=== PATIENT | male | born 1950 | race Caucasian/White ===

== ENCOUNTER → 2023-07-03 06:21 | Day surgery (SDC) | payer OTHER, SELFPAY ==
[2023-07-03 07:21] LABS: Glucose - Point of Care 99 mg/dl (70-99)
== END ==
LOC: GI 06:21
PROVIDERS: ATTENDING PHYSICIAN Surgery; FAMILY PHYSICIAN Family Medicine
DX: Z12.11 Encounter for screening for malignant neoplasm of colon (principal); Z86.010 Personal history of colon polyps; K57.30 Diverticulosis of large intestine without perforation or abscess without bleeding; K64.4 Residual hemorrhoidal skin tags; D12.5 Benign neoplasm of sigmoid colon
CPT/HCPCS: 45380; 88305; 82962

== ENCOUNTER → 2024-06-27 14:16 | Outpatient (REF) | payer OTHER, SELFPAY | LOC: DHSLP 14:16 | PROVIDERS: ATTENDING PHYSICIAN Internal Medicine; FAMILY PHYSICIAN Family Medicine | DX: G47.33 Obstructive sleep apnea (adult) (pediatric) (principal); R09.02 Hypoxemia; G47.00 Insomnia, unspecified | CPT/HCPCS: 95810 ==

== ENCOUNTER 2024-10-08 13:57 | Inpatient (IN) | payer OTHER, SELFPAY ==
[2024-10-08] VITALS (13 sets, daily range): BP systolic 92–129; BP diastolic 44–70; PULSE 75; BMI 30.9; BMI 29.9
--- NOTE | 2024-10-08 09:33 | ED.GENMED ---
History of Present Illness
General
Chief Complaint: Abnormal Lab Value
Time Seen by Provider: 10/08/24 09:26
History of Present Illness
History of Present Illness:
74-year-old male history of diabetes presenting with abnormal labs. Patient states that he had routine blood work that showed a hemoglobin of 6.9 and platelets 15 prompting ED arrival. Patient reports history of hemorrhoids and noticed blood with
wiping. Patient states that he feels more cold for the past 3 to 4 weeks. Patient denies chest pain, shortness of breath, dizziness, or abdominal pain. Patient is not on blood thinners.
Past History
Past History
ED Past Medical History: Hypercholesterolemia, NIDDM, VA and Other (Diverticulitis)
ED Past Surgical History: Cardiac (Stent X1)
Social History
Tobacco: Former smoker
Alcohol: None
Personal:
Living: with family
Phy Exam
Physical Exam
Physical Exam:
General: Alert, no acute distress
Head: NCAT
Eyes: clear conjunctiva
Neck: supple
Cardiac: regular rate and rhythm, no murmur
Lungs: clear to auscultation bilaterally. No wheezes, rales, or rhonchi. Speaking full unlabored sentences. No respiratory distress.
Abdomen: soft, nondistended nontender. No rebound or guarding.
MSK: no lower extremity edema bilaterally. No deformity
: brown stool, guaiac negative. nonthrombosed nonbleeding external hemorrhoids
Skin: warm, dry
Neuro: Alert and oriented x3. no focal deficits
Course
Orders/Labs/Results
Orders:
Orders
10/08/24 Breakfast
1800 calorie (15 carb) Diabetic
At Your Request: Full Participation
10/08/24 10:12
Type+Screen Urgent
Basic Metabolic Panel Urgent
CBC/With Diff [Complete Blood Count/With Diff] Urgent
Ferritin Urgent
Comment: ADD ON
Folate Urgent
Comment: ADD ON
Reticulocyte Count Urgent
Comment: ADD ON
Vitamin B12 Urgent
Comment: ADD ON
10/08/24 13:08
Admit/Transfer Patient As Directed
Co-Sign Provider:
Level of Care: Inpatient admission
Assign to:: Telemetry
Physician / Group: husam
Diagnosis: pancytopenia
Reason for Telemetry: Other
Other Reason for Telemetry: pancytopenia
Date to Stop Telemetry: 10/10/24
Time to Stop Telemetry: 11:00
Reason for Hospitalization: pancytopenia
Expected length of stay greater than two midnights?: Yes
ELOS- Estimated Length of Stay in days: 3
I certify the patient meets the requirements for IP care: Yes
PRN Pain Medication Management As Directed
May give lesser potent ordered pain med per pt: Yes
preference::
Protocol:: Medication orders for pain may be administered in a
manner that supports deferring to patient preference
when the pt is:
- Requesting an ordered lesser potent pain medication.
Least to most potent pain medications are defined
as: acetaminophen < NSAID < tramadol < opioids
(morphine, oxycodone, hydromorphone).
- Requesting a lesser dose of the same medication IF
ORDERED.
- Requesting a less intrusive route of administration
if both routes are prescribed by the provider (PO <
IV).
10/08/24 13:10
Code Status As Directed
Resuscitation Status: Full Code
10/08/24 17:07
HEMATOLOGY CONSULT Routine
Consulting Provider: Wili Duffy
Was physician already notified: Yes
10/08/24 17:08
Acetaminophen [Tylenol] 650 mg PO Q4HPRN PRN
Bisacodyl [Dulcolax] 10 mg RECTAL [id number] PRN
Dextrose 50%-Water [Dextrose 50% Syringe] 12.5 grams IV [id number] PRN
Docusate W/Senna [Senokot-S] 1 tablet PO BIDPRN PRN
Glucagon [GlucaGen] 1 mg IM PRN PRN
Insulin Aspart Corrective Low [Novolog Flexpen-Low Resistance] See Protocol SC AC
Polyethylene Glycol Powder [Miralax] 17 grams PO DAILYPRN PRN
10/08/24 17:08
Activity As Directed
Activity Level: As Tolerated
Bedside Glucose Monitoring As Directed
Frequency: AC&HS
Additional Instructions:: Change to q6h if pt on TPN, tube feeding or not eating
Pneumatic Compression Sleeves As Directed
Type: Knee high
Vital Signs As Directed
Frequency: Per unit guidelines
DX Deep Vein Thrombosis Video Routine
10/08/24 18:00
Rosuvastatin Calcium [Crestor] 40 mg PO QPM
10/09/24 06:27
Basic Metabolic Panel IN AM
Complete Blood Count/No Diff IN AM
Glycohemoglobin (HgbA1c) IN AM
10/09/24 08:00
Aspirin Chewable [Low Strength Aspirin] 81 mg PO DAILY
Fenofibrate [Tricor] 48 mg PO DAILY
Lisinopril [Zestril] 5 mg PO DAILY
Metoprolol Xl [Toprol Xl] 25 mg PO DAILY
10/10/24 11:00
DC Protocol for Telemetry ONCE
Abnormal Lab Results
10/08/24
10:12
WBC 1.5 L* 10^3/uL
(4.8-10.8)
RBC 1.84 L 10^6/uL
(4.70-6.10)
Hgb 7.0 L g/dL
(13.0-18.0)
Hct 20.1 L* %
(39.0-52.0)
MCV 109.2 H fL
(80.0-94.0)
MCH 38.0 H pg
(27.0-31.0)
RDW 16.1 H %
(11.5-14.5)
Plt Count 17 L* 10^3/uL
(130-400)
Absolute Neuts (auto) 0.2 L* 10^3/uL
(1.4-6.5)
Immature Gran % 0.7 H %
(0-0.5)
Neutrophils % 12.9 L %
(42.2-75.2)
Lymphocytes % 83.0 H %
(20.5-51.1)
Chloride 109 H mmol/L
(98-107)
Carbon Dioxide 20 L mmol/L
(22-30)
Glucose 103 H mg/dl
(70-99)
Folate > 20.0 H ng/ml
(2.76-20)
Crossmatch IS Only See Detail
10/08/24 10:12
10/08/24 10:12
Vital Signs
Initial and Last Documented VS:
Initial Vital Signs
Temp Pulse Resp BP Pulse Ox
97.7 F 78 16 100/52 98
10/08/24 08:41 10/08/24 08:41 10/08/24 08:41 10/08/24 08:41 10/08/24 08:41
Last Documented Vital Signs
Temp Pulse Resp BP Pulse Ox
98.3 F 73 17 128/62 100
10/09/24 16:31 10/09/24 16:31 10/09/24 16:31 10/09/24 16:31 10/09/24 16:31
MDM/Problems Addressed
Differential Diagnosis Includes:
Anemia, thrombocytopenia, malignancy
MDM/Problems Addressed:
Results reviewed. Significant for pancytopenia with WBC 1.5, hemoglobin 7, platelets 17. Given patient is asymptomatic and not actively bleeding, will hold on transfusion at this time. Discussed with Dr. Duffy, hematology/oncology. Discussed with
hospitalist for admission
*Critical Care Note
Total Time (30-74mins, 75-104mins- exclusive of procedures): Not Applicable
ED Attending Note
-
Portions of this chart may have been created with voice recognition software.� Occasional wrong word or��sound alike� substitutions may have occurred due to the inherent limitations of voice recognition software.
Discharge Plan
Departure
Patient Disposition: Admit
Date of Disposition: 10/08/24
Time of Disposition: 12:44
Presentation/result/management discussed w/ accepting MD/DO: Hospitalist
Discharge Problem:
Pancytopenia
Interventions
Interventions:
*Risk Screen - Suicide Last Done: 10/08/24 08:41
*Neglect/Abuse Screening Last Done: 10/08/24 08:41
*ED COVID-19 Vaccine History Last Done: 10/08/24 10:27
*Nursing Disposition Last Done: 10/08/24 17:05
Discharge Date and Time
Discharge Date/Time: 10/08/24 17:05
[2024-10-08 10:35] LABS: Hematocrit 20.1 % (39.0-52.0); Mean Corp Hgb Conc. 34.8 g/dL (33.0-37.0); Mean Corpuscular Volume 109.2 fL (80.0-94.0); Platelet Count 17 10^3/uL (130-400); Red Blood Cell Count 1.84 10^6/uL (4.70-6.10); Red Cell Dist. Width 16.1 % (11.5-14.5); White Blood Cell Count 1.5 10^3/uL (4.8-10.8)
[2024-10-08 10:48] LABS: Blood Urea Nitrogen 19 mg/dl (9-20); Calcium 9.2 mg/dl (8.4-10.2); Carbon Dioxide 20 mmol/L (22-30); Chloride 109 mmol/L (98-107); Estimated Creatinine Clearance 83 ml/min; Glucose 103 mg/dl (70-99); Sodium 138 mmol/L (135-145); eGFR > 60.00
[2024-10-08 11:21] LABS: % Immature Granulocytes 0.7 % (0-0.5); % Monocytes 3.4 % (1.7-9.3); % Neutrophils 12.9 % (42.2-75.2); Absolute Lymphocytes 1.2 10^3/uL (1.2-3.4); Absolute Monocytes 0.1 10^3/uL (0.1-0.6); Absolute Neutrophils 0.2 10^3/uL (1.4-6.5); Nucleated Red Blood Cells % 0 % (-)
--- NOTE | 2024-10-08 12:54 | HPS.HSE ---
Addendum entered and electronically signed by Miguel Boone MD 10/08/24 14:07:
I saw and examined the patient.
The [employer]FT [employer] WR[employer] EXAMINER or PA's note was reviewed and I agree with the note.
Comment:
74-year-old male with past medical history of diabetes, hyperlipidemia, PCI now presents for pancytopenia from outpatient facility.� No clear fever, chills, sick contacts.� No obvious active GI bleed other than possible blood with wiping, indicative
of most likely hemorrhoids.� Not on any anticoagulation or antiplatelets.� Does acknowledge feeling more cold over the last 3 to 4 weeks.� Otherwise denies fever, chills, urinary symptoms, pulmonary symptoms.
Plan�heme consult.� Transfuse for hemoglobin greater than 7; transfuse platelets as per hematology.� Ideally goal over 10k if� no bleeding. Steroids as per hematology.� Will obtain urine and blood cultures for completeness. Bone marrow bx as per
heme depending on administration clearance. CT head for headache
Original Note:
Family Physician
-
Family Physician: Angela Lucio
Chief Complaint
-
abnormal blood work
History of Present Illness
74-year-old male history of diabetes,CAD presenting with abnormal labs. Patient states that he had routine blood work that showed a hemoglobin of 6.9 and platelets 15 prompting ED arrival. patient stated MEJIA from this morning. denied dizzy or
syncope. denied fever. stated chills for past few weeks. denied chest pain, sob. denied abdominal pain,n,v,d. patient has hemorrhoids but only bleeds rarely when wiping. denied dysuria or hematuria.
upon arrival he was noted pancytopenic. admitting for further managment.
Medical History
Past Medical History
Past Medical History: Reports Other
Additional Past Medical History:
CAD
DM
HLD
HTN
Past Surgical History: Reports Other
Additional Past Surgical History:
cardiac stent
Social History
Tobacco: Former Smoker
Alcohol: None
Drug: None
Personal:
Living: With Family
Family History
Family History: Not pertinent
Allergies / Home Medications
Allergies reflects when Allergies were last updated in [employer].
Home Medications with original date entered in [employer]
Allergy/Medication List:
Allergies
Allergy/AdvReac Type Severity Reaction Status Date / Time
amoxicillin Allergy Unknown Verified 08/29/18 11:22
sulfamethoxazole (From Allergy Unknown Verified 08/29/18 11:22
Septra)
trimethoprim (From ) Allergy Unknown Verified 08/29/18 11:22
Home Medications
lisinopril 5 mg tablet 5 mg PO DAILY 05/26/18
aspirin 81 mg chewable tablet 81 mg PO DAILY 05/27/18
metoprolol succinate 25 mg tablet,extended release 24 hr 25 mg PO DAILY ##90 05/27/18
B6 35 mg-B9 3 mg-B12 2 mg-D3 62.5 mcg-ALA 300 mg capsule,delay release (EB-N5 DR) 1 cap PO BID 10/08/24
acetaminophen 325 mg tablet (Tylenol) 650 mg PO Q6HPRN PRN mild pain 10/08/24
ascorbic acid (vitamin C) 500 mg tablet (Vitamin C) 500 mg PO DAILY 10/08/24
cholecalciferol (vitamin D3) 25 mcg (1,000 unit) tablet (Vitamin D3) 25 mcg PO DAILY 10/08/24
cyanocobalamin (vitamin B-12) 1,000 mcg tablet 1,000 mcg PO DAILY 10/08/24
empagliflozin 25 mg tablet 12.5 mg PO DAILY 10/08/24
fenofibrate micronized 134 mg capsule 134 mg PO DAILY 10/08/24
omega-3 fatty acids-fish oil 684 mg-1,200 mg capsule,delayed release 1 cap PO TID 10/08/24
psyllium 1 packet PO DAILYPRN PRN constipation 10/08/24
rosuvastatin 40 mg tablet (Crestor) 40 mg PO QPM 10/08/24
therapeutic multivitamin 1 tab PO DAILY 10/08/24
tirzepatide 12.5 mg/0.5 mL subcutaneous pen injector (Mounjaro) 12.5 mg SC STEINBERG@199910/08/24
Review of Systems
-
Constitutional: Reports No Symptoms
EENT: Reports No Symptoms
Respiratory: Reports No Symptoms
Cardiac: Reports No Symptoms
Abdomen/GI: Reports No Symptoms
: Reports No Symptoms
Musculoskeletal: Reports No Symptoms
Skin: Reports No Symptoms
Neurological: Reports Headache
Endocrine: Reports No Symptoms
Hematologic/Lymphatic: Reports No Symptoms
Psych: Reports No Symptoms
Physical Exam
Vital Signs
Vital Signs
Temp Pulse Resp BP Pulse Ox
97.7 F 77 16 101/50 100
10/08/24 08:41 10/08/24 12:47 10/08/24 08:41 10/08/24 12:00 10/08/24 12:45
Physical Exam
General: Well Developed, Well Nourished and No Apparent Distress
HEENT: NormoCephalic, Moist mucous membranes and Atraumatic
Respiratory: Clear
Cardiac: S1/S2 and Regular Rhythm; No Murmur or Rub
GI: Soft, Non Tender, Non Distended and Normal Bowel Sounds; No Organomegaly
Rectal: Deferred by Provider
Musculoskeletal: No Clubbing, No Cyanosis and No Edema
Skin: No Rash
Neuro: AO x 3 and Nonfocal/grossly intact
Psych: Calm
Laboratory Results
-
10/08/24 10:12
10/08/24 10:12
Laboratory Results
PT Cancelled 10/08/24 10:12
INR Cancelled 10/08/24 10:12
APTT Cancelled 10/08/24 10:12
Total Bilirubin Cancelled 10/08/24 10:12
AST Cancelled 10/08/24 10:12
ALT Cancelled 10/08/24 10:12
Alkaline Phosphatase Cancelled 10/08/24 10:12
Data Reviewed
-
Lab Data: Labs Reviewed by me
Impression/Plan
-
# Pancytopenia unclear cause
- Hematology consulted
- WBC 1.5, hemoglobin 7.0, platelets 17
-d/w hematology, plan for Bone Marrow Biopsy
-as per heme transfuse if hgb less than 7, and platelets less than 10
-transfusing with one unit of blood as per hematology.
-will obtain blood culture and UA
#headache
-will obtain MEJIA
# Coronary artery disease status post cardiac stent
- Aspirin
# Type 2 diabetes
- Hold Jardiance and Mounjaro
- Sliding scale, CHO diet
# Hyperlipidemia
- Fenofibrate, rosuvastatin continued
# Essential hypertension
- Lisinopril, metoprolol continue with hold parameters
# DVT prophylaxis
- SCDs
# CODE STATUS
- Full code
--- NOTE | 2024-10-08 13:38 | CON.ONC ---
Addendum entered and electronically signed by MELINDA Mcgowan 10/08/24 17:26:
Inpatient bone marrow biopsy approved by Dr. Tubbs -order placed and tiger texted interventional radiology
Addendum entered and electronically signed by Wili Duffy DO 10/08/24 15:36:
Patient was examined and chart reviewed independently. Agree with the impression and plan as outlined by MELINDA. Patient with progressive and severe pancytopenia likely with a primary bone marrow dysfunction with elevated leukocytes and lymphocytes.
He has a history of previous evaluation for flow cytometry which was negative for clonal process in 2020. although unlikely to be a transplant candidate at 74 his performance status would not obviously preclude this is a possibility. As such,
would consider irradiated and CMV negative blood products at this juncture. Bone marrow biopsy will likely be necessary for definitive diagnosis.
Original Note:
Consultation
-
Date Consultation Requested: 10/08/24
Date Consultation Performed: 10/08/24
Requesting Provider: Mahi LAWRENCE
Performing Provider: Wili Duffy
Reason for Consultation: pancytopenia
Impression
Impression
74yo M admitted for evaluation of acute pancytopenia
hx mild anemia, thrombocytopenia, leukocytosis/lymphocytosis with negative peripheral flow in 2020
vestibular Schwannoma
Plan
Plan
neutropenic precautions, monitor for infection. Currently no symptoms of acute infection and afebrile
transfuse Hgb <7 or as needed for sxs anemia.
transfuse platelet count <10, <20 if febrile, <50 if bleeding
Risk/benefit of transfusion reviewed and pt agreeable to transfusion prn
avoid nsaids, anticoagulation, and antiplatelet with platelet count <50,000
check iron studies, B12, folate
check DIC
check LDH, urate
Bone marrow biopsy purpose, risk/benefit discussed and patient is agreeable to bone marrow biopsy
Patient History
History of Present Illness
74yo M who presented at the advice of his PCP after routine blood work showed pancytopenia.
He denies any family or personal history of hematological or solid malignancy. He denies prior radiation, immunosuppressive drugs, or chemotherapy. He was previous evaluated by Dr. Zheng in 2020 for normocytic anemia, mild thrombocytopenia, and mild
leukocytosis with lymphocyte predominance. His Hgb was stable at that time 12-13gdL with a platelet count 120-140,000. His chronic lymphocytosis over several years remained stable between 10-12 that he was told could represent a monoclonal B
lymphocytosis of unknown significance with lymphocyte count <5x10^9/L and cytopenias could reflect a lymphoproliferative process. His peripheral flow showed no aberrant immunophenotypic expression, no blast so he deferred bone marrow biopsy at that
time.
Clinically, denies fever, chills, cough, chest pain, palpitations, n/v/d/c or abdominal pain. He reports that he is independent in ADLs and live an active lifestyle at baseline, however, he has noticed a decreased in exercise endurance over the past
5 weeks due to leg muscle fatigue. He reports a mild frontal headache since this morning but otherwise denies any other neurological symtpoms.
Patient is at bedsdie during visit provided updates and questions answered.
Past-Medical/Surgical History
PMH colon polyps, CAD, GA, DM2, JERRY, HLD, chronic urinary retention, vestibular schwannoma
PSH Angioplasty and Stent to Left Anterior Descending Artery-05/26/2018, Stapedectomy Left Ear -1992
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 former smoker. denies ETOH or recreational drugs
Family deneis malganncy
Patient Medication
�Medication �Instructions �Recorded �Confirmed �Last Taken �Type
lisinopril 5 mg tablet 5 mg PO DAILY 05/26/18 10/08/24 10/07/24 History
aspirin 81 mg chewable tablet 81 mg PO DAILY 05/27/18 10/08/24 10/07/24 Rx
metoprolol succinate 25 mg 25 mg PO DAILY ##90 05/27/18 10/08/24 10/07/24 Rx
tablet,extended release 24 hr
B6 35 mg-B9 3 mg-B12 2 mg-D3 62.5 1 cap PO BID 10/08/24 10/08/24 10/07/24 History
mcg-ALA 300 mg capsule,delay
release (EB-N5 DR)
acetaminophen 325 mg tablet 650 mg PO Q6HPRN PRN mild pain 10/08/24 10/08/24 10/07/24 History
(Tylenol)
ascorbic acid (vitamin C) 500 mg 500 mg PO DAILY 10/08/24 10/08/24 10/07/24 History
tablet (Vitamin C)
cholecalciferol (vitamin D3) 25 25 mcg PO DAILY 10/08/24 10/08/24 10/07/24 History
mcg (1,000 unit) tablet (Vitamin
D3)
cyanocobalamin (vitamin B-12) 1,000 mcg PO DAILY 10/08/24 10/08/24 10/07/24 History
1,000 mcg tablet
empagliflozin 25 mg tablet 12.5 mg PO DAILY 10/08/24 10/08/24 10/07/24 History
fenofibrate micronized 134 mg 134 mg PO DAILY 10/08/24 10/08/24 10/07/24 History
capsule
omega-3 fatty acids-fish oil 684 1 cap PO TID 10/08/24 10/08/24 10/07/24 History
mg-1,200 mg capsule,delayed release
psyllium 1 packet PO DAILYPRN PRN 10/08/24 10/08/24 10/08/24 History
constipation
rosuvastatin 40 mg tablet (Crestor) 40 mg PO QPM 10/08/24 10/08/24 10/07/24 History
therapeutic multivitamin 1 tab PO DAILY 10/08/24 10/08/24 10/07/24 History
tirzepatide 12.5 mg/0.5 mL 12.5 mg SC STEINBERG@199910/08/24 10/08/24 10/04/24 History
subcutaneous pen injector
(Ernestounheidiro)
Review of Systems
-
ROS is notable for HPI, otherwise negative
Physical Exam
-
General: Well Developed, Well Nourished, No Apparent Distress and Comfortable
HEENT: Moist Mucous Membranes; Negative Jaundice
Cardiology: Normal Sinus Rhythm
Pulmonary: Clear
GI: Soft
Extremities: Pulses Present; Negative Edema
Neurology: Non Focal
Skin: Warm
Hematologic / Lymphatic: No Lymphadenopathy
Psych: Calm
Labs
Lab Results
WBC 1.5 10^3/uL (4.8-10.8) L* 10/08/24 10:12
RBC 1.84 10^6/uL (4.70-6.10) L 10/08/24 10:12
Hgb 7.0 g/dL (13.0-18.0) L 10/08/24 10:12
Hct 20.1 % (39.0-52.0) L* 10/08/24 10:12
MCV 109.2 fL (80.0-94.0) H 10/08/24 10:12
MCH 38.0 pg (27.0-31.0) H 10/08/24 10:12
MCHC 34.8 g/dL (33.0-37.0) 10/08/24 10:12
RDW 16.1 % (11.5-14.5) H 10/08/24 10:12
Plt Count 17 10^3/uL (130-400) L* 10/08/24 10:12
MPV Not Reportable 10/08/24 10:12
Abs Immat Gran (auto) 0.0 10^3/uL (0-0.05) 10/08/24 10:12
Absolute Neuts (auto) 0.2 10^3/uL (1.4-6.5) L* 10/08/24 10:12
Absolute Lymphs (auto) 1.2 10^3/uL (1.2-3.4) 10/08/24 10:12
Absolute Monos (auto) 0.1 10^3/uL (0.1-0.6) 10/08/24 10:12
Absolute Eos (auto) 0.0 10^3/uL (0-0.7) 10/08/24 10:12
Absolute Basos (auto) 0.0 10^3/uL (0-0.2) 10/08/24 10:12
Immature Gran % 0.7 % (0-0.5) H 10/08/24 10:12
Neutrophils % 12.9 % (42.2-75.2) L 10/08/24 10:12
Lymphocytes % 83.0 % (20.5-51.1) H 10/08/24 10:12
Monocytes % 3.4 % (1.7-9.3) 10/08/24 10:12
Eosinophils % 0.0 % (0-6) 10/08/24 10:12
Basophils % 0.0 % (0-2) 10/08/24 10:12
Creatinine 0.8 mg/dL (0.7-1.3) 10/08/24 10:12
Vital Signs
Vital Signs
Temp Pulse Resp BP Pulse Ox
97.7 F 77 16 101/50 100
10/08/24 08:41 10/08/24 12:47 10/08/24 08:41 10/08/24 12:00 10/08/24 12:45
[2024-10-08 14:10] LABS: Reticulocyte Count 1.2 % (0.4-2.8)
[2024-10-08 16:17] LABS: Folate > 20.0 ng/ml (2.76-20); Vitamin B12 659 pg/ml (239-931)
--- NOTE | 2024-10-08 16:29 | CM ---
Met with patient in the ED
Pharmacy verified: [facility] @ [address] [facility], [place], [place]
Patient lives with ; one floor rancher; [address] + community; 1 step to enter; bath has stall shower w/ grab bar and seat; also has a shower chair if needed
PLOF: patient reported he is independent with ambulation, stairs, and ADLs; retired; drives
DME: CPAP; reported he has a Glucometer but has not used it in a while
will transport home
No SNF or Home Health utilization history
Plan: anticipate discharge to home; Case Management will monitor for discharge needs/services
[2024-10-08 17:29] LABS: Glucose - Point of Care 102 mg/dl (70-99)
[2024-10-08] MEDS: CRESTOR 40 MG PO (17:40)
--- NOTE | 2024-10-08 18:40 | PTCARENOTE ---
1840 1 unit of PRBC started. Possible transfusion reaction education given to pt. PT AAOX3. All needs met. Will stay with pt for 15 minutes per policy.
[2024-10-08 21:00] LABS: Glucose - Point of Care 105 mg/dl (70-99)
[2024-10-09] VITALS (14 sets, daily range): BP systolic 65–128; BP diastolic 50–77
[2024-10-09 07:21] LABS: Iron 138 ug/dl (49-181); LDH 153 U/L (120-246); Uric Acid 3.1 mg/dl (3.5-8.5)
[2024-10-09 07:25] LABS: Hematocrit 20.9 % (39.0-52.0); Hemoglobin 7.4 g/dL (13.0-18.0); Mean Corp Hgb Conc. 35.4 g/dL (33.0-37.0); Mean Corpuscular Hgb 36.5 pg (27.0-31.0); Platelet Count 14 10^3/uL (130-400); Red Blood Cell Count 2.03 10^6/uL (4.70-6.10); Red Cell Dist. Width 18.5 % (11.5-14.5); White Blood Cell Count 1.6 10^3/uL (4.8-10.8)
[2024-10-09 07:30] LABS: Percent Saturation 39 % (20-50); Total Iron Binding Capacity 350 ug/dl (261-462)
[2024-10-09 07:32] LABS: INR 1.04; PT 14.1 Sec (11.4-14.6)
[2024-10-09 07:33] LABS: APTT 25.8 Sec (23.4-35.0); Fibrinogen 366 MG/DL (199-459)
[2024-10-09 07:35] LABS: Glucose - Point of Care 104 mg/dl (70-99)
[2024-10-09 07:36] LABS: D-Dimer 0.61 ug/mlFEU (0.00-0.50)
[2024-10-09 08:06] LABS: Blood Urea Nitrogen 16 mg/dl (9-20); Calcium 8.6 mg/dl (8.4-10.2); Carbon Dioxide 18 mmol/L (22-30); Chloride 112 mmol/L (98-107); Estimated Creatinine Clearance 94 ml/min; Glucose 97 mg/dl (70-99); Sodium 137 mmol/L (135-145); eGFR > 60.00
[2024-10-09] MEDS: TOPROL XL 25 MG PO (08:36)
[2024-10-09] MEDS: TRICOR 48 MG PO (08:37)
[2024-10-09] MEDS: ZESTRIL 5 MG PO (08:37)
[2024-10-09 09:46] LABS: Glycohemoglobin (HgbA1c) 5.3 % (4.0-5.6)
--- NOTE | 2024-10-09 11:20 | W.PN.ONC2 ---
Today's Communication / Plan
-
I will arrange for close follow for labs every Sat and for prn transfusion
I will arrange for OP follow up with Dr. Zheng upon discharge
Impression
Impression
74yo M admitted for evaluation of acute pancytopenia
hx mild anemia, thrombocytopenia, leukocytosis/lymphocytosis with negative peripheral flow in 2020
vestibular Schwannoma
Plan
Plan
neutropenic precautions, monitor for infection. Currently no symptoms of acute infection and afebrile
transfuse Hgb <7 or as needed for sxs anemia.
transfuse platelet count <10, <20 if febrile, <50 if bleeding
Risk/benefit of transfusion reviewed and pt agreeable to transfusion prn
avoid nsaids, anticoagulation, and antiplatelet with platelet count <50,000
Bone marrow biopsy today, risk/benefit discussed and patient is agreeable to bone marrow biopsy
Subjective/Objective
Subjective
denies fever or symptoms of infection
denies SOB or cough
improved fatigue and exercise tolerance after 1U prbc
denies over bleeding
Vital Signs:
Vital Signs
Temp Pulse Resp BP Pulse Ox
98.0 F 69 18 118/57 100
10/09/24 10:55 10/09/24 10:55 10/09/24 10:55 10/09/24 10:55 10/09/24 10:55
Lab Results:
Laboratory Data
WBC 1.6 10^3/uL (4.8-10.8) L* 10/09/24 06:27
Hgb 7.4 g/dL (13.0-18.0) L 10/09/24 06:27
Plt Count 14 10^3/uL (130-400) L* 10/09/24 06:27
PT 14.1 Sec (11.4-14.6) 10/09/24 06:27
INR 1.04 10/09/24 06:27
APTT 25.8 Sec (23.4-35.0) 10/09/24 06:27
eGFR > 60.00 10/09/24 06:27
Physical Exam
HEENT: Moist Mucous Membranes; No Jaundice
Cardiology: Normal Sinus Rhythm
Pulmonary: Clear
GI: Soft
Extremities: Pulses Present; No Edema
Orders
Orders
Orders From Last 24 Hours
10/08/24 13:58
Add On- LAB Routine
Precautions As Directed
10/08/24 13:59
Blood Bank Products [* Blood Bank Products] Routine
10/08/24 17:21
Consult Interventional Radiology [IRAD CONSULT] Routine
10/09/24 06:27
Copper, Serum [S] IN AM
D-Dimer IN AM
Fibrinogen IN AM
PT/INR [Prothrombin Time] IN AM
PTT IN AM
10/09/24 11:19
Blood Bank Products [* Blood Bank Products] Routine
[2024-10-09] MEDS: NSS (PRESERVATIVE FREE) 0.25 ML IV (11:43)
[2024-10-09] MEDS: ATIVAN 0.5 MG IV (11:43)
[2024-10-09] MEDS: FLUSH (NSS) 1 FLUSH IV (11:43)
[2024-10-09 13:22] LABS: Glucose - Point of Care 97 mg/dl (70-99)
--- NOTE | 2024-10-09 13:34 | W.PN.HOSP.TC ---
Addendum entered and electronically signed by Miguel Boone MD 10/09/24 15:50:
[id number]
Original Note:
Today's Communication/Plan
-
Bone marrow Bx
F/u close lab work with hematology outpatient
Assessment / Plan
Assessment / Plan
Physical Exam
General: Well Developed, Well Nourished and No Apparent Distress
HEENT: NormoCephalic, Moist mucous membranes and Atraumatic
Respiratory: Clear
Cardiac: S1/S2 and Regular Rhythm; No Murmur or Rub
GI: Soft, Non Tender, Non Distended and Normal Bowel Sounds; No Organomegaly
Rectal: Deferred by Provider
Musculoskeletal: No Clubbing, No Cyanosis and No Edema
Skin: No Rash
Neuro: AO x 3 and Nonfocal/grossly intact
Psych: Calm
# Pancytopenia unclear cause
- Hematology consulted
- WBC 1.5, hemoglobin 7.0, platelets 17
-d/w hematology, plan for Bone Marrow Biopsy
-as per heme transfuse if hgb less than 7, and platelets less than 10
-transfusing with one unit of blood as per hematology.
-UA neg; no evidence of infection
-Bone marrow bx today
-Close outpatient labs
-close follow for labs every Sat and for prn transfusion
-Onc outpt
#headache
-resolved
-ct head neg
# Coronary artery disease status post cardiac stent
- Aspirin
# Type 2 diabetes
- Hold Jardiance and Mounjaro
- Sliding scale, CHO diet
# Hyperlipidemia
- Fenofibrate, rosuvastatin continued
# Essential hypertension
- Lisinopril, metoprolol continue with hold parameters
# DVT prophylaxis
- SCDs
# CODE STATUS
- Full code
Possible DC today after bone marrow bx
More than 30 minutes spent in discharge including
Final examination of the patient
Summarizing hospital stay
Instructions for continuing care to all relevant caregivers
Preparation of discharge records, prescriptions, and referral forms
Total time spent (in minutes): 35
Anticipated Discharge: Today
Subjective/Interval History
-
Date of Service: October 09, 2024
No acute events overnight
Objective Data
-
Labs:
Laboratory Results
10/09/24
06:27
WBC 1.6 L*
Hgb 7.4 L
Hct 20.9 L*
Plt Count 14 L*
PT 14.1
INR 1.04
APTT 25.8
Sodium 137
Potassium 4.0
Chloride 112 H
Carbon Dioxide 18 L
BUN 16
Creatinine 0.7
Glucose 97
Calcium 8.6
Vital Signs:
Vital Signs
Temp Pulse Resp BP Pulse Ox
97.8 F 70 16 126/59 100
10/09/24 13:20 10/09/24 13:20 10/09/24 13:20 10/09/24 13:20 10/09/24 13:20
I&O
10/08/24 10/09/24 10/10/24
06:59 06:59 06:59
Intake Total 900 / 900 50 / 50
Output Total 1000 / 1000 200 / 200
Balance -100 / -100 -150 / -150
Review of Systems
-
History Source: Patient
All other systems: Not reviewed unless documented
Data Reviewed
-
CT Scan: Report Reviewed by me
Labs: Labs Reviewed by me
--- NOTE | 2024-10-09 13:41 | W.DS.TRANS ---
DC Summary - Customer Care Specialist
-
Discharge Instructions:
Discharge Diagnosis/Procedures pancytopenia
Diet Low Fat,Low Cholesterol,Diabetic, Carb
Controlled
Blood Work close follow for labs every Sat and for
prn transfusion
Instructions:
Stand-Alone Forms:
Changes to Home Medications: Yes
Discharge Medications:
DC Medications w/original date entered in [facility]
lisinopril 5 mg tablet 5 mg PO DAILY Blood Pressure 05/26/18
B6 35 mg-B9 3 mg-B12 2 mg-D3 62.5 mcg-ALA 300 mg capsule,delay release (EB-N5 DR) 1 cap PO BID Supplement 10/08/24
acetaminophen 325 mg tablet (Tylenol) 650 mg PO Q6HPRN PRN mild pain 10/08/24
ascorbic acid (vitamin C) 500 mg tablet (Vitamin C) 500 mg PO DAILY Supplement 10/08/24
aspirin 81 mg chewable tablet 81 mg PO DAILY Heart Disease/Condition 10/08/24
Held on 10/09/24. Instructions: Resume on 10/28/24. until cleared by Hematology
cholecalciferol (vitamin D3) 25 mcg (1,000 unit) tablet (Vitamin D3) 25 mcg PO DAILY Supplement 10/08/24
cyanocobalamin (vitamin B-12) 1,000 mcg tablet 1,000 mcg PO DAILY Supplement 10/08/24
empagliflozin 25 mg tablet 12.5 mg PO DAILY Diabetes 10/08/24
fenofibrate micronized 134 mg capsule 134 mg PO DAILY High Cholesterol 10/08/24
metoprolol succinate 25 mg tablet,extended release 24 hr 25 mg PO DAILY Blood Pressure 10/08/24
omega-3 fatty acids-fish oil 684 mg-1,200 mg capsule,delayed release 1 cap PO TID High Cholesterol 10/08/24
psyllium 1 packet PO DAILYPRN PRN constipation 10/08/24
rosuvastatin 40 mg tablet (Crestor) 40 mg PO QPM High Cholesterol 10/08/24
therapeutic multivitamin 1 tab PO DAILY Supplement 10/08/24
tirzepatide 12.5 mg/0.5 mL subcutaneous pen injector (Rosas) 12.5 mg SC STEINBERG@1999 Diabetes 10/08/24
Home Medication Changes
stop aspirin
Pending Results: No
[2024-10-09 16:27] LABS: Glucose - Point of Care 143 mg/dl (70-99)
--- NOTE | 2024-10-12 11:24 | CM ---
discharge dispo entered.
== END 2024-10-09 17:31 | disposition home or self-care (01) | DRG 810 ==
LOC: 3 WEST ACU 13:57
PROVIDERS: Nurse Practitioner Acute Care; Radiology Diagnostic Radiology; Registered Nurse; ADMITTING PHYSICIAN Internal Medicine; CONSULT PHYSICIAN Internal Medicine Hematology & Oncology; EMERGENCY PHYSICIAN Emergency Medicine; FAMILY PHYSICIAN Family Medicine
PROC: 30233N1 Transfusion of Nonautologous Red Blood Cells into Peripheral Vein, Percutaneous Approach (ICD-10-PCS; 2024-10-08)
PROC: 07DR3ZX Extraction of Iliac Bone Marrow, Percutaneous Approach, Diagnostic (ICD-10-PCS; 2024-10-09)
PROC: 30233R1 Transfusion of Nonautologous Platelets into Peripheral Vein, Percutaneous Approach (ICD-10-PCS; 2024-10-09)
PROC: 079T3ZX Drainage of Bone Marrow, Percutaneous Approach, Diagnostic (ICD-10-PCS; 2024-10-09)
DX: D61.818 Other pancytopenia (principal); Z87.891 Personal history of nicotine dependence; I25.10 Atherosclerotic heart disease of native coronary artery without angina pectoris; Z95.5 Presence of coronary angioplasty implant and graft; E11.9 Type 2 diabetes mellitus without complications; E78.00 Pure hypercholesterolemia, unspecified; I10 Essential (primary) hypertension
CPT/HCPCS: 88305; 88311; 88312; 38222; 70450; 77012; 80048; 82525; 82607; 82728; 82746; 82962; 83036; 83540; 83550; 83615; 84550; 85025; 85027; 85045; 85379; 85384; 85610; 85730; 86850; 86900; 86901; 86920; 87040; 88313; 94660; 99284; P9058; P9073

== ENCOUNTER → 2024-10-15 13:14 | Outpatient (REF) | payer OTHER, SELFPAY ==
[2024-10-15 14:29] LABS: Hematocrit 19.6 % (39.0-52.0); Hemoglobin 6.9 g/dL (13.0-18.0); Mean Corp Hgb Conc. 35.2 g/dL (33.0-37.0); Mean Corpuscular Hgb 36.9 pg (27.0-31.0); Mean Corpuscular Volume 104.8 fL (80.0-94.0); Platelet Count 14 10^3/uL (130-400); Red Blood Cell Count 1.87 10^6/uL (4.70-6.10); White Blood Cell Count 1.8 10^3/uL (4.8-10.8)
[2024-10-15 15:08] LABS: % Eosinophils 0.6 % (0-6); % Lymphocytes 88.7 % (20.5-51.1); % Monocytes 1.7 % (1.7-9.3); Absolute Lymphocytes 1.6 10^3/uL (1.2-3.4); Absolute Neutrophils 0.2 10^3/uL (1.4-6.5); Nucleated Red Blood Cells % 0 % (-)
== END ==
LOC: REG 13:14
PROVIDERS: ATTENDING PHYSICIAN Internal Medicine Hematology & Oncology; FAMILY PHYSICIAN Family Medicine
DX: D61.818 Other pancytopenia (principal)
CPT/HCPCS: 36415; 85025; 86850; 86900; 86901; 86920

== ENCOUNTER 2024-10-16 07:17 | Emergency (ER) | payer OTHER, SELFPAY ==
[2024-10-16] VITALS (13 sets, daily range): BP systolic 108–128; BP diastolic 44–85; BMI 32.2
--- NOTE | 2024-10-16 08:01 | ED.GENMED ---
History of Present Illness
General
Chief Complaint: Abnormal Lab Value
Time Seen by Provider: 10/16/24 07:28
History of Present Illness
History of Present Illness:
74-year-old male with history of diabetes and recent diagnosis of pancytopenia presenting for concern of low platelets and hemoglobin. Patient has been following with hematology, recently admitted from 10/08 to 10/09, which time he received both blood
and platelet transfusion. Patient during this admission did have a bone marrow biopsy, unknown results. Patient had outpatient lab work completed yesterday, sent in for transfusion. Patient notes some generalized fatigue and feeling tired,
otherwise denies fever or recent illness. He denies any new bruising or bleeding. Does report some sores in his mouth. He denies chest pain, difficulty breathing, abdominal pain, or additional acute medical complaints
Past History
Past History
ED Past Medical History: Hypercholesterolemia, NIDDM, [place] and Other (Diverticulitis)
ED Past Surgical History: Cardiac (Stent X1)
Social History
Tobacco: Former smoker
Alcohol: None
Personal:
Living: with family
Phy Exam
Physical Exam
Physical Exam:
General: Well-appearing, no clinical signs of dehydration, nontoxic and in no acute distress
HEENT: protecting airway
Neck: appears supple
CV: Normal heart rate, regular rhythm
Resp: No accessory muscle use, no increased work of breathing, lungs clear to auscultation bilaterally
Abd: No distention
Extremities: No deformities, no swelling, no erythema
Neuro: alert, no focal neurologic deficit
: deferred
Rectal: deferred
Psych: Normal affect
Skin: Intact
Course
Orders/Labs/Results
Orders:
Orders
10/16/24 07:55
Complete Blood Count/With Diff Urgent
Comprehensive Metabolic Panel Urgent
10/16/24 08:55
Blood Bank Products [* Blood Bank Products] Urgent
Blood Bank Products: *Plt Single Donor Leuko
Quantity: 1
Transfuse Today: Yes
Reason: Thrombocytopenia
10/16/24 08:58
* Blood Bank Products Urgent
Blood Bank Products: *Packed RBC Leuko(PRBC's)
Quantity: 1
Transfuse Today: Yes
Reason: Thrombocytopenia
10/16/24 10:49
Type+Screen Urgent
BBK Wristband Number:
Abnormal Lab Results
10/15/24 10/16/24 10/16/24
13:32 07:55 10:49
WBC 1.5 L* 10^3/uL
(4.8-10.8)
RBC 1.87 L 10^6/uL
(4.70-6.10)
Hgb 6.9 L* g/dL
(13.0-18.0)
Hct 19.9 L* %
(39.0-52.0)
MCV 106.4 H fL
(80.0-94.0)
MCH 36.9 H pg
(27.0-31.0)
RDW 16.5 H %
(11.5-14.5)
Plt Count 13 L* 10^3/uL
(130-400)
Absolute Neuts (auto) 0.1 L* 10^3/uL
(1.4-6.5)
Absolute Monos (auto) 0.0 L 10^3/uL
(0.1-0.6)
Neutrophils % 9.6 L %
(42.2-75.2)
Lymphocytes % 87.6 H %
(20.5-51.1)
Chloride 109 H mmol/L
(98-107)
Glucose 103 H mg/dl
(70-99)
Crossmatch IS Only See Detail See Detail
10/16/24 07:55
10/16/24 07:55
Vital Signs
Initial and Last Documented VS:
Initial Vital Signs
Temp Pulse Resp BP Pulse Ox
97.7 F 70 16 121/60 100
10/16/24 07:24 10/16/24 07:24 10/16/24 07:24 10/16/24 07:24 10/16/24 07:24
Last Documented Vital Signs
Temp Pulse Resp BP Pulse Ox
98.3 F 79 16 125/57 100
10/16/24 12:16 10/16/24 12:16 10/16/24 12:16 10/16/24 12:17 10/16/24 12:30
MDM/Problems Addressed
MDM/Problems Addressed:
74-year-old male with recent diagnosis of pancytopenia presenting to the emergency department for concern of low hemoglobin and platelets. Vital signs are normal.
On exam patient is resting comfortably, no acute complaints, no acute distress. On review of EMR, hemoglobin from labs yesterday was 6.9 and platelet count of 14. Will repeat laboratory analysis, consult with hematology for transfusion needs.
08:55 -platelets are low at 13, from 14. Hemoglobin confirmed at 6.9. In discussion with hematology, recommending 1 unit of PRBCs, 1 bag of platelets. If remains stable status post transfusion, plan for outpatient oncologic follow-up. Patient
already has follow-up scheduled with Dr. Genao on 10/19.
14:00 -patient without any acute reaction after transfusion. Plan again for discharge with outpatient follow-up
*Critical Care Note
Total Time (30-74mins, 75-104mins- exclusive of procedures): Not Applicable
ED Attending Note
-
Portions of this chart may have been created with voice recognition software.� Occasional wrong word or��sound alike� substitutions may have occurred due to the inherent limitations of voice recognition software.
Discharge Plan
Departure
Patient with high blood pressure during this ER visit?: No
Condition: Good
Discharge Problem:
Pancytopenia, Encounter for blood transfusion
Prescriptions:
No Action
lisinopril 5 MG tablet
5 mg PO DAILY
acetaminophen [Tylenol] 325 mg Tablet
650 mg PO Q6HPRN PRN (Reason: mild pain)
psyllium Packet
1 packet PO DAILYPRN PRN (Reason: constipation)
cyanocobalamin (vitamin B-12) 1,000 mcg Tablet
1,000 mcg PO DAILY
therapeutic multivitamin Tablet
1 tab PO DAILY
fenofibrate micronized 134 mg Capsule
134 mg PO DAILY
ascorbic acid (vitamin C) [Vitamin C] 500 mg Tablet
500 mg PO DAILY
rosuvastatin [Crestor] 40 mg Tablet
40 mg PO QPM
cholecalciferol (vitamin D3) [Vitamin D3] 25 mcg (1,000 unit) Tablet
25 mcg PO DAILY
omega-3 fatty acids-fish oil 684-1,200 mg Capsule,Delayed Release(Dr/Ec)
1 cap PO TID
empagliflozin 25 mg Tablet
12.5 mg PO DAILY
EB-N5 DR 35 mg-3 mg- 2 mg-62.5 mcg Capsule,Delayed Release(Dr/Ec)
1 cap PO BID
Mounjaro 12.5 mg/0.5 mL Pen Injector
12.5 mg SC STEINBERG@2000
aspirin 81 MG tablet,chewable
81 mg PO DAILY
metoprolol succinate 25 MG tablet extended release 24 hr
25 mg PO DAILY
Referrals:
Paola Lucio MD [Family Provider, Family Practice]
Activity Restrictions/Additional Instructions:
You were seen in the emergency department for low platelets and anemia
You were transfused both blood and platelets. Please follow-up with your oncologist on 10/19 as scheduled.
Please follow-up closely with your primary care physician.
Return to the emergency department for any worsening of your symptoms, or any development of chest pain, difficulty breathing, abdominal pain with persistent vomiting and inability to tolerate food or liquid by mouth (concern for dehydration),
weakness, headache or confusion, fever greater than 100.4, or any additional symptoms that are concerning to you.
Thank you for choosing [facility].
Interventions
Interventions:
*Risk Screen - Suicide Last Done: 10/16/24 07:24
*General Assessment Last Done: 10/16/24 07:56
*Neglect/Abuse Screening Last Done: 10/16/24 07:24
*ED- Fall Risk Assessment Last Done: 10/16/24 07:56
Discharge Date and Time
Print Language: OCCITAN
[2024-10-16 08:23] LABS: ALT (SGPT) 17 U/L (0-50); AST (SGOT) 21 U/L (17-59); Albumin 3.9 g/dl (3.5-5.0); Alkaline Phosphatase 48 U/L (38-126); Blood Urea Nitrogen 18 mg/dl (9-20); Calcium 8.9 mg/dl (8.4-10.2); Carbon Dioxide 24 mmol/L (22-30); Chloride 109 mmol/L (98-107); Estimated Creatinine Clearance 91 ml/min; Glucose 103 mg/dl (70-99); Potassium 4.4 mmol/L (3.5-5.1); Sodium 137 mmol/L (135-145); Total Bilirubin 0.6 mg/dl (0.2-1.3); Total Protein 6.3 g/dl (6.3-8.2); eGFR > 60.00
[2024-10-16 08:43] LABS: Mean Corp Hgb Conc. 34.7 g/dL (33.0-37.0); Mean Corpuscular Hgb 36.9 pg (27.0-31.0); Mean Corpuscular Volume 106.4 fL (80.0-94.0); Red Blood Cell Count 1.87 10^6/uL (4.70-6.10); Red Cell Dist. Width 16.5 % (11.5-14.5)
[2024-10-16 10:49] LABS: % Eosinophils 0.7 % (0-6); % Lymphocytes 87.6 % (20.5-51.1); % Monocytes 2.1 % (1.7-9.3); Absolute Lymphocytes 1.3 10^3/uL (1.2-3.4); Nucleated Red Blood Cells % 0 % (-)
[2024-10-16 10:54] LABS: Hemoglobin 6.9 g/dL (13.0-18.0)
[2024-10-16 10:55] LABS: Hematocrit 19.9 % (39.0-52.0); White Blood Cell Count 1.5 10^3/uL (4.8-10.8)
[2024-10-16 10:56] LABS: Platelet Count 13 10^3/uL (130-400)
[2024-10-16 10:58] LABS: % Neutrophils 9.6 % (42.2-75.2); Absolute Neutrophils 0.1 10^3/uL (1.4-6.5)
== END 2024-10-16 14:01 | disposition home or self-care (01) ==
LOC: EMR 07:17
PROVIDERS: EMERGENCY PHYSICIAN Student in an Organized Health Care Education/Training Program; FAMILY PHYSICIAN Family Medicine
DX: D69.6 Thrombocytopenia, unspecified (principal); E11.9 Type 2 diabetes mellitus without complications; Z87.891 Personal history of nicotine dependence
CPT/HCPCS: 99285; 36430; 80053; 85025; 86850; 86900; 86901; 86920; P9058; P9073

== ENCOUNTER → 2024-10-19 09:46 | Outpatient (REF) | payer OTHER, SELFPAY ==
[2024-10-19 11:07] LABS: Hematocrit 25.2 % (39.0-52.0); Hemoglobin 8.8 g/dL (13.0-18.0); Mean Corp Hgb Conc. 34.9 g/dL (33.0-37.0); Mean Corpuscular Hgb 36.2 pg (27.0-31.0); Mean Corpuscular Volume 103.7 fL (80.0-94.0); Platelet Count 18 10^3/uL (130-400); Red Blood Cell Count 2.43 10^6/uL (4.70-6.10); Red Cell Dist. Width 18.6 % (11.5-14.5); White Blood Cell Count 2.1 10^3/uL (4.8-10.8)
[2024-10-19 13:01] LABS: % Eosinophils 0.5 % (0-6); % Immature Granulocytes 0.5 % (0-0.5); % Lymphocytes 88.2 % (20.5-51.1); % Monocytes 2.4 % (1.7-9.3); % Neutrophils 8.4 % (42.2-75.2); Absolute Lymphocytes 1.9 10^3/uL (1.2-3.4); Absolute Monocytes 0.1 10^3/uL (0.1-0.6); Absolute Neutrophils 0.2 10^3/uL (1.4-6.5); Nucleated Red Blood Cells % 0 % (-)
== END ==
LOC: REG 09:46
PROVIDERS: ATTENDING PHYSICIAN Internal Medicine Hematology & Oncology; FAMILY PHYSICIAN Family Medicine
DX: D61.818 Other pancytopenia (principal)
CPT/HCPCS: 36415; 85025; 86850; 86900; 86901; 86920

== ENCOUNTER 2024-10-21 09:46 | Outpatient (RCR) | payer OTHER, SELFPAY ==
[2024-10-21 10:46] VITALS: BP 85/50
[2024-10-21 11:06] VITALS: BP 116/46
[2024-10-21 11:59] VITALS: BP 114/58
== END 2024-11-02 23:59 | disposition home or self-care (01) ==
LOC: OID 09:46
PROVIDERS: ATTENDING PHYSICIAN Internal Medicine Hematology & Oncology; FAMILY PHYSICIAN Family Medicine
DX: D61.818 Other pancytopenia (principal); D69.6 Thrombocytopenia, unspecified; D70.9 Neutropenia, unspecified; D53.9 Nutritional anemia, unspecified
CPT/HCPCS: 36430; P9073

== ENCOUNTER → 2024-10-26 12:57 | Outpatient (REF) | payer OTHER, SELFPAY ==
[2024-10-26 13:52] LABS: Absolute Neutrophils 0.2 10^3/uL (1.4-6.5); Hematocrit 22.6 % (39.0-52.0); Hemoglobin 7.8 g/dL (13.0-18.0); Mean Corp Hgb Conc. 34.5 g/dL (33.0-37.0); Mean Corpuscular Hgb 35.3 pg (27.0-31.0); Mean Corpuscular Volume 102.3 fL (80.0-94.0); Platelet Count 13 10^3/uL (130-400); Red Blood Cell Count 2.21 10^6/uL (4.70-6.10); Red Cell Dist. Width 18.2 % (11.5-14.5); White Blood Cell Count 1.6 10^3/uL (4.8-10.8)
[2024-10-26 14:07] LABS: % Eosinophils 0.6 % (0-6); % Immature Granulocytes 0.6 % (0-0.5); % Lymphocytes 87.1 % (20.5-51.1); % Monocytes 1.8 % (1.7-9.3); % Neutrophils 9.9 % (42.2-75.2); Absolute Lymphocytes 1.4 10^3/uL (1.2-3.4); Nucleated Red Blood Cells % 0 % (-)
== END ==
LOC: REG 12:57
PROVIDERS: ATTENDING PHYSICIAN Internal Medicine Hematology & Oncology; FAMILY PHYSICIAN Family Medicine
DX: D61.818 Other pancytopenia (principal)
CPT/HCPCS: 36415; 85025; 86850; 86900; 86901

== ENCOUNTER → 2024-10-29 12:21 | Outpatient (REF) | payer OTHER, SELFPAY ==
[2024-10-29 14:25] LABS: % Lymphocytes 89.7 % (20.5-51.1); % Monocytes 1.9 % (1.7-9.3); % Neutrophils 8.4 % (42.2-75.2); Absolute Lymphocytes 1.9 10^3/uL (1.2-3.4); Absolute Neutrophils 0.2 10^3/uL (1.4-6.5); Hematocrit 24.2 % (39.0-52.0); Hemoglobin 8.3 g/dL (13.0-18.0); Mean Corp Hgb Conc. 34.3 g/dL (33.0-37.0); Mean Corpuscular Hgb 35.6 pg (27.0-31.0); Mean Corpuscular Volume 103.9 fL (80.0-94.0); Nucleated Red Blood Cells % 0 % (-); Platelet Count 13 10^3/uL (130-400); Red Blood Cell Count 2.33 10^6/uL (4.70-6.10); Red Cell Dist. Width 18.4 % (11.5-14.5); White Blood Cell Count 2.1 10^3/uL (4.8-10.8)
[2024-10-29 15:10] LABS: ALT (SGPT) 13 U/L (0-50); AST (SGOT) 19 U/L (17-59); Albumin 4.6 g/dl (3.5-5.0); Alkaline Phosphatase 48 U/L (38-126); Blood Urea Nitrogen 19 mg/dl (9-20); Calcium 9.6 mg/dl (8.4-10.2); Carbon Dioxide 23 mmol/L (22-30); Chloride 107 mmol/L (98-107); Glucose 95 mg/dl (70-99); Phosphorus 3.1 mg/dl (2.5-4.5); Potassium 4.4 mmol/L (3.5-5.1); Sodium 138 mmol/L (135-145); Total Bilirubin 0.6 mg/dl (0.2-1.3); Total Protein 7.1 g/dl (6.3-8.2); Uric Acid 2.8 mg/dl (3.5-8.5); eGFR > 60.00
== END ==
LOC: REG 12:21
PROVIDERS: ATTENDING PHYSICIAN Internal Medicine Hematology & Oncology; FAMILY PHYSICIAN Family Medicine
DX: D61.818 Other pancytopenia (principal); D69.6 Thrombocytopenia, unspecified; D70.9 Neutropenia, unspecified; D53.9 Nutritional anemia, unspecified; C92.Z0 Other myeloid leukemia not having achieved remission
CPT/HCPCS: 36415; 80053; 84100; 84550; 85025; 86850; 86900; 86901

== ENCOUNTER → 2024-11-12 11:14 | Outpatient (REF) | payer OTHER, SELFPAY ==
[2024-11-12 12:30] LABS: ALT (SGPT) 12 U/L (0-50); AST (SGOT) 20 U/L (17-59); Albumin 4.1 g/dl (3.5-5.0); Alkaline Phosphatase 71 U/L (38-126); Blood Urea Nitrogen 20 mg/dl (9-20); Calcium 8.7 mg/dl (8.4-10.2); Carbon Dioxide 24 mmol/L (22-30); Chloride 108 mmol/L (98-107); Glucose 107 mg/dl (70-99); Potassium 4.0 mmol/L (3.5-5.1); Sodium 138 mmol/L (135-145); Total Protein 6.5 g/dl (6.3-8.2); Uric Acid 2.3 mg/dl (3.5-8.5); eGFR > 60.00
[2024-11-12 12:34] LABS: Hematocrit 24.7 % (39.0-52.0); Hemoglobin 8.7 g/dL (13.0-18.0); Mean Corp Hgb Conc. 35.2 g/dL (33.0-37.0); Mean Corpuscular Volume 99.6 fL (80.0-94.0); Nucleated Red Blood Cells % 0 % (-); Platelet Count 5 10^3/uL (130-400); Red Cell Dist. Width 19.8 % (11.5-14.5)
== END ==
LOC: REG 11:14
PROVIDERS: ATTENDING PHYSICIAN Internal Medicine Hematology & Oncology; FAMILY PHYSICIAN Family Medicine
DX: D61.818 Other pancytopenia (principal); D69.6 Thrombocytopenia, unspecified; D70.9 Neutropenia, unspecified; D53.9 Nutritional anemia, unspecified; C92.Z0 Other myeloid leukemia not having achieved remission
CPT/HCPCS: 36415; 80053; 84100; 84550; 85025; 86850; 86900; 86901

== ENCOUNTER → 2024-11-30 06:46 | Outpatient (REF) | payer OTHER, SELFPAY ==
[2024-11-30 07:20] LABS: INR 1.13; PT 15.1 Sec (11.4-14.6)
[2024-11-30 07:29] LABS: Hematocrit 26.6 % (39.0-52.0); Hemoglobin 9.2 g/dL (13.0-18.0); Mean Corp Hgb Conc. 34.6 g/dL (33.0-37.0); Mean Corpuscular Volume 96.0 fL (80.0-94.0); Red Cell Dist. Width 16.5 % (11.5-14.5)
[2024-11-30 07:34] LABS: Nucleated Red Blood Cells % 0 % (-)
[2024-11-30 07:40] LABS: Platelet Count 3 10^3/uL (130-400)
[2024-11-30 07:50] VITALS: BP 130/74; BP_SYST 89
[2024-11-30] MEDS: ATIVAN 0.5 MG PO (07:53)
[2024-11-30 09:15] VITALS: BP 121/67; BP 125/70; BP_SYST 95
== END ==
LOC: RADI 06:46
PROVIDERS: ATTENDING PHYSICIAN Internal Medicine Hematology & Oncology; FAMILY PHYSICIAN Family Medicine
DX: C92.00 Acute myeloblastic leukemia, not having achieved remission (principal); D69.6 Thrombocytopenia, unspecified; D68.8 Other specified coagulation defects; D61.818 Other pancytopenia
CPT/HCPCS: 36415; 38222; 77012; 85025; 85610; 86850; 86900; 86901; 88184; 88185; 88237; 88305; 88311; 88312; 88313; 88341; 88342

== ENCOUNTER 2024-12-02 08:03 | Outpatient (RCR) | payer OTHER, SELFPAY ==
[2024-11-05 10:11] LABS: Hematocrit 22.1 % (39.0-52.0); Hemoglobin 7.6 g/dL (13.0-18.0); Mean Corp Hgb Conc. 34.4 g/dL (33.0-37.0); Mean Corpuscular Volume 105.2 fL (80.0-94.0); Red Cell Dist. Width 18.5 % (11.5-14.5)
[2024-11-05 10:20] LABS: Platelet Count 25 10^3/uL (130-400)
[2024-11-09 12:33] LABS: Hematocrit 19.2 % (39.0-52.0); Hemoglobin 6.8 g/dL (13.0-18.0); Mean Corp Hgb Conc. 35.4 g/dL (33.0-37.0); Mean Corpuscular Volume 104.9 fL (80.0-94.0); Red Cell Dist. Width 17.9 % (11.5-14.5)
[2024-11-09 13:09] LABS: Nucleated Red Blood Cells % 0 % (-); Platelet Count 9 10^3/uL (130-400)
[2024-11-11] VITALS (7 sets, daily range): BP systolic 93–122; BP diastolic 46–68
[2024-11-11] MEDS: TYLENOL 650 MG PO (09:24)
[2024-11-13] MEDS: TYLENOL 650 MG PO (13:30)
[2024-11-13 13:36] VITALS: BP 125/50
[2024-11-13 13:54] VITALS: BP 107/59
[2024-11-13 14:38] VITALS: BP 114/57
[2024-11-16 14:17] LABS: Hematocrit 23.2 % (39.0-52.0); Hemoglobin 8.2 g/dL (13.0-18.0); Mean Corp Hgb Conc. 35.3 g/dL (33.0-37.0); Mean Corpuscular Volume 99.6 fL (80.0-94.0); Red Cell Dist. Width 17.7 % (11.5-14.5)
[2024-11-16 14:36] LABS: Nucleated Red Blood Cells % 0 % (-); Platelet Count 9 10^3/uL (130-400)
[2024-11-17 11:51] VITALS: BP 116/65
[2024-11-17 12:09] VITALS: BP 118/65
[2024-11-17 12:57] VITALS: BP 107/55
[2024-11-19 13:55] LABS: Hematocrit 19.8 % (39.0-52.0); Hemoglobin 6.9 g/dL (13.0-18.0); Mean Corp Hgb Conc. 34.8 g/dL (33.0-37.0); Mean Corpuscular Volume 101.5 fL (80.0-94.0); Platelet Count 10 10^3/uL (130-400); Red Cell Dist. Width 17.9 % (11.5-14.5)
[2024-11-20] VITALS (9 sets, daily range): BP systolic 97–112; BP diastolic 38–62
[2024-11-20] MEDS: TYLENOL 650 MG PO (09:49)
[2024-11-20] MEDS: BENADRYL 25 MG PO (09:49)
[2024-11-23 14:51] LABS: Hematocrit 25.5 % (39.0-52.0); Hemoglobin 9.1 g/dL (13.0-18.0); Mean Corp Hgb Conc. 35.7 g/dL (33.0-37.0); Mean Corpuscular Volume 95.1 fL (80.0-94.0); Red Cell Dist. Width 17.1 % (11.5-14.5)
[2024-11-23 15:02] LABS: ALT (SGPT) 19 U/L (0-50); AST (SGOT) 23 U/L (17-59); Albumin 3.4 g/dl (3.5-5.0); Alkaline Phosphatase 53 U/L (38-126); Blood Urea Nitrogen 14 mg/dl (9-20); Calcium 8.4 mg/dl (8.4-10.2); Carbon Dioxide 22 mmol/L (22-30); Chloride 105 mmol/L (98-107); Glucose 137 mg/dl (70-99); Potassium 3.5 mmol/L (3.5-5.1); Sodium 135 mmol/L (135-145); Total Protein 5.9 g/dl (6.3-8.2); Uric Acid 2.1 mg/dl (3.5-8.5); eGFR > 60.00
[2024-11-23 15:31] LABS: Nucleated Red Blood Cells % 0 % (-); Platelet Count 7 10^3/uL (130-400)
[2024-11-24] MEDS: TYLENOL 650 MG PO (09:47)
[2024-11-24 09:48] VITALS: BP 110/84
[2024-11-24 10:06] VITALS: BP 109/53
[2024-11-24 10:45] VITALS: BP 122/54
[2024-11-24 10:58] VITALS: BP 122/54
[2024-11-24 11:15] VITALS: BP 125/57
[2024-11-24 12:01] VITALS: BP 119/44
[2024-11-26 15:35] LABS: Hematocrit 24.7 % (39.0-52.0); Hemoglobin 9.0 g/dL (13.0-18.0); Mean Corp Hgb Conc. 36.4 g/dL (33.0-37.0); Mean Corpuscular Volume 93.2 fL (80.0-94.0); Nucleated Red Blood Cells % 2.9 % (-); Platelet Count 9 10^3/uL (130-400); Red Cell Dist. Width 16.6 % (11.5-14.5)
[2024-11-27] MEDS: TYLENOL 650 MG PO (09:09)
[2024-11-27 09:16] VITALS: BP 106/61
[2024-11-27 09:31] VITALS: BP 108/56
[2024-11-27 10:24] VITALS: BP 99/44
--- NOTE | 2024-11-27 14:52 | PTCARENOTE ---
Addendum entered by Yudi Mercer RN 11/27/24 15:25:
1210- [place] text received from Alejandra Gutierrez SQL [employer] DEVELOPER, pt given script for Dexamethasone mouthwash, to hold Venetoclax. Will also receive Platelet transfusion and IV hydration on Saturday11/30/24 after Bone marrow biopsy.
Original Note:
1030- Pt has significant mouth ulcers despite using 'magic mouth wash' and antibiotic course. pt complains of difficulty swallowing 'even water' .[place] text sent to Dr. Genao ands Alejandra Gutierrez SQL [employer] DEVELOPER 1050 Pt completed platelet transfusion, will be
seen today.by SQL [employer] DEVELOPER at [facility].
[2024-11-30 10:00] VITALS: BP 128/72
[2024-11-30 10:32] VITALS: BP 128/72
[2024-11-30 10:51] VITALS: BP 122/65
[2024-11-30 11:21] VITALS: BP 120/58
[2024-11-30] MEDS: NSS 500 IV (11:25)
[2024-12-02 08:55] VITALS: BP 131/61
[2024-12-02 09:04] VITALS: BP 131/61
[2024-12-02] MEDS: TYLENOL 650 MG PO (09:16)
[2024-12-02 09:26] VITALS: BP 132/59
[2024-12-02 10:21] VITALS: BP 107/56
[2024-12-02 10:26] LABS: Hematocrit 22.2 % (39.0-52.0); Hemoglobin 8.0 g/dL (13.0-18.0); Mean Corp Hgb Conc. 36.0 g/dL (33.0-37.0); Mean Corpuscular Volume 92.5 fL (80.0-94.0); Nucleated Red Blood Cells % 3.3 % (-); Platelet Count 5 10^3/uL (130-400); Red Cell Dist. Width 16.1 % (11.5-14.5)
== END 2024-12-03 07:48 | disposition home or self-care (01) ==
LOC: OID 08:03
PROVIDERS: ATTENDING PHYSICIAN Internal Medicine Hematology & Oncology; FAMILY PHYSICIAN Family Medicine
DX: D61.818 Other pancytopenia (principal); D69.6 Thrombocytopenia, unspecified; D70.9 Neutropenia, unspecified; D53.9 Nutritional anemia, unspecified
CPT/HCPCS: 36415; 36430; 38222; 77012; 80053; 81003; 81015; 82525; 84550; 85025; 85610; 86850; 86900; 86901; 86920; 88305; 88311; 88312; 88313; 96360; P9058; P9073

== ENCOUNTER 2024-12-04 01:44 | Inpatient (IN) | payer OTHER, SELFPAY ==
[2024-12-03 22:39] VITALS: BP 99/56
[2024-12-03 22:43] VITALS: BMI 29.5
[2024-12-03 22:56] VITALS: BP 107/56
[2024-12-03 23:00] VITALS: BP 113/70
[2024-12-03 23:13] LABS: ALT (SGPT) 25 U/L (0-50); AST (SGOT) 34 U/L (17-59); Albumin 3.0 g/dl (3.5-5.0); Alkaline Phosphatase 51 U/L (38-126); Blood Urea Nitrogen 20 mg/dl (9-20); Calcium 8.4 mg/dl (8.4-10.2); Carbon Dioxide 21 mmol/L (22-30); Chloride 104 mmol/L (98-107); Estimated Creatinine Clearance 95 ml/min; Glucose 98 mg/dl (70-99); Potassium 3.3 mmol/L (3.5-5.1); Sodium 131 mmol/L (135-145); Total Protein 5.5 g/dl (6.3-8.2); eGFR > 60.00
[2024-12-03 23:15] VITALS: BP 111/57
[2024-12-03 23:20] LABS: Hematocrit 19.4 % (39.0-52.0); Hemoglobin 7.1 g/dL (13.0-18.0); Mean Corp Hgb Conc. 36.6 g/dL (33.0-37.0); Mean Corpuscular Volume 92.4 fL (80.0-94.0); Nucleated Red Blood Cells % 0 % (-); Platelet Count 5 10^3/uL (130-400); Red Cell Dist. Width 16.4 % (11.5-14.5)
--- NOTE | 2024-12-03 23:30 | ED.GENMED ---
History of Present Illness
General
Chief Complaint: Weakness
Time Seen by Provider: 12/03/24 22:58
History of Present Illness
History of Present Illness:
74-year-old male with history of leukemia, diabetes, hypertension presenting for generalized weakness. Prior to arrival, patient notes that he slid out of his chair and was unable to get up because he was feeling so weak. Notes that earlier today
he felt fine, somewhat weak, however was able to go bowling. Denies specific symptoms. Denies recent fever or illness. Denies chest pain, difficulty breathing, cough, abdominal pain or vomiting. Did have some diarrhea a few days ago which has
since resolved. Denies any sick contacts. With patient's labs chair, denies any injury, denies any injury. Does report that he frequently requires transfusions. He follows with [facility]. He is currently getting Dacogen and Venclexta,
however treatment has been stopped due to side effect of mouth sores. No additional symptoms reported at this time
Past History
Past History
ED Past Medical History: Hypercholesterolemia, NIDDM, [place] and Other (Diverticulitis)
ED Past Surgical History: Cardiac (Stent X1)
Social History
Tobacco: Former smoker
Alcohol: None
Personal:
Living: with family
Phy Exam
Physical Exam
Physical Exam:
General: Well-appearing, no clinical signs of dehydration, nontoxic and in no acute distress
HEENT: protecting airway
Neck: appears supple
CV: Normal heart rate, regular rhythm
Resp: No accessory muscle use, no increased work of breathing, lungs clear to auscultation bilaterally
Abd: Soft and non-distended, no tenderness to palpation
Extremities: No deformities, no swelling
Neuro: alert, no focal neurologic deficit
: deferred
Rectal: deferred
Psych: Normal affect
Skin: Intact
Course
Orders/Labs/Results
Orders:
Orders
12/03/24 22:49
CBC/With Diff [Complete Blood Count/With Diff] Urgent
Comprehensive Metabolic Panel Urgent
12/03/24 23:27
COVID-19 Antigen Urgent
Source: Nasal Swab
Urinalysis Reflex To Culture Urgent
Influenza A+B Rapid Molecular Urgent
ANGIE Source: Nasal Swab
Specimen Description:
0.9% Sodium Chloride 1000 ml [Nss] 1,000 ml IV BOLUS
12/03/24 23:30
Lactic Acid Q4H
Comment: CANCEL 2nd LACTIC ACID IF 1st LACTIC ACID IS LESS THAN 2
Blood Culture Q30M
ANGIE Source: Blood/Venous
Specimen Description:
12/04/24 00:00
Blood Culture Q30M
ANGIE Source: Blood/Venous
Specimen Description:
12/04/24 03:30
Lactic Acid Q4H
Comment: CANCEL 2nd LACTIC ACID IF 1st LACTIC ACID IS LESS THAN 2
Abnormal Lab Results
12/03/24
22:49
WBC 0.5 L* 10^3/uL
(4.8-10.8)
RBC 2.10 L 10^6/uL
(4.70-6.10)
Hgb 7.1 L g/dL
(13.0-18.0)
Hct 19.4 L* %
(39.0-52.0)
MCH 33.8 H pg
(27.0-31.0)
RDW 16.4 H %
(11.5-14.5)
Plt Count 5 L* 10^3/uL
(130-400)
Absolute Neuts (auto) 0.1 L* 10^3/uL
(1.4-6.5)
Absolute Lymphs (auto) 0.4 L 10^3/uL
(1.2-3.4)
Absolute Monos (auto) 0.0 L 10^3/uL
(0.1-0.6)
Immature Gran % 2.0 H %
(0-0.5)
Neutrophils % 12.2 L %
(42.2-75.2)
Lymphocytes % 77.6 H %
(20.5-51.1)
Sodium 131 L mmol/L
(135-145)
Potassium 3.3 L mmol/L
(3.5-5.1)
Carbon Dioxide 21 L mmol/L
(22-30)
Creatinine 0.6 L mg/dL
(0.7-1.3)
Total Protein 5.5 L g/dl
(6.3-8.2)
Albumin 3.0 L g/dl
(3.5-5.0)
12/03/24 22:49
12/03/24 22:49
Vital Signs
Initial and Last Documented VS:
Initial Vital Signs
Temp Pulse Resp BP Pulse Ox
99.4 F 105 18 99/56 100
12/03/24 22:39 12/03/24 22:39 12/03/24 22:39 12/03/24 22:39 12/03/24 22:39
Last Documented Vital Signs
Temp Pulse Resp BP Pulse Ox
99.4 F 97 28 113/70 99
12/03/24 22:39 12/03/24 23:00 12/03/24 23:00 12/03/24 23:00 12/03/24 23:00
MDM/Problems Addressed
MDM/Problems Addressed:
74-year-old male with history of leukemia presenting for generalized weakness. Vital signs on arrival significant tachycardia and low-grade temperature.
On exam, patient resting comfortably, no specific complaints. Reports that he is just feeling generally weak. Denies any fevers or recent illness. Patient nontoxic in appearance. No focal neurologic deficits. Suspect that symptoms can be
secondary to underlying leukemia, likely low blood counts. Will send CBC and chemistry panel. However patient does also have a low-grade temperature, tachycardic. Infectious etiology is also consideration. Will send blood cultures, lactic acid,
urinalysis, COVID and flu. Will start patient on IV fluids.
Patient with rectal temp of __. Labs show neutropenia. This time concern for neutropenic fever. Will require broad-spectrum antibiotics. Platelet count is also low which does not appear to be far from his baseline. Will transfuse 1 bag. Plan
for admission for oncologic evaluation and consultation.
*Pulse Oximetry
SaO2: 99
Oxygen Mode of Delivery: Room air
Patient hypoxic: no
*Critical Care Note
Total Time (30-74mins, 75-104mins- exclusive of procedures): Not Applicable
ED Attending Note
-
Portions of this chart may have been created with voice recognition software.� Occasional wrong word or��sound alike� substitutions may have occurred due to the inherent limitations of voice recognition software.
Discharge Plan
Departure
Prescriptions:
No Action
acetaminophen [Tylenol] 325 mg Tablet
650 mg PO Q6HPRN PRN (Reason: mild pain)
psyllium Packet
1 packet PO DAILYPRN PRN (Reason: constipation)
cyanocobalamin (vitamin B-12) 1,000 mcg Tablet
1,000 mcg PO WEEKLY
therapeutic multivitamin Tablet
1 tab PO DAILY
fenofibrate micronized 134 mg Capsule
134 mg PO DAILY
ascorbic acid (vitamin C) [Vitamin C] 500 mg Tablet
500 mg PO DAILY
rosuvastatin [Crestor] 40 mg Tablet
40 mg PO QPM
cholecalciferol (vitamin D3) [Vitamin D3] 25 mcg (1,000 unit) Tablet
25 mcg PO DAILY
omega-3 fatty acids-fish oil 684-1,200 mg Capsule,Delayed Release(Dr/Ec)
1 cap PO TID
empagliflozin 25 mg Tablet
12.5 mg PO DAILY
EB-N5 DR 35 mg-3 mg- 2 mg-62.5 mcg Capsule,Delayed Release(Dr/Ec)
1 cap PO BID
Mounjaro 12.5 mg/0.5 mL Pen Injector
12.5 mg SC STEINBERG@2000
metoprolol succinate 25 MG tablet extended release 24 hr
25 mg PO DAILY
levofloxacin 250 mg Tablet
50 mg PO DAILY
prochlorperazine maleate 10 mg Tablet
10 mg PO Q8H PRN (Reason: nausea)
acyclovir 400 mg Tablet
400 mg PO BID
ondansetron 8 mg Tablet,Disintegrating
8 mg PO Q8H PRN (Reason: nausea)
voriconazole 200 mg Tablet
200 mg PO Q12H
Venclexta 100 mg Tablet
200 mg PO DAILY
Referrals:
Paola Lucio MD [Family Provider, Family Practice]
Interventions
Interventions:
*Risk Screen - Suicide Last Done: 12/03/24 22:43
*General Assessment Last Done: 12/03/24 22:43
*Neglect/Abuse Screening Last Done: 12/03/24 22:43
*ED- Fall Risk Assessment Last Done: 12/03/24 22:48
*ED COVID-19 Vaccine History Last Done: 12/03/24 22:48
ED- Cardiac Assessment Last Done: 12/03/24 23:00
ED- Neurological Assessment Last Done: 12/03/24 23:00
ED- Pulmonary Assessment Last Done: 12/03/24 23:00
Discharge Date and Time
Print Language: YAKUT
[2024-12-03 23:45] VITALS: BP 121/47
[2024-12-03] MEDS: NSS 1000 IV (23:55)
[2024-12-04] VITALS (15 sets, daily range): BP systolic 97–147; BP diastolic 51–86; BMI 29.5; BMI 29.1
[2024-12-04 00:23] LABS: COVID-19 Antigen Negative (Negative)
[2024-12-04] MEDS: MAXIPIME 2000 MG IV ×4 (00:40→23:11)
[2024-12-04] MEDS: TYLENOL 650 MG PO ×2 (00:40→18:28)
--- NOTE | 2024-12-04 01:15 | HPS.HSE ---
Family Physician
-
Family Physician: Paola Lucio
Chief Complaint
-
Fever
History of Present Illness
This is a 74-year-old with past medical history of CAD, AML on infusions, history of pancytopenia requiring recent transfusions who presents to the emergency department because he was feeling weak.
Patient noted that he slid out of his chair today and was unable to get up due to feeling weak. He had otherwise been fine earlier in the day and was able to go out to do some bowling. Patient denies having any headache. He denies any nausea or
vomiting. He denies any diarrhea. Denies having any difficulty breathing cough neck stiffness rash joint swelling or tenderness. He takes Dacogen and Venclexta infusions although treatment has been on hold due to mouth sores. He is on acyclovir.
He denies any other symptoms. He denies any known sick contacts. He is no longer taking the Venclexta. He continues on levofloxacin, acyclovir and voriconazole.
In the emergency department he had a temp of 100.3, blood pressure was 120/70 pulse of 91 and he was satting 93% on room air. Chest x-ray shows no acute infiltrate. ECG showed a sinus rhythm at a rate of 95 with a right bundle similar to prior.
He has leukopenia to 0.5 hemoglobin of 7.1 epilated of 5. Absolute neutrophil count less than 100. His electrolytes notable for a sodium of 131 and a potassium of 3.3 otherwise BUN and creatinine were normal. COVID test was negative. UA pending.
Medical History
Past Medical History
Past Medical History: Reports Other
Additional Past Medical History:
CAD
DM
HLD
HTN
Past Surgical History: Reports Other
Additional Past Surgical History:
cardiac stent
Social History
Tobacco: Former Smoker
Alcohol: None
Drug: None
Personal:
Living: With Family
Family History
Family History: Not pertinent
Allergies / Home Medications
Allergies reflects when Allergies were last updated in [employer].
Home Medications with original date entered in [employer]
Allergy/Medication List:
Allergies
Allergy/AdvReac Type Severity Reaction Status Date / Time
amoxicillin Allergy Unknown Verified 08/29/18 11:22
sulfamethoxazole (From Allergy Unknown Verified 08/29/18 11:22
Septra)
trimethoprim (From Septra) Allergy Unknown Verified 08/29/18 11:22
Home Medications
lisinopril 5 mg tablet 5 mg PO DAILY 05/26/18
aspirin 81 mg chewable tablet 81 mg PO DAILY 05/27/18
metoprolol succinate 25 mg tablet,extended release 24 hr 25 mg PO DAILY ##90 05/27/18
B6 35 mg-B9 3 mg-B12 2 mg-D3 62.5 mcg-ALA 300 mg capsule,delay release (EB-N5 DR) 1 cap PO BID 10/08/24
acetaminophen 325 mg tablet (Tylenol) 650 mg PO Q6HPRN PRN mild pain 10/08/24
ascorbic acid (vitamin C) 500 mg tablet (Vitamin C) 500 mg PO DAILY 10/08/24
cholecalciferol (vitamin D3) 25 mcg (1,000 unit) tablet (Vitamin D3) 25 mcg PO DAILY 10/08/24
cyanocobalamin (vitamin B-12) 1,000 mcg tablet 1,000 mcg PO DAILY 10/08/24
empagliflozin 25 mg tablet 12.5 mg PO DAILY 10/08/24
fenofibrate micronized 134 mg capsule 134 mg PO DAILY 10/08/24
omega-3 fatty acids-fish oil 684 mg-1,200 mg capsule,delayed release 1 cap PO TID 10/08/24
psyllium 1 packet PO DAILYPRN PRN constipation 10/08/24
rosuvastatin 40 mg tablet (Crestor) 40 mg PO QPM 10/08/24
therapeutic multivitamin 1 tab PO DAILY 10/08/24
tirzepatide 12.5 mg/0.5 mL subcutaneous pen injector (Mounjaro) 12.5 mg SC STEINBERG@199910/08/24
Review of Systems
-
Constitutional: Reports Fever and Fatigue
EENT: Reports No Symptoms
Respiratory: Reports No Symptoms
Cardiac: Reports No Symptoms
Abdomen/GI: Reports No Symptoms
: Reports No Symptoms
Musculoskeletal: Reports No Symptoms
Skin: Reports No Symptoms
Neurological: Reports No Symptoms
Endocrine: Reports No Symptoms
Hematologic/Lymphatic: Reports No Symptoms
Psych: Reports No Symptoms
Physical Exam
Vital Signs
Vital Signs
Temp Pulse Resp BP Pulse Ox
100.3 F 91 19 121/47 65
12/04/24 00:31 12/04/24 00:30 12/04/24 00:30 12/03/24 23:45 12/04/24 00:30
Physical Exam
General: Well Developed, Well Nourished and No Apparent Distress
HEENT: NormoCephalic, Moist mucous membranes and Atraumatic
Respiratory: Clear
Cardiac: S1/S2 and Regular Rhythm; No Murmur or Rub
GI: Soft, Non Tender, Non Distended and Normal Bowel Sounds; No Organomegaly
Rectal: Deferred by Provider
Musculoskeletal: No Clubbing, No Cyanosis and No Edema
Skin: No Rash
Neuro: AO x 3 and Nonfocal/grossly intact
Psych: Calm
Laboratory Results
-
12/03/24 22:49
12/03/24 22:49
Laboratory Results
Lactic Acid 1.0 mmol/L (0.7-2.0) 12/03/24 23:57
Total Bilirubin 0.9 mg/dl (0.2-1.3) 12/03/24 22:49
AST 34 U/L (17-59) 12/03/24 22:49
ALT 25 U/L (0-50) 12/03/24 22:49
Alkaline Phosphatase 51 U/L (38-126) 12/03/24 22:49
Data Reviewed
-
Diagnostic Radiology: Image Personally Visualized and interpreted
Medical Tests (Nuc Med, Echo, EKG etc): Image Personally Visualized and interpreted
Lab Data: Labs Reviewed by me
Old Records: Reviewed
Impression/Plan
-
IMPRESSION:
74-year-old male with past medical history significant for AML and history of recurrent pancytopenia on weekly infusions who presents to the emergency department with weakness and a low-grade temp 200.3 in the emergency department. He is
neutropenic and also thrombocytopenic. Hemoglobin is around his baseline of 7.1. He has no bleeding diatheses and shows no evidence of acute mucosal bleed.
PLAN:
Neutropenic fever -no sepsis, no urinary or respiratory source
- Admit to [facility]
- Blood culture sent
- no hx of mrsa or pseudomonas, IV cefepime for now
- mrsa swab
- u/a reflex cx pending
Pancytopenia -recurrent pancytopenia, history of AML on infusions and prophylaxis
- Transfuse 1 unit of packed red blood cells per ED
- Transfuse 1 unit of platelets
- Continue prophylactic acyclovir
- Continue prophylactic voriconazole
- Oncology consultation
Diabetes
- Sliding scale insulin for now
JERRY
-CPAP at bedtime
CAD/hypertension
-hold aspirin, continue statin and fenofibrate
-Continue metoprolol
-Patient lisinopril on hold
DVT prophylaxis�SCDs
CODE STATUS�full code
--- NOTE | 2024-12-04 02:24 | EDRN ---
Med Rec: Patient unsure of what medications he takes at home. He reports 'my will know'. will be back at bedside in the morning per patient. Unable to perform med rec at this time.
[2024-12-04] MEDS: KCL 40 MEQ PO (03:01)
[2024-12-04 05:09] LABS: Urine Character Clear (Clear)
[2024-12-04 05:35] LABS: Urine White Cell 0-2 /HPF (0-5)
[2024-12-04 07:01] LABS: Hematocrit 20.7 % (39.0-52.0); Hemoglobin 7.3 g/dL (13.0-18.0); Mean Corp Hgb Conc. 35.3 g/dL (33.0-37.0); Mean Corpuscular Volume 91.2 fL (80.0-94.0); Platelet Count 14 10^3/uL (130-400); Red Cell Dist. Width 16.3 % (11.5-14.5)
[2024-12-04 08:15] LABS: Glucose - Point of Care 91 mg/dl (70-99)
[2024-12-04 08:57] LABS: Blood Urea Nitrogen 16 mg/dl (9-20); Calcium 7.9 mg/dl (8.4-10.2); Carbon Dioxide 21 mmol/L (22-30); Chloride 108 mmol/L (98-107); Estimated Creatinine Clearance 95 ml/min; Glucose 83 mg/dl (70-99); Magnesium 1.9 mg/dl (1.6-2.3); Potassium 3.6 mmol/L (3.5-5.1); Sodium 134 mmol/L (135-145); eGFR > 60.00
[2024-12-04] MEDS: TOPROL XL 25 MG PO (09:38)
[2024-12-04] MEDS: ZOVIRAX 400 MG PO ×2 (09:40→20:49)
[2024-12-04] MEDS: VFEND 200 MG PO ×2 (09:40→20:50)
[2024-12-04] MEDS: VITAMIN B-12 1000 MCG PO (09:40)
[2024-12-04] MEDS: TRICOR 145 MG PO (09:40)
[2024-12-04 12:12] LABS: Glucose - Point of Care 93 mg/dl (70-99)
--- NOTE | 2024-12-04 12:51 | W.PN.HOSP.TC ---
Addendum entered and electronically signed by Blake Juarez MD 12/05/24 12:04:
see update note
Original Note:
Today's Communication/Plan
-
c/w iv ABX
magic mouthwash
await blood cx
appreciate ID/Heme Onc
Assessment / Plan
Assessment / Plan
74 yo M with a pmhx of AML (on chemotherapy Dacogen, last dose 11/05, follows Dr. Genao, does not recall any GCSF dosing), CAD, Hyperlipidemia, NIDDM, Chronic Back pain who presented for one day history of fatigue/weakness with mechanical fall when
getting up a from a chair
#Leukopenia
#Neutropenia
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
- WBC 0.5 on admission, ANC 100; patient does not meet SIRS criteria
- op PPX with acyclovir, voriconazole, levofloxacin
- continue Acyclovir/Voriconazole
- hold Levofloxacin while on cefepime
- UA unremarkable
- MRSA screen pending
- Blood Cx taken, results pending
- started on IV Cefepime
- ID consulted for further medication management
#Mucocutaneous Stomatitis
- magic mouthwash
- ID following; appreciate recs
#Mechanical Fall, most likely secondary to ambulatory dysfunction vs. cardiovascular
- patient reports muscle weakness when getting out of chair
- no loc, palpitations, or cardiovascular sx surrounding event
#Pancytopenia
- hgb 7.1 on admission, plts 5
- given 1U leuko-irradiated PRBCs and 1U plts -- hgb 7.3, plts 15 post transfusion
- transfuse to keep hgb >7 and plts >20,000 or >50,000 if active bleed
- trend CBC
- heme onc consulted, ? benefit from GCSF
#AML
Recent BM biopsy on 11/[address] Genao, results pending
- heme onc following
#CAD
#Hyperlipidemia
- c/w rosuvastatin, fenofibrate
- c/w Metoprolol
#NIDDM
- hold empagliflozin
- diabetic diet
- monitor glucose
#Chronic Back Pain
- c/w tramadol
DVT PPx: SCDs
Code Status: Full Code
Anticipated Discharge: 24 - 48 hours
Subjective/Interval History
-
Date of Service: December 04, 2024
He is complaining of pain/soreness in his mouth associated with a chronic ulceration/thrush. He has no fevers, chills, sob, cp, cough, n/v/d, abd pain, urinary sx or neuromuscular symptoms.
Objective Data
-
Labs:
Laboratory Results
12/04/24 12/04/24
06:34 08:18
WBC 0.6 L*
Hgb 7.3 L
Hct 20.7 L*
Plt Count 14 L* D
Sodium Pending 134 L
Potassium Pending 3.6
Chloride Pending 108 H
Carbon Dioxide Pending 21 L
BUN Pending 16
Creatinine Pending 0.5 L
Glucose Pending 83
Calcium Pending 7.9 L
Vital Signs:
Vital Signs
Temp Pulse Resp BP Pulse Ox
98.1 F 91 21 117/57 98
12/04/24 10:40 12/04/24 09:38 12/04/24 06:00 12/04/24 09:38 12/04/24 10:43
I&O
12/03/24 12/04/24 12/05/24
06:59 06:59 06:59
Intake Total 261 / 261
Balance 261 / 261
Review of Systems
-
History Source: Patient
All other systems: Reviewed and negative
Constitutional: Reports No Symptoms
EENT: Reports Mouth Pain (ulceration in the mouth and pain)
Respiratory: Reports No Symptoms
Cardiac: Reports No Symptoms
Abdomen/GI: Reports No Symptoms
Genitourinary: Reports No Symptoms
Musculoskeletal: Reports No Symptoms
Skin: Reports No Symptoms
Neuro: Reports No Symptoms
Hematologic / Lymphatic: Reports No Symptoms
Allergy / Immunology: Reports No Symptoms
Physical Exam
-
General: Well Developed, Well Nourished, No Apparent Distress and Comfortable
HEENT: Normocephalic, Atraumatic, Moist Mucous Membranes, Thrush, Anicteric, [place] Conjunctivae, No Ptosis, PERRLA, Nose Appears Normal, Ears Appear Normal and Other (0.5cm ulcerated lesion in the Left mouth crease involving the mucous membrane, with
a black center, and surrounding erythema/swelling. Thick, mucopurulent seeming yellow discharge on the tongue. Poor dentition.)
Respiratory: Clear to Auscultation and Non Labored Respirations; Negative Wheezes, Rales or Rhonchi
Cardiac: Regular Rhythm, S1/S2 and Gallop; Negative Murmur or Rub
Breast: N/A
GI: Soft, Nondistended, Normal Bowel Sounds and Distended
Genito-urinary: No Costovertebral Tender
Musculoskeletal: No Clubbing, No Cyanosis and No Edema
Skin: Warm, Dry and IV Access / Catheter Site
Neuro: AO x 3
Psych: Calm
--- NOTE | 2024-12-04 13:00 | CON.ONC ---
Consultation
-
Date Consultation Requested: 12/04/24
Date Consultation Performed: 12/04/24
Requesting Provider: Dr. Juarez
Performing Provider: Raheem Mirza
Reason for Consultation: AML
Impression
Impression
AML
pancytopenia
s/p fall
low grade temp
Plan
Plan
1. AML w/ pancytopenia
-s/p transfusion 1 unit PRBCs and plts in ER
-follow CBC and transfuse prn
-cont oupt antiviral and antifungal prophylaxis
-s/p recent marrow - await pathology
2. Fever - low grade temp in ER in context of chronic neutropenia
-cultures pending
-antibiotics for now
Will continue to follow with you.
Patient History
History of Present Illness
74y/o male seen in consultation today regarding h/o AML.
The patient has a h/o AML followed by Dr. Genao, currently being treated w/ Dacogen and venetoclax. He recently underwent a f/u marrow on 11/30 w/ pathology pending.
The patient presented to the [facility] ER on 12/03 s/p fall w/ weakness. CBC revealed pancytopenia. He has received transfusion of PRBCs and platelets in the ER.
Clinically, he is feeling slightly better. No SOB, chest pain, or abdominal pain. No fevers or chills today. His temp was 100.3F on presentation.
Past-Medical/Surgical History
PMH:
AML - Dr. Genao
pancytopenia
hyperlipidemia
cataracts
OR
Social History
Tobacco: Former Smoker
Alcohol: None
Family History
Family History: Not pertinent
Allergies: NKDA
Patient Medication
�Medication �Instructions �Recorded �Confirmed �Last Taken �Type
B6 35 mg-B9 3 mg-B12 2 mg-D3 62.5 1 cap PO BID Supplement 10/08/24 12/04/24 12/03/24 History
mcg-ALA 300 mg capsule,delay
release (EB-N5 )
ascorbic acid (vitamin C) 500 mg 500 mg PO DAILY Supplement 10/08/24 12/04/24 12/03/24 History
tablet (Vitamin C)
cyanocobalamin (vitamin B-12) 1,000 mcg PO DAILY Supplement 10/08/24 12/04/24 12/03/24 History
1,000 mcg tablet
empagliflozin 25 mg tablet 12.5 mg PO DAILY Diabetes 10/08/24 12/04/24 12/03/24 History
fenofibrate micronized 134 mg 134 mg PO DAILY High Cholesterol 10/08/24 12/04/24 12/03/24 History
capsule
metoprolol succinate 25 mg 25 mg PO DAILY Blood Pressure 10/08/24 12/04/24 12/03/24 History
tablet,extended release 24 hr
rosuvastatin 40 mg tablet (Crestor) 40 mg PO QPM High Cholesterol 10/08/24 12/04/24 12/03/24 History
therapeutic multivitamin 1 tab PO DAILY Supplement 10/08/24 12/04/24 12/03/24 History
acyclovir 400 mg tablet 400 mg PO BID 11/11/24 12/04/24 12/03/24 History
prochlorperazine maleate 10 mg 10 mg PO Q8HPRN PRN nausea 11/11/24 12/04/24 Unknown History
tablet
voriconazole 200 mg tablet 200 mg PO Q12H 11/11/24 12/04/24 12/03/24 History
levofloxacin 500 mg tablet 500 mg PO DAILY residential 12/04/24 12/04/24 12/03/24 History
omega3 550 nh-afw-vqm-D3 250 1 cap PO TID 12/04/24 12/04/24 12/03/24 History
unit-lutein 2.5 mg-zeaxant 0.5 mg
capsule ([place] Advantage)
tramadol 50 mg tablet 50 mg PO Q6HPRN PRN MODERATE PAINS 12/04/24 12/04/24 Unknown History
Active Medications
Generic Name Dose Route Start Last Admin
Trade Name Freq PRN Reason Stop Dose Admin
Acetaminophen 650 mg 12/04/24 05:04
Acetaminophen 325 Mg Tablet PO 01/01/25 05:03
Q6HPRN PRN
mild pain
Acetaminophen 650 mg 12/04/24 05:04
Acetaminophen 325 Mg Tablet PO 01/01/25 05:03
Q4HPRN PRN
mild pain/MEIJA/temp> 100.4F
Acyclovir Sodium 400 mg 12/04/24 08:00 12/04/24 09:40
Acyclovir Sodium 200 Mg Capsule PO 01/01/25 07:59 400 mg
BID AIDEN Administration
Bisacodyl 10 mg 12/04/24 05:04
Bisacodyl 10 Mg Rectal Suppository RECTAL 01/01/25 05:03
[id number] PRN
constipation
Cefepime HCl 2,000 mg 12/04/24 08:00 12/04/24 07:59
Cefepime Hcl 2,000 Mg/12.5 Ml Vial IV 2,000 mg
Q8H AIDEN Administration
Cyanocobalamin 1,000 mcg 12/04/24 08:00 12/04/24 09:40
Cyanocobalamin 1,000 Mcg Tablet PO 01/01/25 07:59 1,000 mcg
WEEKLY AIDEN Administration
Dextrose 12.5 grams 12/04/24 06:00
Dextrose 50% (0.5 Grams/Ml) 50 Ml Syringe IV 01/01/25 05:59
[id number] PRN
hypoglycemia
Protocol
Docusate Sodium 100 mg 12/04/24 12:54
Docusate Sodium 100 Mg Capsule PO 12/04/24 12:55
NOW STA
Docusate Sodium 100 mg 12/04/24 20:00
Docusate Sodium 100 Mg Capsule PO 01/01/25 19:59
BID AIDEN
Fenofibrate 145 mg 12/04/24 08:00 12/04/24 09:40
Fenofibrate 145 Mg Tablet PO 01/01/25 07:59 145 mg
DAILY AIDEN Administration
Glucagon 1 mg 12/04/24 06:00
Glucagon 1 Mg Vial IM 01/01/25 05:59
PRN PRN
hypoglycemia - no IV access
Protocol
Insulin Aspart 0 units 12/04/24 07:30 12/04/24 08:46
Insulin Aspart Low Resistance 300 Units/3 Ml Pen.Injctr SC 01/01/25 07:29 Not Given
AC AIDEN
Protocol
Metoprolol Succinate 25 mg 12/04/24 08:00 12/04/24 09:38
Metoprolol 25 Mg Extended Release Tablet PO 01/01/25 07:59 25 mg
DAILY AIDEN Administration
Ondansetron HCl 4 mg 12/04/24 05:04
Ondansetron 4 Mg/2 Ml Vial IV 01/01/25 05:03
Q6HPRN PRN
nausea and vomiting
Polyethylene Glycol 17 grams 12/04/24 05:04
Polyethylene Glycol Powder 17 Grams Packet PO 01/01/25 05:03
DAILYPRN PRN
constipation
Polyethylene Glycol 17 grams 12/04/24 13:00
Polyethylene Glycol Powder 17 Grams Packet PO 01/01/25 12:59
DAILY AIDEN
Rosuvastatin Calcium 40 mg 12/04/24 18:00
Rosuvastatin (Crestor) 40 Mg Tablet PO 01/01/25 17:59
QPM AIDEN
Senna/Docusate Sodium 1 tablet 12/04/24 05:04
Docusate W/Senna (Janie-Colace) Tablet PO 01/01/25 05:03
BIDPRN PRN
constipation
Sodium Chloride 0 flush 12/04/24 06:00
Sodium Chloride 0.9% (Flush) Syringe IV 01/01/25 05:59
PER PROTOCOL AIDEN
Voriconazole 200 mg 12/04/24 08:00 12/04/24 09:40
Voriconazole 200 Mg Tablet PO 12/14/24 07:59 200 mg
Q12 AIDEN Administration
Review of Systems
-
A ROS was performed w/ pertinent findings as per HPI.
Physical Exam
-
General: Well Developed and No Apparent Distress
HEENT: Negative Jaundice
Cardiology: Normal Sinus Rhythm
Pulmonary: Clear
Extremities: No C/C/E
Neurology: Non Focal
Labs
Lab Results
WBC 0.6 10^3/uL (4.8-10.8) L* 12/04/24 06:34
RBC 2.27 10^6/uL (4.70-6.10) L 12/04/24 06:34
Hgb 7.3 g/dL (13.0-18.0) L 12/04/24 06:34
Hct 20.7 % (39.0-52.0) L* 12/04/24 06:34
MCV 91.2 fL (80.0-94.0) 12/04/24 06:34
MCH 32.2 pg (27.0-31.0) H 12/04/24 06:34
MCHC 35.3 g/dL (33.0-37.0) 12/04/24 06:34
RDW 16.3 % (11.5-14.5) H 12/04/24 06:34
Plt Count 14 10^3/uL (130-400) L* D 12/04/24 06:34
MPV Not Reportable 12/04/24 06:34
Abs Immat Gran (auto) 0.0 10^3/uL (0-0.05) 12/03/24 22:49
Absolute Neuts (auto) 0.1 10^3/uL (1.4-6.5) L* 12/03/24 22:49
Absolute Lymphs (auto) 0.4 10^3/uL (1.2-3.4) L 12/03/24 22:49
Absolute Monos (auto) 0.0 10^3/uL (0.1-0.6) L 12/03/24 22:49
Absolute Eos (auto) 0.0 10^3/uL (0-0.7) 12/03/24 22:49
Absolute Basos (auto) 0.0 10^3/uL (0-0.2) 12/03/24 22:49
Immature Gran % 2.0 % (0-0.5) H 12/03/24 22:49
Neutrophils % 12.2 % (42.2-75.2) L 12/03/24 22:49
Lymphocytes % 77.6 % (20.5-51.1) H 12/03/24 22:49
Monocytes % 8.2 % (1.7-9.3) 12/03/24 22:49
Eosinophils % 0.0 % (0-6) 12/03/24 22:49
Basophils % 0.0 % (0-2) 12/03/24 22:49
Creatinine 0.5 mg/dL (0.7-1.3) L 12/04/24 08:18
Vital Signs
Vital Signs
Temp Pulse Resp BP Pulse Ox
98.1 F 91 21 117/57 98
12/04/24 10:40 12/04/24 09:38 12/04/24 06:00 12/04/24 09:38 12/04/24 10:43
[2024-12-04] MEDS: COLACE 100 MG PO ×2 (13:28→20:49)
[2024-12-04] MEDS: MIRALAX 17 GRAMS PO (13:28)
--- NOTE | 2024-12-04 13:58 | W.PN.UPDATE ---
Update Note
Progress Note Update
Neutropenic without fever as temperature has not been greater than 100.5
She is having a lot of follow-up cultures
From consult ID
Antibiotics
AML with pancytopenia
S/p 1 unit PRBC and platelets
Follow CBC
Continue antivirals antifungal prophylaxis
Mucocutaneous stomatitis
Magic mouthwash
Await infectious disease recommendation
Hyperlipidemia
Continue statin
Agree with resident note
--- NOTE | 2024-12-04 14:28 | CM ---
Met with patient at bedside in the ED
Pharmacy verified: [facility] @ [address] [facility], [place], [place]
Patient lives w/ ; one floor Rancher; one step to enter w/ grab bar to assist; Bath has walk-in shower w/ seat and grab bar
PLOF: reported that he has Leukemia; and was independent with personal care, ambulation and ADLs; drives sometimes; retired
DME: has a CPAP but unable to use it the past 3-4 weeks; has a glucometer, but does not use it
NO SNF or Home Health utilization history
will transport home
Plan: Anticipate discharge to home; Case Management will monitor for needs/services
--- NOTE | 2024-12-04 16:50 | CON.ID ---
Consultation
-
Date/Time Consultation Requested: December 04, 2024
Date/Time Consultation Performed: December 04, 2024
Requesting Provider: Dr. Per Peña
Performing Provider: Dr. Summer Del Toro
Reason for Consultation: Neutropenic 'fever'
Chief Complaint / Past History
Chief Complaint
Weakness
History of Present Illness
74-year-old male with history of diabetes mellitus, AML on treatment who presented to the hospital last night due to weakness. He slid off the chair and unable to get back up. He denies any fevers or chills. His chief complaint is mouth sores.
He developed these mouth sores in August 2024. He then had routine blood work October 2024 and noted to be pancytopenic and neutropenic for which he was hospitalized and underwent bone marrow biopsy. Biopsy showed AML. At the end of October was started
on chemotherapy Dacogen and venetoclax. He continued to have significant mouth pain/mouth sores. Chemotherapy had to be delayed. He underwent repeat bone marrow biopsy on November 30 for [employer] studies. In the ER temperature 100.3. Chest x-ray
negative. Urine analysis negative. Patient denies headache, sinus congestion, or rhinorrhea. No cough or shortness of breath. No chest pain. No nausea, vomiting, abdominal pain, or diarrhea. No urine symptoms. No flank pain. No rash. No ill
contacts. No recent travel. No pets. He reports Magic mouthwash did not help the mouth sores/pain. No history of HSV.
Past History
Additional Past Medical History:
AML on Dacogen and venetoclax, on acyclovir, levofloxacin, voriconazole ppx
Diabetes mellitus
CAD status post stent
Hypertension
Sleep apnea on CPAP
Allergy History:
amoxicillin Allergy (Verified 12/02/24 11:56)
Unknown
sulfamethoxazole (From Septra) Allergy (Verified 12/02/24 11:56)
Unknown
trimethoprim (From Janra) Allergy (Verified 12/02/24 11:56)
Unknown
Medications Reviewed: Yes
Current Antibiotics:
Cefepime 2 g IV Q8
Social History
Tobacco: Former Smoker
Alcohol: None
Drug: None
Personal:
Living: With Family
Family History
Family History: Not Pertinent
Review of Systems
Review of Systems
General: Change in Appetite; Negative Fever or Chills
HEENT: Negative Sinus Problems or Headache
Cardiovascular: Negative Chest Pain or Dyspnea
Respiratory: Negative Dyspnea or Cough
Gasteroenterology: Negative Nausea, Vomiting or Diarrhea
Genital / Urological: Negative Dysuria or Flank Pain
Endocrine: Weakness
Musculoskeletal: Negative Arthralgias or Myalgias
Skin / Hair / Nails: Negative Rash
All systems: All other systems were reviewed and were negative
Vital Signs
Temp Pulse Resp BP Pulse Ox
98.1 F 91 21 117/57 98
12/04/24 10:40 12/04/24 09:38 12/04/24 06:00 12/04/24 09:38 12/04/24 10:43
Physical Exam
Physical Exam
Constitutional: No Acute Distress and Non-toxic
Head: Other (No frontal or maxillary sinus tenderness)
Eyes: No Conjunctival Hemorrhage and Sclera Anicteric
Pharynx: Negative Erythema
Oral: Ulcers (Apthous ulcers on tip/side of tongue, buccal mucosa, gums)
Cardiovascular: Regular Rate and S1/S2
Pulmonary: Clear
Gastrointestinal: Soft, Non Tender, Non Distended and Normal Bowel Sounds
Genito-Urinary: Negative CVA Tenderness
Musculoskeletal: Negative Spinal Tenderness
Neurological: AO x 3
Lab / Diagnostic Study Results
12/04/24 06:34
12/04/24 08:18
Abs Immat Gran (auto) 0.0 10^3/uL (0-0.05) 12/03/24 22:49
Absolute Neuts (auto) 0.1 10^3/uL (1.4-6.5) L* 12/03/24 22:49
Absolute Lymphs (auto) 0.4 10^3/uL (1.2-3.4) L 12/03/24 22:49
Absolute Monos (auto) 0.0 10^3/uL (0.1-0.6) L 12/03/24 22:49
Absolute Basos (auto) 0.0 10^3/uL (0-0.2) 12/03/24 22:49
Immature Gran % 2.0 % (0-0.5) H 12/03/24 22:49
Neutrophils % 12.2 % (42.2-75.2) L 12/03/24 22:49
Lymphocytes % 77.6 % (20.5-51.1) H 12/03/24 22:49
Monocytes % 8.2 % (1.7-9.3) 12/03/24 22:49
Eosinophils % 0.0 % (0-6) 12/03/24 22:49
Basophils % 0.0 % (0-2) 12/03/24 22:49
Lactic Acid Cancelled 12/04/24 03:30
Ur Squamous Epith Cells 11-15 /LPF (Few) 12/04/24 04:59
Microbiology Results
Micro:
12/04/24 02:13 MRSA Screen - Pending
Nose
12/04/24 00:39 Blood Culture - Pending
Blood/Venous
12/03/24 23:57 Influenza Types A & B (SHIVANI) - Final
Nasal Swab Negative for Influenza A & B, NAAT
Negative results must be combined with clinical observations
and patient history.
Nucleic Acid Amplification test (NAAT)performed on the
[employer] platform.
12/03/24 23:57 Blood Culture - Pending
Blood/Venous
12/04/24 CXR: No acute pulmonary process identified.
Assessment / Plan
# Prolonged neutropenia due to AML
# Oral stomatitis associated with AML
# Weakness
# Low grade temp 100.3
# Recent dx of AML on chemo/therapy
- CXR negative
- UA neg.
- Blood cx's pending.
- Agree with cefepime pending cx data.
Pt at risk for oral mucosal bacterial translocation to bloodstream due to stomatitis.
[2024-12-04 17:19] LABS: Glucose - Point of Care 102 mg/dl (70-99)
[2024-12-04] MEDS: CRESTOR 40 MG PO (17:21)
[2024-12-04 21:21] LABS: Glucose - Point of Care 124 mg/dl (70-99)
[2024-12-04] MEDS: STERILE WATER FOR INJECTION IV ×3 (23:10)
[2024-12-04] MEDS: STERILE WATER FOR INJECTION 10 ML IV (23:12)
[2024-12-04] MEDS: FLUSH (NSS) 2 FLUSH IV (23:13)
[2024-12-05] VITALS (8 sets, daily range): BP systolic 99–139; BP diastolic 60–67; O2SAT 100
--- NOTE | 2024-12-05 07:01 | W.PN.HOSP.TC ---
Addendum entered and electronically signed by Blake Juarez MD 12/05/24 12:06:
Neutropenic without fever as temperature has not been greater than 100.5
She is having a lot of follow-up cultures
From consult ID
Antibiotics - Cefepime, continue till bcx remain negative at 48hr-72hrs
AML with pancytopenia
S/p 1 unit PRBC and platelets
Follow CBC
Continue antivirals antifungal prophylaxis
Mucocutaneous stomatitis
Magic mouthwash
Await infectious disease recommendation
Hyperlipidemia
Continue statin
Constipation
Avoid rectal prep
Gvie seen/miralax
Start lactulose
Check Obstruction series
Agree with resident note
Original Note:
Today's Communication/Plan
-
;/
Assessment / Plan
Assessment / Plan
Assessment/plan
#Prolonged neutropenia secondary to AML
-Recent diagnosis of AML on chemotherapy
-Pancytopenia
-No fever episodes this admission
-Initiated on IV cefepime
-ID consulted, input appreciated
-Blood cultures preliminary negative, MRSA pending
-S/p 1 units PRBC, 1 unit platelets upon presentation
-Transfuse 1 unit of platelets today 12/05
-Oncology consulted, input appreciated
-Had a recent bone marrow biopsy on 11/30, pathology pending
-Continue prophylaxis with acyclovir voriconazole, levofloxacin held due to cefepime use at this time
-Monitor CBC
-Transfusion protocol to keep Hgb >7, platelets >20k.
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
-Continue magic mouthwash
-ID following
#Mechanical Fall likely secondary to deconditioning
-Denies hitting her head, denies LOC
-PT/OT
-Fall precaution
#JERRY on nightly CPAP
#Hyperlipidemia
-Continue statin, fenofibrate
#T2DM
-Coverage with SSI
-Holding empagliflozin
-A1c 5.3 (10/09/2024)
DVT prophylaxis SCDs
CODE STATUS full code
Anticipated Discharge: 24 - 48 hours
Subjective/Interval History
-
Patient seen and examined at bedside. States he has had no bowel movements in the past few days.
Objective Data
-
Labs:
Laboratory Results
12/05/24
07:00
WBC Pending
Hgb Pending
Hct Pending
Plt Count Pending
Vital Signs:
Vital Signs
Temp Pulse Resp BP Pulse Ox
98.7 F 74 20 109/86 100
12/04/24 23:39 12/04/24 23:39 12/04/24 23:39 12/04/24 23:39 12/04/24 23:39
I&O
12/04/24 12/05/24 12/06/24
06:59 06:59 06:59
Intake Total 261 / 261 720 / 720
Balance 261 / 261 720 / 720
Review of Systems
-
All other systems: Reviewed and negative (Except as documented)
Physical Exam
-
General: Well Developed and No Apparent Distress
Respiratory: Clear to Auscultation
Cardiac: Regular Rhythm and S1/S2
GI: Soft and Tender
Musculoskeletal: No Edema
Skin: Warm and Dry
Neuro: Awake, Alert, Oriented and AO x 3
Psych: Calm
[2024-12-05 07:34] LABS: Hematocrit 21.7 % (39.0-52.0); Hemoglobin 7.7 g/dL (13.0-18.0); Mean Corp Hgb Conc. 35.5 g/dL (33.0-37.0); Mean Corpuscular Volume 91.6 fL (80.0-94.0); Platelet Count 7 10^3/uL (130-400); Red Cell Dist. Width 16.5 % (11.5-14.5)
[2024-12-05 07:49] LABS: Blood Urea Nitrogen 15 mg/dl (9-20); Calcium 8.1 mg/dl (8.4-10.2); Carbon Dioxide 22 mmol/L (22-30); Chloride 108 mmol/L (98-107); Estimated Creatinine Clearance 95 ml/min; Glucose 86 mg/dl (70-99); Potassium 3.4 mmol/L (3.5-5.1); Sodium 136 mmol/L (135-145); eGFR > 60.00
[2024-12-05 07:59] LABS: Glucose - Point of Care 104 mg/dl (70-99)
--- NOTE | 2024-12-05 09:15 | W.PN.ID1 ---
Date of Service
Date of Service: December 05, 2024
Today's Communication
Continue cefepime for now.
Assessment / Plan
# Prolonged neutropenia due to AML
# Oral stomatitis associated with AML
# Pancytopenia, frequent transfusions
# Weakness
# Low grade temp 100.3 resolved
# Recent dx of AML on chemo/therapy
- CXR negative
- UA neg.
- Blood cx's neg x 24h
- Continue cefepime for now. Can dc cefepime if blood cx's remain neg for 48-72h
- supportive care
Chief Complaint
-: Other (Neutropenia)
Subjective / Review of Systems
C/o no BM for few days.
Weakness better.
Mouth sore/pain same.
Vital Signs / Physical Exam
Vital Signs
Vital Signs
Temp Pulse Resp BP Pulse Ox
99.9 F 85 28 138/67 98
12/05/24 07:00 12/05/24 07:00 12/05/24 07:00 12/05/24 07:00 12/05/24 07:00
Physical Exam
Constitutional: No Acute Distress
Eyes: No Conjunctival Hemorrhage and Sclera Anicteric
Oropharyngeal: Ulcers (on tongue, gingiva, mucosa)
Cardiovascular: Regular Rate and S1/S2
Pulmonary: Clear
Gastrointestinal: Soft, Non Tender, Non Distended and Normal Bowel Sounds
Genito-Urinary: Negative CVA Tenderness
Extremities: Negative Edema
Neurological: AO x 3
Objective Data
Lab Data
Lab Results
12/05/24 07:13
12/05/24 07:13
Estimated Creat Clear 95 ml/min 12/05/24 07:13
Lactic Acid Cancelled 12/04/24 03:30
Total Bilirubin 0.9 mg/dl (0.2-1.3) 12/03/24 22:49
AST 34 U/L (17-59) 12/03/24 22:49
ALT 25 U/L (0-50) 12/03/24 22:49
Alkaline Phosphatase 51 U/L (38-126) 12/03/24 22:49
Most recent labs reviewed.
Micro Results:
12/04/24 02:13 MRSA Screen - Final
Nose No Methicillin Resistant Staphylococcus aureus isolated.
12/04/24 00:39 Blood Culture - Preliminary
Blood/Venous No Growth in 24 hours- Final report to follow
12/03/24 23:57 Blood Culture - Preliminary
Blood/Venous No Growth in 24 hours- Final report to follow
12/03/24 23:57 Influenza Types A & B ([facility]IVANI) - Final
Nasal Swab Negative for Influenza A & B, NAAT
Negative results must be combined with clinical observations
and patient history.
Nucleic Acid Amplification test (NAAT)performed on the
[employer] platform.
12/04/24 CXR: No acute pulmonary process identified.
Care Review
Plan reviewed with: Physician (Dr. Mauricio)
[2024-12-05] MEDS: ZOVIRAX 400 MG PO ×2 (09:20→20:01)
[2024-12-05] MEDS: MIRALAX 17 GRAMS PO (09:20)
[2024-12-05] MEDS: VFEND 200 MG PO ×2 (09:20→20:01)
[2024-12-05] MEDS: TOPROL XL 25 MG PO (09:21)
[2024-12-05] MEDS: COLACE 100 MG PO (09:21)
[2024-12-05] MEDS: TRICOR 145 MG PO (09:21)
[2024-12-05] MEDS: MAGIC OR MIRACLE MOUTHWASH 5 ML PO (09:22)
[2024-12-05] MEDS: MAXIPIME 2000 MG IV ×3 (09:24→23:26)
[2024-12-05] MEDS: FLUSH (NSS) 2 FLUSH IV ×3 (09:24→23:27)
[2024-12-05] MEDS: STERILE WATER FOR INJECTION 10 ML IV ×3 (09:24→23:26)
[2024-12-05] MEDS: KCL 40 MEQ PO ×2 (09:42→09:50)
[2024-12-05 12:18] LABS: Glucose - Point of Care 95 mg/dl (70-99)
--- NOTE | 2024-12-05 13:21 | W.PN.ONC ---
Today's Communication / Plan
-
cont antibiotics as per ID
plt transfusion today
follow CBC
Impression
Impression
AML
pancytopenia
s/p fall
low grade temp
neutropenic fever
Plan
Plan
1. AML w/ pancytopenia
-for transfusion 1 unit plts today
-follow CBC and transfuse prn
-cont oupt antiviral and antifungal prophylaxis
-s/p recent marrow - await pathology
2. Fever - low grade temp in ER in context of chronic neutropenia
-cultures pending
-antibiotics for now
-ID following
Will continue to follow with you.
Subjective/Objective
Subjective/Objective
feels better - no fevers, no bleeding
Vital Signs:
Vital Signs
Temp Pulse Resp BP Pulse Ox
99.1 F 78 18 134/67 98
12/05/24 11:42 12/05/24 11:42 12/05/24 11:42 12/05/24 11:42 12/05/24 07:00
Lab Results:
Laboratory Data
WBC 0.5 10^3/uL (4.8-10.8) L* 12/05/24 07:13
Hgb 7.7 g/dL (13.0-18.0) L 12/05/24 07:13
Plt Count 7 10^3/uL (130-400) L* D 12/05/24 07:13
eGFR > 60.00 12/05/24 07:13
Exam:
Gen: awake in NAD
HEENT: mucositis
CV: RRR
Pulm: CTAb
Neuro: A&O x3
Orders
Orders
Orders From Last 24 Hours
12/05/24 08:15
* Blood Bank Products Urgent
[2024-12-05] MEDS: DUPHALAC/CHRONULAC 20 GRAMS PO (14:37)
[2024-12-05 17:23] LABS: Glucose - Point of Care 115 mg/dl (70-99)
[2024-12-05] MEDS: CRESTOR 40 MG PO (17:37)
--- NOTE | 2024-12-05 17:51 | PTCARENOTE ---
Pt is interested in going home first thing tomorrow. Just passing the message on. Thanks
[2024-12-05] MEDS: COLACE PO (20:01)
[2024-12-05 20:59] LABS: Glucose - Point of Care 126 mg/dl (70-99)
[2024-12-06 05:57] LABS: Hematocrit 20.3 % (39.0-52.0); Hemoglobin 7.2 g/dL (13.0-18.0); Mean Corp Hgb Conc. 35.5 g/dL (33.0-37.0); Mean Corpuscular Volume 91.0 fL (80.0-94.0); Platelet Count 7 10^3/uL (130-400); Red Cell Dist. Width 16.2 % (11.5-14.5)
[2024-12-06 05:58] LABS: Blood Urea Nitrogen 16 mg/dl (9-20); Calcium 8.2 mg/dl (8.4-10.2); Carbon Dioxide 22 mmol/L (22-30); Chloride 109 mmol/L (98-107); Estimated Creatinine Clearance 95 ml/min; Glucose 104 mg/dl (70-99); Magnesium 2.1 mg/dl (1.6-2.3); Potassium 3.6 mmol/L (3.5-5.1); Sodium 136 mmol/L (135-145); eGFR > 60.00
--- NOTE | 2024-12-06 06:46 | W.PN.UPDATE ---
Update Note
Progress Note Update
AM labs critical value received: Platelets 7. Ordered 1 unit platelets to be transfused now.
[2024-12-06 07:20] VITALS: BP 133/63
[2024-12-06 07:24] LABS: Glucose - Point of Care 109 mg/dl (70-99)
--- NOTE | 2024-12-06 07:47 | W.PN.HOSP.TC ---
Addendum entered and electronically signed by Blake Juarez MD 12/06/24 12:20:
discharge home as cleared by hematology after completed 1u of platelets
48hours post ngtd bcxs
Original Note:
Today's Communication/Plan
-
See A/P
Assessment / Plan
Assessment / Plan
Assessment/plan
#Prolonged neutropenia secondary to AML
-Recent diagnosis of AML on chemotherapy
-Pancytopenia
-No fever episodes this admission
-Initiated on IV cefepime, blood cultures negative after 48 hours. Will DC cefepime
-ID consulted, input appreciated
-S/p 1 units PRBC,2 unit platelets transfusion so far. No bleeding episodes
-Transfuse 1 unit of platelets today 12/06 given critical lab results
-Oncology consulted, input appreciated
-Had a recent bone marrow biopsy on 11/30, pathology pending
-Continue prophylaxis with acyclovir voriconazole, levofloxacin held due to cefepime use at this time
-Monitor CBC
-Transfusion protocol to keep Hgb >7, platelets >20k.
-For possible discharge today
#Constipation with abdominal distention
-S/p 6 bowel movement episodes yesterday after lactulose administration
-Avoid rectal regimen
-Continue lactulose, MiraLAX, senna
-Obstruction series 12/05/2024�no evidence for bowel obstruction or free intraperitoneal air
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
-Continue magic mouthwash
-ID following
#Mechanical Fall likely secondary to deconditioning
-Denies hitting her head, denies LOC
-PT/OT
-Fall precaution
#JERRY on nightly CPAP
#Hyperlipidemia
-Continue statin, fenofibrate
#T2DM
-Coverage with SSI
-Holding empagliflozin
-A1c 5.3 (10/09/2024)
DVT prophylaxis SCDs
CODE STATUS full code
Anticipated Discharge: Today
Subjective/Interval History
-
Patient seen and examined at bedside. had multiple bowel movements (up to 6) yesterday. Nonbloody stools. Denies bleeding episode. Reports mild abdominal tenderness
Otherwise in no distress
Objective Data
-
Labs:
Laboratory Results
12/06/24
05:00
WBC 0.7 L*
Hgb 7.2 L
Hct 20.3 L*
Plt Count 7 L*
Sodium 136
Potassium 3.6
Chloride 109 H
Carbon Dioxide 22
BUN 16
Creatinine 0.5 L
Glucose 104 H
Calcium 8.2 L
Vital Signs:
Vital Signs
Temp Pulse Resp BP Pulse Ox
99.4 F 85 20 99/63 99
12/05/24 23:26 12/05/24 23:26 12/05/24 23:26 12/05/24 23:26 12/05/24 23:26
I&O
12/05/24 12/06/24 12/07/24
06:59 06:59 06:59
Intake Total 720 / 720 1840
Balance 720 / 720 1840
Review of Systems
-
All other systems: Reviewed and negative (Except as documented)
Physical Exam
-
General: Well Developed and No Apparent Distress
HEENT: Normocephalic
Respiratory: Clear to Auscultation
Cardiac: Regular Rhythm and S1/S2
GI: Soft, Nondistended, Normal Bowel Sounds and Tender (Mild tenderness to the right upper quadrant region)
Musculoskeletal: No Edema
Skin: Warm
Neuro: Awake, Alert, Oriented and AO x 3
Psych: Calm
[2024-12-06 08:11] LABS: Platelets Checked Yes
[2024-12-06 08:17] LABS: Anisocytosis Slight; Hypochromasia Slight; Normal RBC Morphology No; Ovalocytes Slight; Total Cells Counted 100
[2024-12-06 08:18] LABS: Absolute Neutrophils -Man Diff 0.0 10^3/uL (1.4-6.5)
[2024-12-06] MEDS: MAXIPIME 2000 MG IV (10:03)
[2024-12-06] MEDS: STERILE WATER FOR INJECTION 10 ML IV (10:03)
[2024-12-06] MEDS: ZOVIRAX 400 MG PO (10:03)
[2024-12-06] MEDS: TRICOR 145 MG PO (10:03)
[2024-12-06] MEDS: VFEND 200 MG PO (10:04)
[2024-12-06] MEDS: MAGIC OR MIRACLE MOUTHWASH 5 ML PO (10:04)
[2024-12-06] MEDS: COLACE PO (10:04)
[2024-12-06] MEDS: TOPROL XL 25 MG PO (10:04)
[2024-12-06] MEDS: DUPHALAC/CHRONULAC PO (10:07)
[2024-12-06] MEDS: MIRALAX PO (10:14)
[2024-12-06 10:29] VITALS: BP 133/63
[2024-12-06 10:50] VITALS: BP 122/56
[2024-12-06 12:06] LABS: Glucose - Point of Care 132 mg/dl (70-99)
--- NOTE | 2024-12-06 12:08 | W.PN.ONC ---
Today's Communication / Plan
-
for plt transfusion today
afebrile - cultures negative
ID following
has outpt f/u tomorrow scheduled w/ Dr. Genao
Impression
Impression
AML
pancytopenia
s/p fall
low grade temp
neutropenic fever
Plan
Plan
1. AML w/ pancytopenia
-for transfusion 1 unit plts today
-follow CBC and transfuse prn
-cont oupt antiviral and antifungal prophylaxis
-s/p recent marrow - await pathology
2. Fever - low grade temp in ER in context of chronic neutropenia
-no further fevers
-cultures negative x 48 hours
-antibiotics for now
-ID following
Will continue to follow with you.
Subjective/Objective
Subjective/Objective
feels better - afebrile
Vital Signs:
Vital Signs
Temp Pulse Resp BP Pulse Ox
98.5 F 81 18 133/63 100
12/06/24 10:29 12/06/24 10:29 12/06/24 10:29 12/06/24 10:29 12/06/24 08:30
Lab Results:
Laboratory Data
WBC 0.7 10^3/uL (4.8-10.8) L* 12/06/24 05:00
Hgb 7.2 g/dL (13.0-18.0) L 12/06/24 05:00
Plt Count 7 10^3/uL (130-400) L* 12/06/24 05:00
eGFR > 60.00 12/06/24 05:00
Exam: unchanged
[2024-12-06 12:10] VITALS: BP 121/59
[2024-12-06 12:13] VITALS: BP 121/59
--- NOTE | 2024-12-06 12:39 | W.PN.ID1 ---
Date of Service
Date of Service: December 06, 2024
Today's Communication
- Can dc cefepime
- Resume prophylactic levofloxacin.
Assessment / Plan
# Prolonged neutropenia due to AML
# Oral stomatitis associated with AML
# Pancytopenia, frequent transfusions
# Weakness
# Low grade temp 100.3 x 1 resolved
# Recent dx of AML on chemo/therapy
- CXR negative
- UA neg.
- Blood cx's neg x 48h
- Can dc cefepime
- Resume prophylactic levofloxacin.
Chief Complaint
-: Other (Neutropenia)
Subjective / Review of Systems
No abd pain. Had large BM.
Vital Signs / Physical Exam
Vital Signs
Vital Signs
Temp Pulse Resp BP Pulse Ox
98.9 F 77 16 121/59 99
12/06/24 12:13 12/06/24 12:13 12/06/24 12:13 12/06/24 12:13 12/06/24 12:10
Physical Exam
Constitutional: No Acute Distress
Eyes: No Conjunctival Hemorrhage and Sclera Anicteric
Oropharyngeal: Ulcers (on tongue, gingiva, mucosa)
Cardiovascular: Regular Rate and S1/S2
Pulmonary: Clear
Gastrointestinal: Soft, Non Tender, Non Distended and Normal Bowel Sounds
Genito-Urinary: Negative CVA Tenderness
Extremities: Negative Edema
Neurological: AO x 3
Objective Data
Lab Data
Lab Results
12/06/24 05:00
12/06/24 05:00
Estimated Creat Clear 95 ml/min 12/06/24 05:00
Lactic Acid Cancelled 12/04/24 03:30
Total Bilirubin 0.9 mg/dl (0.2-1.3) 12/03/24 22:49
AST 34 U/L (17-59) 12/03/24 22:49
ALT 25 U/L (0-50) 12/03/24 22:49
Alkaline Phosphatase 51 U/L (38-126) 12/03/24 22:49
Most recent labs reviewed.
Micro Results:
12/04/24 00:39 Blood Culture - Preliminary
Blood/Venous No Growth in 48 hours- Final report to follow
12/03/24 23:57 Blood Culture - Preliminary
Blood/Venous No Growth in 48 hours- Final report to follow
12/04/24 02:13 MRSA Screen - Final
Nose No Methicillin Resistant Staphylococcus aureus isolated.
12/03/24 23:57 Influenza Types A & B ([facility]IVANI) - Final
Nasal Swab Negative for Influenza A & B, NAAT
Negative results must be combined with clinical observations
and patient history.
Nucleic Acid Amplification test (NAAT)performed on the
[employer] platform.
12/04/24 CXR: No acute pulmonary process identified.
--- NOTE | 2024-12-06 12:58 | CM ---
Reviewed the chart notes and spoke with the patient and his spouse at the bedside. IMM reviewed. CM continues to be available to patient/family and is monitoring medical plan for needs at discharge.
Plan: Discharge to home today. Spouse will provide transportation.
[2024-12-06 13:50] VITALS: BP 102/55
--- NOTE | 2024-12-06 14:28 | W.DCSUMMARY ---
Discharge Summary
Discharge Data
Date of Admission: 12/04/24
Date of Discharge: 12/06/24
-
Pending Results: No
Hospital Course
Brief Hospital course; This is a 74-year-old male with past medical history of CAD, AML on infusions, pancytopenia requiring recent infusions who presented to ED 12/04 due to feeling weak and sliding out of his chair while unable to get up.
Prior to the episode he reported he was fine. Upon presentation to the emergency department, he was leukopenic to 0.5, hemoglobin of 7.1, platelets of 5. EKG with normal sinus rhythm and right bundle branch block. Chest x-ray was negative, COVID
testing was negative. The patient was initiated on IV cefepime while blood cultures return. He was transfused 1 unit packed red blood cell, 1 unit platelets upon presentation. Oncology was consulted to evaluate the patient. It was noted that he
had a recent bone marrow biopsy on 11/30 with pathology result pending. The patient was admitted. He was continued on his prophylaxis with acyclovir, voriconazole. Levofloxacin was held due to cefepime use. Throughout the course of his hospital
stay, the patient was afebrile in no distress. He had no bleeding episode. He required additional 1 units of platelets transfusion on 12/04 and 1 unit of platelet transfusion in 12/05. Blood cultures were negative after 48 hours. Cefepime was
discontinued. He was cleared for discharge by infectious disease and oncology and scheduled to follow-up with his oncologist Dr. Genao tomorrow 12/07. He will be discharged home today to continue on his usual home regimen with no changes.
Discharge Plan
-
Patient Disposition: Home (Routine Discharge)
Discharge Diagnosis/Procedures: Prolonged neutropenia secondary to AML
Mucocutaneous Stomatitis secondary to AML
Condition: Fair
Activity: As tolerated
Activity Restrictions/Additional Instructions:
Has an outpatient follow-up scheduled with Dr. Genao tomorrow 12/07/2024
Referrals:
Paola Lucio MD [Family Provider, Family Practice] - in one to two weeks
Additional Discharge Medication Instructions: Continue home medications as prior to admission
No changes to medication regimen
Prescriptions:
Continued
cyanocobalamin (vitamin B-12) 1,000 mcg Tablet
1,000 mcg PO DAILY
therapeutic multivitamin Tablet
1 tab PO DAILY
fenofibrate micronized 134 mg Capsule
134 mg PO DAILY
ascorbic acid (vitamin C) [Vitamin C] 500 mg Tablet
500 mg PO DAILY
rosuvastatin [Crestor] 40 mg Tablet
40 mg PO QPM
empagliflozin 25 mg Tablet
12.5 mg PO DAILY
Patient Comments:
GET FROM THE [facility]
EB-N5 DR 35 mg-3 mg- 2 mg-62.5 mcg Capsule,Delayed Release(Dr/Ec)
1 cap PO BID
metoprolol succinate 25 MG tablet extended release 24 hr
25 mg PO DAILY
prochlorperazine maleate 10 mg Tablet
10 mg PO Q8HPRN PRN (Reason: nausea)
acyclovir 400 mg Tablet
400 mg PO BID
voriconazole 200 mg Tablet
200 mg PO Q12H
tramadol 50 mg Tablet
50 mg PO Q6HPRN PRN (Reason: MODERATE PAINS)
levofloxacin 500 mg Tablet
500 mg PO DAILY
Eye [place] Advantage 550-250-2.5-0.5 xi-yxik-st-mg Capsule
1 cap PO TID
Discharge Orders:
Discharge Patient (As Directed); Ordered 12/06/24
Ordered By: Char Simpson
Discharge Date and Time
Print Language: MALIAN
== END 2024-12-06 14:33 | disposition home or self-care (01) | DRG 835 ==
LOC: 2 NORTH 01:44
PROVIDERS: Emergency Medicine; Student in an Organized Health Care Education/Training Program; ADMITTING PHYSICIAN Internal Medicine; ATTENDING PHYSICIAN Hospitalist; CONSULT PHYSICIAN Internal Medicine Infectious Disease; EMERGENCY PHYSICIAN Student in an Organized Health Care Education/Training Program; FAMILY PHYSICIAN Family Medicine; OTHER PHYSICIAN Internal Medicine Hematology & Oncology
PROC: 30233N1 Transfusion of Nonautologous Red Blood Cells into Peripheral Vein, Percutaneous Approach (ICD-10-PCS; 2024-12-04)
PROC: 30233R1 Transfusion of Nonautologous Platelets into Peripheral Vein, Percutaneous Approach (ICD-10-PCS; 2024-12-04)
DX: C92.00 Acute myeloblastic leukemia, not having achieved remission (principal); D61.818 Other pancytopenia; D70.9 Neutropenia, unspecified; K12.1 Other forms of stomatitis; I25.10 Atherosclerotic heart disease of native coronary artery without angina pectoris; I45.10 Unspecified right bundle-branch block; Z79.84 Long term (current) use of oral hypoglycemic drugs; E11.9 Type 2 diabetes mellitus without complications; I10 Essential (primary) hypertension; Z95.5 Presence of coronary angioplasty implant and graft; Z87.891 Personal history of nicotine dependence; Z88.0 Allergy status to penicillin; Z88.2 Allergy status to sulfonamides; K59.00 Constipation, unspecified; Z79.82 Long term (current) use of aspirin; E78.00 Pure hypercholesterolemia, unspecified; G47.33 Obstructive sleep apnea (adult) (pediatric); R50.81 Fever presenting with conditions classified elsewhere; Z11.52 Encounter for screening for COVID-19
CPT/HCPCS: 36430; 71046; 74022; 80048; 80053; 81003; 81015; 82962; 83605; 83735; 85025; 85027; 86850; 86900; 86901; 86920; 87040; 87070; 87502; 87811; 93005; 96361; 96374; 97162; 99285; P9058; P9073

== ENCOUNTER 2024-12-08 08:25 | Outpatient (RCR) | payer OTHER, SELFPAY ==
[2024-12-07 10:15] LABS: ALT (SGPT) 56 U/L (0-50); AST (SGOT) 65 U/L (17-59); Albumin 3.1 g/dl (3.5-5.0); Alkaline Phosphatase 67 U/L (38-126); Blood Urea Nitrogen 17 mg/dl (9-20); Calcium 8.8 mg/dl (8.4-10.2); Carbon Dioxide 26 mmol/L (22-30); Chloride 108 mmol/L (98-107); Glucose 99 mg/dl (70-99); Potassium 4.0 mmol/L (3.5-5.1); Sodium 138 mmol/L (135-145); Total Protein 5.7 g/dl (6.3-8.2); eGFR > 60.00
[2024-12-07 10:27] LABS: Hematocrit 23.1 % (39.0-52.0); Hemoglobin 8.0 g/dL (13.0-18.0); Mean Corp Hgb Conc. 34.6 g/dL (33.0-37.0); Mean Corpuscular Volume 93.1 fL (80.0-94.0); Red Cell Dist. Width 16.0 % (11.5-14.5)
[2024-12-07 10:29] LABS: Anisocytosis 1+; Hypochromasia 1+; Normal RBC Morphology No; Platelets Checked Yes; Polychromasia 1+
[2024-12-07 10:30] LABS: Ovalocytes 1+; Total Cells Counted 100
[2024-12-07 10:32] LABS: Absolute Neutrophils -Man Diff 0.0 10^3/uL (1.4-6.5); Platelet Count 9 10^3/uL (130-400)
[2024-12-08] MEDS: TYLENOL 650 MG PO (09:25)
[2024-12-08 09:29] VITALS: BP 131/61
[2024-12-08 09:46] VITALS: BP 121/59
[2024-12-08 10:24] VITALS: BP 119/59
[2024-12-08 10:50] VITALS: BP 121/60
[2024-12-08 11:40] VITALS: BP 120/60
[2024-12-10 11:58] LABS: Hematocrit 18.0 % (39.0-52.0); Hemoglobin 6.2 g/dL (13.0-18.0); Mean Corp Hgb Conc. 34.4 g/dL (33.0-37.0); Mean Corpuscular Volume 92.3 fL (80.0-94.0); Nucleated Red Blood Cells % 0 % (-); Platelet Count 8 10^3/uL (130-400); Red Cell Dist. Width 16.3 % (11.5-14.5)
[2024-12-10 12:23] LABS: ALT (SGPT) 33 U/L (0-50); AST (SGOT) 50 U/L (17-59); Albumin 2.7 g/dl (3.5-5.0); Alkaline Phosphatase 62 U/L (38-126); Blood Urea Nitrogen 18 mg/dl (9-20); Calcium 7.9 mg/dl (8.4-10.2); Carbon Dioxide 24 mmol/L (22-30); Chloride 105 mmol/L (98-107); Glucose 119 mg/dl (70-99); Potassium 3.6 mmol/L (3.5-5.1); Sodium 133 mmol/L (135-145); Total Protein 5.1 g/dl (6.3-8.2); eGFR > 60.00
== END 2025-01-03 23:59 | disposition home or self-care (01) ==
LOC: OID 08:25
PROVIDERS: Internal Medicine Hematology & Oncology; ATTENDING PHYSICIAN Internal Medicine Hematology & Oncology; FAMILY PHYSICIAN Family Medicine
DX: D61.818 Other pancytopenia (principal); D69.6 Thrombocytopenia, unspecified; D70.9 Neutropenia, unspecified; D53.9 Nutritional anemia, unspecified
CPT/HCPCS: 36415; 36430; 80053; 85025; 86850; 86900; 86901; P9073

== ENCOUNTER → 2024-12-09 17:39 | Outpatient (REF) | payer OTHER, SELFPAY | LOC: RAD 17:39 | PROVIDERS: ATTENDING PHYSICIAN Nurse Practitioner Primary Care; FAMILY PHYSICIAN Family Medicine | DX: C92.Z0 Other myeloid leukemia not having achieved remission (principal); D61.818 Other pancytopenia; D69.6 Thrombocytopenia, unspecified; D70.9 Neutropenia, unspecified; D53.9 Nutritional anemia, unspecified; R33.9 Retention of urine, unspecified | CPT/HCPCS: 76770 ==

== ENCOUNTER 2024-12-10 16:38 | Inpatient (IN) | payer OTHER, SELFPAY ==
[2024-12-10] VITALS (19 sets, daily range): BP systolic 108–154; BP diastolic 43–109; BMI 31.0; BMI 29.8
--- NOTE | 2024-12-10 14:36 | EDRN ---
Dr. Bruce in room w/ pt at this time.
--- NOTE | 2024-12-10 14:39 | ED.GENMED ---
History of Present Illness
General
Chief Complaint: Abnormal Lab Value
Time Seen by Provider: 12/10/24 14:19
History of Present Illness
History of Present Illness:
74-year-old male history of leukemia presenting with anemia and rectal bleeding. Patient states that he has a hemorrhoid that was bleeding yesterday. Pt states bleeding has since resolved. Patient states that he had routine blood work that showed
hemoglobin 6.2 prompting ED arrival. Patient denies chest pain, shortness of breath, dizziness. Patient states he has been having difficulty urinating for the past 1 week, states that he is able to get urine out but feels like he is unable to
completely empty his bladder. Patient denies dysuria, hematuria or, fever or chills. Patient is not on blood thinners. Patient reports mouth sores for the past few months from chemotherapy, difficulty eating secondary to pain from sores.
Past History
Past History
ED Past Medical History: Hypercholesterolemia, NIDDM, ND and Other (Diverticulitis)
ED Past Surgical History: Cardiac (Stent X1)
Social History
Tobacco: Former smoker
Alcohol: None
Personal:
Living: with family
Phy Exam
Physical Exam
Physical Exam:
General: Alert, no acute distress
Head: NCAT
Eyes: clear conjunctiva
Neck: supple
Cardiac: regular rate and rhythm, no murmur
Lungs: clear to auscultation bilaterally. No wheezes, rales, or rhonchi. Speaking full unlabored sentences. No respiratory distress.
Abdomen: soft, nondistended nontender. No rebound or guarding.
MSK: no lower extremity edema bilaterally. No deformity
Skin: warm, dry
Neuro: Alert and oriented x3. no focal deficits
Rectal: nonbleeding external hemorrhoid. Minimal stool in rectal vault, guaiac positive. No blood visualized.
Course
Orders/Labs/Results
Orders:
Orders
12/10/24 14:38
CBC/With Diff [Complete Blood Count/With Diff] Urgent
CMP [Comprehensive Metabolic Panel] Urgent
UA Reflex to Culture [Urinalysis Reflex To Culture] Urgent
12/10/24 14:42
* Blood Bank Products Urgent
Blood Bank Products: *Packed RBC Leuko(PRBC's)
Quantity: 2
Transfuse Today: Yes
Reason: Anemia
Other reason: gi bleed
12/10/24 14:54
Protime/PTT Urgent
12/10/24 15:11
Pantoprazole [Protonix IV] 80 mg IV NOW STA
12/10/24 15:13
* Blood Bank Products Urgent
Blood Bank Products: *Plt Single Donor Leuko
Quantity: 1
Transfuse Today: Yes
Reason: Bleeding
12/10/24 15:18
Type+Screen Stat
BBK Wristband Number:
Abnormal Lab Results
12/10/24 12/10/24
14:54 15:18
PT 16.5 H Sec
(11.4-14.6)
APTT 45.0 H Sec
(23.4-35.0)
Crossmatch IS Only See Detail
Vital Signs
Initial and Last Documented VS:
Initial Vital Signs
Temp Pulse Resp BP Pulse Ox
98.3 F 84 18 126/109 100
12/10/24 13:20 12/10/24 13:20 12/10/24 13:20 12/10/24 13:20 12/10/24 13:20
Last Documented Vital Signs
Temp Pulse Resp BP Pulse Ox
98.3 F 80 23 111/90 99
12/10/24 13:20 12/10/24 16:00 12/10/24 16:00 12/10/24 16:00 12/10/24 15:45
MDM/Problems Addressed
Differential Diagnosis Includes:
GI bleed, anemia, UTI, urinary retention, chemotherapy side effect
MDM/Problems Addressed:
Hemoglobin 6.2 (previously 8 3 days ago), platelets 8 (previously 9 3 days ago). Given new concerning for GI bleed, will give protonix, transfuse 2 units PRBC and 1 unit platelet. Bladder scan 31cc, pt not currently retaining urine. Discussed
results with patient and family who are agreeable for admission. Discussed indications as well as risks vs benefits of blood transfusion with patient who gave verbal and written consent for blood. Discussed with hospitalist for admission
*Pulse Oximetry
SaO2: 100
Oxygen Mode of Delivery: Room air
Patient hypoxic: no
*Critical Care Note
Total Time (30-74mins, 75-104mins- exclusive of procedures): Not Applicable
ED Attending Note
-
Portions of this chart may have been created with voice recognition software.� Occasional wrong word or��sound alike� substitutions may have occurred due to the inherent limitations of voice recognition software.
Discharge Plan
Departure
Patient Disposition: Admit
Date of Disposition: 12/10/24
Time of Disposition: 15:27
Presentation/result/management discussed w/ accepting MD/DO: Hospitalist
Discharge Problem:
GI bleed, Pancytopenia
Prescriptions:
No Action
cyanocobalamin (vitamin B-12) 1,000 mcg Tablet
1,000 mcg PO DAILY
therapeutic multivitamin Tablet
1 tab PO DAILY
fenofibrate micronized 134 mg Capsule
134 mg PO DAILY
ascorbic acid (vitamin C) [Vitamin C] 500 mg Tablet
500 mg PO DAILY
rosuvastatin [Crestor] 40 mg Tablet
40 mg PO QPM
empagliflozin 25 mg Tablet
12.5 mg PO DAILY
Patient Comments:
GET FROM THE [facility]
EB-N5 DR 35 mg-3 mg- 2 mg-62.5 mcg Capsule,Delayed Release(Dr/Ec)
1 cap PO BID
metoprolol succinate 25 MG tablet extended release 24 hr
25 mg PO DAILY
prochlorperazine maleate 10 mg Tablet
10 mg PO Q8HPRN PRN (Reason: nausea)
acyclovir 400 mg Tablet
400 mg PO BID
voriconazole 200 mg Tablet
200 mg PO Q12H
tramadol 50 mg Tablet
50 mg PO Q6HPRN PRN (Reason: MODERATE PAINS)
levofloxacin 500 mg Tablet
500 mg PO DAILY
Eye [place] Advantage 550-250-2.5-0.5 kh-oahg-tb-mg Capsule
1 cap PO TID
clotrimazole 10 mg Mike
10 mg MUCOUS MEMBRANE QID
dexamethasone 0.5 mg/5 mL Elixir
0.5 mg PO DIRECTED
Rx Instructions:
patient 5ml swish and spit three times a day
Referrals:
NONE,* [Family Provider, Internal Medicine]
Interventions
Interventions:
*Risk Screen - Suicide Last Done: 12/10/24 13:20
*General Assessment Last Done: 12/10/24 13:20
*ED- Fall Risk Assessment Last Done: 12/10/24 13:20
*ED COVID-19 Vaccine History Last Done: 12/10/24 15:33
Discharge Date and Time
Print Language: CZECH
[2024-12-10 15:19] LABS: INR 1.27; PT 16.5 Sec (11.4-14.6)
[2024-12-10 15:20] LABS: APTT 45.0 Sec (23.4-35.0)
[2024-12-10] MEDS: PROTONIX IV 80 MG IV (15:31)
--- NOTE | 2024-12-10 15:39 | HPS.HSE ---
Family Physician
-
Family Physician: * NONE
Chief Complaint
-
abnormal out patient labs
History of Present Illness
Patient is a 74-year-old male with past medical history significant for AML, CAD, DM-II, HLD and HTN who presented to [facility] ED for evaluation of abnormal out patient labs. Patient reports he was at [place] this morning for his scheduled chemo when
they recommended he come to ED for evaluation. He reports he received his scheduled chemo and had reported to them that yesterday he was constipated and finally had a bowel movement causing a hemorrhoid to bleed. He reports bleeding was significant,
bright red and stopped sometime early this morning. He also complains of difficulty urinating. Patient presents lethargic and dozes to sleep between questions at assessment. Patient denies any fever, chills, cough, shortness of breath, chest pain,
nausesa, vomiting or diarrhea.
Medical History
Past Medical History
Past Medical History: Reports Other
Additional Past Medical History:
AML
CAD
DM-II
HLD
HTN
Past Surgical History: Reports Other
Additional Past Surgical History:
cardiac stent
Social History
Tobacco: Former Smoker
Alcohol: None
Drug: None
Personal:
Living: With Family
Family History
Family History: Not pertinent
Allergies / Home Medications
Allergies reflects when Allergies were last updated in [facility].
Home Medications with original date entered in [facility]
Allergy/Medication List:
Allergies
Allergy/AdvReac Type Severity Reaction Status Date / Time
amoxicillin Allergy Unknown Verified 12/08/24 09:34
sulfamethoxazole (From Allergy Unknown Verified 12/08/24 09:34
Septra)
trimethoprim (From Septra) Allergy Unknown Verified 12/08/24 09:34
Home Medications
B6 35 mg-B9 3 mg-B12 2 mg-D3 62.5 mcg-ALA 300 mg capsule,delay release (EB-N5 DR) 1 cap PO BID Supplement 10/08/24
ascorbic acid (vitamin C) 500 mg tablet (Vitamin C) 500 mg PO DAILY Supplement 10/08/24
cyanocobalamin (vitamin B-12) 1,000 mcg tablet 1,000 mcg PO DAILY Supplement 10/08/24
empagliflozin 25 mg tablet 12.5 mg PO DAILY Diabetes 10/08/24
fenofibrate micronized 134 mg capsule 134 mg PO DAILY High Cholesterol 10/08/24
metoprolol succinate 25 mg tablet,extended release 24 hr 25 mg PO DAILY Blood Pressure 10/08/24
rosuvastatin 40 mg tablet (Crestor) 40 mg PO QPM High Cholesterol 10/08/24
therapeutic multivitamin 1 tab PO DAILY Supplement 10/08/24
acyclovir 400 mg tablet 400 mg PO BID Infection 11/11/24
prochlorperazine maleate 10 mg tablet 10 mg PO Q8HPRN PRN nausea 11/11/24
voriconazole 200 mg tablet 200 mg PO Q12H Infection 11/11/24
levofloxacin 500 mg tablet 500 mg PO DAILY Infection 12/04/24
omega3 550 fm-fsr-uxv-D3 250 unit-lutein 2.5 mg-zeaxant 0.5 mg capsule ([place] Advantage) 1 cap PO TID Supplement 12/04/24
tramadol 50 mg tablet 50 mg PO Q6HPRN PRN MODERATE PAINS 12/04/24
clotrimazole 10 mg vipin 10 mg mucous membrane QID mouth sores 12/10/24
dexamethasone 0.5 mg/5 mL oral elixir 0.5 mg PO DIRECTED mouth sores 12/10/24
Review of Systems
-
History Source: Patient
Constitutional: Reports Fatigue
EENT: Reports No Symptoms
Respiratory: Reports No Symptoms
Cardiac: Reports No Symptoms
Abdomen/GI: Reports Constipated and Other (bleeding hemorrhoid)
: Reports Difficulty Voiding
Musculoskeletal: Reports No Symptoms
Skin: Reports No Symptoms
Neurological: Reports No Symptoms
Endocrine: Reports No Symptoms
Hematologic/Lymphatic: Reports No Symptoms
Psych: Reports No Symptoms
Physical Exam
Vital Signs
Vital Signs
Temp Pulse Resp BP Pulse Ox
98.3 F 85 29 108/43 98
12/10/24 13:20 12/10/24 15:30 12/10/24 15:30 12/10/24 15:07 12/10/24 15:30
Physical Exam
General: Well Developed, Well Nourished and No Apparent Distress
HEENT: NormoCephalic, Moist mucous membranes and Atraumatic
Respiratory: Clear and Non Labored Respirations
Cardiac: S1/S2 and Regular Rhythm
GI: Soft, Non Tender, Non Distended and Normal Bowel Sounds
Rectal: Hem Positive (per ED assessment )
Musculoskeletal: No Clubbing, No Cyanosis and No Edema
Skin: Warm and IV/Catheter Site
Neuro: AO x 3 and Nonfocal/grossly intact
Psych: Calm
Laboratory Results
-
Laboratory Results
PT 16.5 Sec (11.4-14.6) H 12/10/24 14:54
INR 1.27 12/10/24 14:54
APTT 45.0 Sec (23.4-35.0) H 12/10/24 14:54
Total Bilirubin Cancelled 12/10/24 11:00
AST Cancelled 12/10/24 11:00
ALT Cancelled 12/10/24 11:00
Alkaline Phosphatase Cancelled 12/10/24 11:00
Data Reviewed
-
Lab Data: Labs Reviewed by me
Impression/Plan
-
IMPRESSION/PLAN:
#anemia likely 2/2 chronic anemia with hemorrhoidal bleed
- Admit to telemetry
- Blood consent obtained by ED, scanned into chart
- transfuse 1 unit PRBCs
- trend h/h
- Consult Heme/Onc
#pancytopenia likely 2/2 Hx AML
- transfuse 1 unit platelets
- Blood consent obtained by ED, scanned into chart
- Consult Heme/Onc
#AML
follows with [facility]
- continue acyclovir and voriconazole prophylactically
#DM-II
- AccuCheck AC & HS
- SSI
- hold empagliflozin
#HLD
#CAD
- continue fenofibrate and rosuvastatin
#HTN
- continue metoprolol
Code status: full code
DVT prophylaxis: SCDs
--- NOTE | 2024-12-10 15:50 | EDRN ---
Milagros Hospitalist REFRIGERATION OPERATOR in room w/ pt at this time.
--- NOTE | 2024-12-10 16:30 | EDRN ---
Dr. Lundy in to see pt at this time.
--- NOTE | 2024-12-10 16:35 | EDRN ---
1 unit of platelets (# [id number]) hung at this time to infuse via gravity w/ blood tubing.
--- NOTE | 2024-12-10 16:35 | W.PN.UPDATE ---
Update Note
Progress Note Update
This is an addendum to H&P written by Natasha Ko on 12/10/2024. �Patient seen and examined independently with IUSS ANALYST.
74-year-old male past medical history of hemorrhoids, AML on chemotherapy, constipation, mucocutaneous dermatitis, obstructive sleep apnea on CPAP, hyperlipidemia, diabetes, presenting with abnormal outpatient labs. �Hemoglobin 6.2. �He had bleeding
hemorrhoid throughout the night. �Also difficulty evacuating urine. �He got chemotherapy this morning.
Rectal exam does not show any hemorrhoidal bleeding but does show hemorrhoids and Hemoccult was positive.
Labs show severe pancytopenia with ANC of 0, hemoglobin of 6.2 from 8 previously. �Platelets of 8.
Patient with severe pancytopenia secondary to chemotherapy. �Patient without any signs of infection or sepsis. �Anemia likely secondary to chemo with hemorrhoidal bleeding possibly contributing. �2 units blood transfusion, 1 unit platelet
transfusion. �Protonix 40 twice daily. �Would not be candidate for EGD at this time due to severe thrombocytopenia. �Oncology consulted. �Will defer GI evaluation for now.
--- NOTE | 2024-12-10 17:03 | EDRN ---
Pt has not voided since arrival in ER.
--- NOTE | 2024-12-10 17:17 | EDRN ---
Pt napping off and on at this time.
--- NOTE | 2024-12-10 17:34 | EDRN ---
Platelets unit completed infusing at this time.
--- NOTE | 2024-12-10 18:20 | EDRN ---
Unable to scan Product Bar Code. Called blood bank and was told w/ CMV IRR RBCs product # does not scan and staff needs to use pink paper for transfusion. Blood bank tech told me this and repeated it to Cecily doctor of osteopathy who checked blood w/ dawood RN.
First unit of RBC (#[id number]) hung to infuse at this time.
[2024-12-10] MEDS: NOVOLOG FLEXPEN-LOW RESISTANCE SC (20:20)
--- NOTE | 2024-12-10 20:34 | PTCARENOTE ---
Pt admitted to rm 320 and was pulled over from stretcher to bed. pt denies dizziness. Stood at bedside to urinate into BSC. No clean catch obtained so will obtain urine sample next time pt urinates. Pt aaox3, no c/o pain, and VSS. Will send for
second unit of PRBCs. Plan of care ongoing.
[2024-12-10] MEDS: PROTONIX IV 40 MG IV (21:06)
[2024-12-10] MEDS: OCUVITE SOFTGEL 1 CAP PO (21:07)
[2024-12-10] MEDS: NSS (PRESERVATIVE FREE) 10 ML IV (21:07)
[2024-12-10] MEDS: DECADRON 0.5 MG PO (21:08)
[2024-12-10] MEDS: ZOVIRAX 400 MG PO (21:11)
[2024-12-10] MEDS: CRESTOR 40 MG PO (21:11)
[2024-12-10] MEDS: VFEND 200 MG PO (21:11)
[2024-12-10] MEDS: MYCELEX TROCHE 10 MG PO (21:11)
[2024-12-10] MEDS: TYLENOL 650 MG PO (22:07)
[2024-12-10 22:23] LABS: Glucose - Point of Care 98 mg/dl (70-99)
[2024-12-11] VITALS (7 sets, daily range): BP systolic 115–152; BP diastolic 57–69
[2024-12-11 03:35] LABS: Urine Character Clear (Clear)
[2024-12-11 03:44] LABS: Hematocrit 24.6 % (39.0-52.0); Hemoglobin 8.7 g/dL (13.0-18.0); Mean Corp Hgb Conc. 35.4 g/dL (33.0-37.0); Mean Corpuscular Volume 87.5 fL (80.0-94.0); Platelet Count 9 10^3/uL (130-400); Red Cell Dist. Width 16.7 % (11.5-14.5)
--- NOTE | 2024-12-11 04:34 | PTCARENOTE ---
2nd unit of PRBCs finished infusing at 0035. REFRIGERATION PERSON asked if okay to skip 0144 H&H and to draw morning labs since too early to draw after blood. Stated okay to get morning labs. Labs drawn around 0300. Critical WBC and plts sent to REFRIGERATION PERSON.
Pt urinated 250 mls at beginning of shift and 100mls at 0330. Around 0400, pt called to urinate again. Pt unable to urinate, bladder scanned for 560mls. Pt straight cathed for 580mls of clear jose c urine. Plan of care ongoing.
[2024-12-11 04:54] LABS: Urine White Cell 0-2 /HPF (0-5)
--- NOTE | 2024-12-11 07:14 | W.PN.HOSP.TC ---
Today's Communication/Plan
-
Empiric merrem
neutropenic precautions
transfusions as per Hematology
ID eval
Follow Blood Cultures
Nystatin Swish
Magic Mouthwash
Anusol HS, Preparation H prn
Bowel Regimen
Monitor CBC
Assessment / Plan
Assessment / Plan
Physical Exam
General: No acute distress, resting comfortably in bed
HEENT: NormoCephalic, Moist mucous membranes and Atraumatic
Respiratory: Clear and Non Labored Respirations
Cardiac: S1/S2 and Regular Rhythm
GI: Soft, Non Tender, Non Distended and Normal Bowel Sounds
Musculoskeletal: No Clubbing, No Cyanosis and No Edema
Skin: Pallor
Neuro: AO x 3 conversant coherent
Psych: Calm
74M AML CAD DMII HTN HLD referred for evaluation severe anemia. Neutropenic, patient developed fever overnight concerning for possible sepsis. Started on empiric abx
#Neutropenic Fever
Empiric abx merrem, vanc discontinued with neg MRSA screen
ID eval
Neutropenic precautions
blood cultures NGTD
urinalysis not suggestive UTI
CXR no acute abn's
trend temp
Tylenol prn
#anemia likely 2/2 chronic anemia with hemorrhoidal bleed
# Acute Blood Loss Anemia
#Thrombocytopenia
#pancytopenia likely 2/2 Hx AML
- Admit to telemetry
- Blood consent obtained by ED, scanned into chart
- transfused 2 unit PRBCs with appropriate response noted
- transfused 1 Plt
- trend h/h Plt
- follows with [facility]
- Consult Heme/Onc appreciated transfuse if fever Plt<20 or if bleeding Plt<50
- continue acyclovir and voriconazole prophylactically
#Oral Thrush, ulcers
magic mouthwash
Nystatin Swish
#Hemorrhoids
Preparation H ointment Q6HPRN
Anusol suppository HS
#Acute Urinary Retention
Hernandez placed 12/11/24
#DM-II
- AccuCheck AC & HS
- SSI
- hold empagliflozin
#HLD
#CAD
- continue fenofibrate and rosuvastatin
#HTN
- continue metoprolol
Code status: full code
DVT prophylaxis: SCDs
Discussed with patient and patient's Nickie
I spent a total of 55 minutes with the patient or on the floor. More than 50% of this time involved counseling and coordination of care.
Anticipated Discharge: 24 - 48 hours
Subjective/Interval History
-
Date of Service: December 11, 2024
No acute distress resting comfortably in bed. Stable respiratory status on room air. Acute urinary retention required Hernandez. Patient also endorses constipation and bleeding hemmorrhoids.
Objective Data
-
Labs:
Laboratory Results
12/10/24 12/10/24 12/10/24
19:44 21:00 22:49
WBC Cancelled
Hgb Cancelled Cancelled
Hct Cancelled Cancelled
Plt Count Cancelled
Sodium Cancelled
Potassium Cancelled
Chloride Cancelled
Carbon Dioxide Cancelled
BUN Cancelled
Creatinine Cancelled
Glucose Cancelled
Calcium Cancelled
Total Bilirubin Cancelled
AST Cancelled
ALT Cancelled
Alkaline Phosphatase Cancelled
12/11/24 12/11/24
01:44 02:57
WBC 0.6 L*
Hgb Cancelled 8.7 L D
Hct Cancelled 24.6 L
Plt Count 9 L*
Sodium
Potassium
Chloride
Carbon Dioxide
BUN
Creatinine
Glucose
Calcium
Total Bilirubin
AST
ALT
Alkaline Phosphatase
Vital Signs:
Vital Signs
Temp Pulse Resp BP Pulse Ox
98.1 F 69 16 138/57 97
12/11/24 03:08 12/11/24 03:08 12/11/24 03:08 12/11/24 03:08 12/11/24 03:08
I&O
12/10/24 12/11/24 12/12/24
06:59 06:59 06:59
Intake Total 515 / 515
Output Total 930 / 930
Balance -415 / -415
[2024-12-11 07:57] LABS: Glucose - Point of Care 88 mg/dl (70-99)
[2024-12-11] MEDS: TRICOR 145 MG PO (08:01)
[2024-12-11] MEDS: NOVOLOG FLEXPEN-LOW RESISTANCE SC ×2 (08:01→11:57)
[2024-12-11] MEDS: THERAGRAN 1 TABLET PO (08:01)
[2024-12-11] MEDS: VITAMIN C 500 MG PO (08:01)
[2024-12-11] MEDS: DECADRON 0.5 MG PO ×3 (08:01→21:06)
[2024-12-11] MEDS: ZOVIRAX 400 MG PO ×2 (08:01→21:05)
[2024-12-11] MEDS: MAGIC OR MIRACLE MOUTHWASH 5 ML PO ×4 (08:01→23:11)
[2024-12-11] MEDS: OCUVITE SOFTGEL 1 CAP PO ×2 (08:02→21:04)
[2024-12-11] MEDS: MYCELEX TROCHE 10 MG PO ×4 (08:02→21:04)
[2024-12-11] MEDS: VFEND 200 MG PO ×2 (08:02→21:05)
[2024-12-11] MEDS: LEVAQUIN 500 MG PO (08:02)
[2024-12-11] MEDS: VITAMIN B-12 1000 MCG PO (08:02)
[2024-12-11] MEDS: TOPROL XL 25 MG PO (08:03)
[2024-12-11] MEDS: NSS (PRESERVATIVE FREE) 10 ML IV ×2 (08:03→21:07)
[2024-12-11] MEDS: PROTONIX IV 40 MG IV ×2 (08:03→21:07)
--- NOTE | 2024-12-11 09:22 | CON.ONC ---
Documented by User: MELINDA Mcgowan 12/11/24 16:21
Consultation
-
Date Consultation Requested: 12/11/24
Date Consultation Performed: 12/11/24
Requesting Provider: Barbi Thakkar
Performing Provider: Dr. Shon Ren
Reason for Consultation: AML, pancytopenia
Impression
Impression
AML not in remission -C2 vidaza/venetoclex
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
neutropenic fever
stomatitis
Plan
Plan
neutropenic precautions, blood culture, urine culture, ID consult -d/w hospitalist who plans to start empiric abx
CMV negative, irradiated products
transfuse Hgb <7 or as needed for sxs anemia
transfuse platelets <20 if febrile, <50 if bleeding
avoid nsaids, antiplatelet, anticoagulation for platelet count <50
Continue Gelclair, magic mouth wash, and mycelex vipin
Continue antiinfectives ppx vori, acyclovir -will consider resumption of levaquin after course of abx for NF complete
Daily CBC with diff
Has OP follow up with Dr. Genao 12/30/2024
Patient History
History of Present Illness
74yo M who presented with rectal bleeding. He has chronic pancytopenia from his AML. He was straining to move his bowels resulting in 'significant' rectal bleeding from a hemorrhoid. He also complains of difficulty urinating. He denies fever,
chills, cough, sob at rest, chest pain, palpations, nausea or vomiting. He received C2D4 decitabine on 12/10/2024. He continues venetoclax 200mg daily. He did have residual blasts after cycle 1. Intial evalulation was notable for Tmax 101F, no
hypoxia or hypotension. WBC 0.4, Hgb 6.2, platelet count 8000. He has no imaging or cultures to review since admission. He was admitted and transfused with 2UPRBC and 1U SDP.
at bedside provided with updates and questions answered.
Past-Medical/Surgical History
PMH CAD, DM2, HTN
PSH cardiac stent
Social former smoker, denies ETOH, retired teacher special ed, lives with . denies recreational drugs
Family denies malignancy
Patient Medication
�Medication �Instructions �Recorded �Confirmed �Last Taken �Type
B6 35 mg-B9 3 mg-B12 2 mg-D3 62.5 1 cap PO BID Supplement 10/08/24 12/10/24 12/10/24 History
mcg-ALA 300 mg capsule,delay
release (EB-N5 )
ascorbic acid (vitamin C) 500 mg 500 mg PO DAILY Supplement 10/08/24 12/10/24 12/10/24 History
tablet (Vitamin C)
cyanocobalamin (vitamin B-12) 1,000 mcg PO DAILY Supplement 10/08/24 12/10/24 12/10/24 History
1,000 mcg tablet
empagliflozin 25 mg tablet 12.5 mg PO DAILY Diabetes 10/08/24 12/10/24 12/10/24 History
fenofibrate micronized 134 mg 134 mg PO DAILY High Cholesterol 10/08/24 12/10/24 12/10/24 History
capsule
metoprolol succinate 25 mg 25 mg PO DAILY Blood Pressure 10/08/24 12/10/24 12/10/24 History
tablet,extended release 24 hr
rosuvastatin 40 mg tablet (Crestor) 40 mg PO QPM High Cholesterol 10/08/24 12/10/24 12/09/24 History
therapeutic multivitamin 1 tab PO DAILY Supplement 10/08/24 12/10/24 12/10/24 History
acyclovir 400 mg tablet 400 mg PO BID Infection 11/11/24 12/10/24 12/10/24 History
prochlorperazine maleate 10 mg 10 mg PO Q8HPRN PRN nausea 11/11/24 12/10/24 Unknown History
tablet
voriconazole 200 mg tablet 200 mg PO Q12H Infection 11/11/24 12/10/24 12/10/24 History
levofloxacin 500 mg tablet 500 mg PO DAILY Infection 12/04/24 12/10/24 12/10/24 History
omega3 550 wt-qsb-dlq-D3 250 1 cap PO TID Supplement 12/04/24 12/10/24 12/10/24 History
unit-lutein 2.5 mg-zeaxant 0.5 mg
capsule ([place] Advantage)
tramadol 50 mg tablet 50 mg PO Q6HPRN PRN MODERATE PAINS 12/04/24 12/10/24 Unknown History
clotrimazole 10 mg vipin 10 mg mucous membrane QID mouth 12/10/24 12/10/24 Unknown History
sores
dexamethasone 0.5 mg/5 mL oral 0.5 mg PO DIRECTED mouth sores 12/10/24 12/10/24 Unknown History
elixir
Active Medications
Generic Name Dose Route Start Last Admin
Trade Name Freq PRN Reason Stop Dose Admin
Acetaminophen 650 mg 12/10/24 22:01
Acetaminophen 325 Mg Tablet PO 01/07/25 22:00
Q6HPRN PRN
mild pain/ fever>100.5F
Acyclovir Sodium 400 mg 12/10/24 20:00 12/11/24 08:01
Acyclovir Sodium 200 Mg Capsule PO 12/20/24 19:59 400 mg
BID AIDEN Administration
Ascorbic Acid 500 mg 12/11/24 08:00 12/11/24 08:01
Ascorbic Acid 500 Mg Tablet PO 01/08/25 07:59 500 mg
DAILY AIDEN Administration
Clotrimazole 10 mg 12/10/24 22:00 12/11/24 08:02
Clotrimazole 10 Mg Vipin PO 01/07/25 21:59 10 mg
QID AIDEN Administration
Cyanocobalamin 1,000 mcg 12/11/24 08:00 12/11/24 08:02
Cyanocobalamin 1,000 Mcg Tablet PO 01/08/25 07:59 1,000 mcg
DAILY AIDEN Administration
Dexamethasone 0.5 mg 12/10/24 22:00 12/11/24 08:01
Dexamethasone Oral Solution (1 Mg/10 Ml) Cup PO 01/07/25 21:59 0.5 mg
TID AIDEN Administration
Dextrose 12.5 grams 12/10/24 19:44
Dextrose 50% (0.5 Grams/Ml) 50 Ml Syringe IV 01/07/25 19:43
[id number] PRN
hypoglycemia
Protocol
Fenofibrate 145 mg 12/11/24 08:00 12/11/24 08:01
Fenofibrate 145 Mg Tablet PO 01/08/25 07:59 145 mg
DAILY AIDEN Administration
Glucagon 1 mg 12/10/24 19:44
Glucagon 1 Mg Vial IM 01/07/25 19:43
PRN PRN
hypoglycemia
Protocol
Insulin Aspart 0 units 12/10/24 19:44 12/11/24 08:01
Insulin Aspart Low Resistance 300 Units/3 Ml Pen.Injctr SC 01/07/25 19:43 Not Given
AC AIDEN
Protocol
Levofloxacin 500 mg 12/11/24 08:00 12/11/24 08:02
Levofloxacin 500 Mg Tablet PO 500 mg
DAILY AIDEN Administration
Metoprolol Succinate 25 mg 12/11/24 08:00 12/11/24 08:03
Metoprolol 25 Mg Extended Release Tablet PO 01/08/25 07:59 25 mg
DAILY AIDEN Administration
Multi-Ingredient Mouthwash/Gargle 5 ml 12/11/24 07:30 12/11/24 08:01
Magic (Miracle) Mouthwash 90 Ml Bottle PO 5 ml
ACHS AIDEN Administration
Multi-Ingredient Mouthwash/Gargle 5 ml 12/10/24 22:15
Magic (Miracle) Mouthwash 90 Ml Bottle PO
BIDPRN PRN
mouth pain
Multivitamins Therapeutic 1 tablet 12/11/24 08:00 12/11/24 08:01
Multivitamin Tablet PO 01/08/25 07:59 1 tablet
DAILY AIDEN Administration
Pantoprazole Sodium 40 mg 12/10/24 20:00 12/11/24 08:03
Pantoprazole Sodium 40 Mg/10 Ml Vial IV 01/07/25 19:59 40 mg
BID AIDEN Administration
Prochlorperazine Maleate 10 mg 12/10/24 19:44
Prochlorperazine 10 Mg Tablet PO 01/07/25 19:43
Q8HPRN PRN
nausea
Rosuvastatin Calcium 40 mg 12/10/24 19:44 12/10/24 21:11
Rosuvastatin (Crestor) 40 Mg Tablet PO 01/07/25 19:43 40 mg
QPM AIDEN Administration
Sodium Chloride 0 flush 12/10/24 20:00
Sodium Chloride 0.9% (Flush) Syringe IV 01/07/25 19:59
PER PROTOCOL AIDEN
Sodium Chloride 10 ml 12/10/24 21:00 12/11/24 08:03
Sodium Chloride 0.9% (Preservative Free) 10 Ml Vial IV 01/07/25 20:59 10 ml
BID AIDEN Administration
Tramadol HCl 50 mg 12/10/24 19:44
Tramadol Hcl 50 Mg Tablet PO 01/07/25 19:43
Q6HPRN PRN
MODERATE PAINS
Vitamin C/Vitamin E 1 cap 12/10/24 20:30 12/11/24 08:02
Vit C/Vit E/Lutein/Min/Ronks-3 (Ocuvite) Capsule PO 01/07/25 20:29 1 cap
BID AIDEN Administration
Voriconazole 200 mg 12/10/24 20:00 12/11/24 08:02
Voriconazole 200 Mg Tablet PO 12/20/24 19:59 200 mg
Q12H AIDEN Administration
Review of Systems
-
ROS is notable for HPI, otherwise negative
Physical Exam
-
General: Well Developed, Well Nourished, No Apparent Distress and Conversant
HEENT: Other (stomatitis. HOGH); Negative Jaundice
Cardiology: Normal Sinus Rhythm
Pulmonary: Clear
GI: Soft
Extremities: Pulses Present and Edema (b/l LE edema)
Neurology: Non Focal
Skin: Warm
Psych: Calm
Labs
Lab Results
WBC 0.6 10^3/uL (4.8-10.8) L* 12/11/24 02:57
RBC 2.81 10^6/uL (4.70-6.10) L 12/11/24 02:57
Hgb 8.7 g/dL (13.0-18.0) L D 12/11/24 02:57
Hct 24.6 % (39.0-52.0) L 12/11/24 02:57
MCV 87.5 fL (80.0-94.0) 12/11/24 02:57
MCH 31.0 pg (27.0-31.0) 12/11/24 02:57
MCHC 35.4 g/dL (33.0-37.0) 12/11/24 02:57
RDW 16.7 % (11.5-14.5) H 12/11/24 02:57
Plt Count 9 10^3/uL (130-400) L* 12/11/24 02:57
MPV Not Reportable 12/11/24 02:57
Abs Immat Gran (auto) Cancelled 12/10/24 21:00
Absolute Neuts (auto) Cancelled 12/10/24 21:00
Absolute Lymphs (auto) Cancelled 12/10/24 21:00
Absolute Monos (auto) Cancelled 12/10/24 21:00
Absolute Eos (auto) Cancelled 12/10/24 21:00
Absolute Basos (auto) Cancelled 12/10/24 21:00
Immature Gran % Cancelled 12/10/24 21:00
Neutrophils % Cancelled 12/10/24 21:00
Lymphocytes % Cancelled 12/10/24 21:00
Monocytes % Cancelled 12/10/24 21:00
Eosinophils % Cancelled 12/10/24 21:00
Basophils % Cancelled 12/10/24 21:00
Creatinine Cancelled 12/10/24 22:49
Vital Signs
Vital Signs
Temp Pulse Resp BP Pulse Ox
98.8 F 82 18 152/68 97
12/11/24 07:00 12/11/24 07:00 12/11/24 07:00 12/11/24 07:00 12/11/24 07:00

Documented by User: Shon Ren MD 12/11/24 16:48
Plan
Plan
neutropenic precautions, blood culture, urine culture, ID consult -d/w hospitalist who plans to start empiric abx
CMV negative, irradiated products
transfuse Hgb <7 or as needed for sxs anemia
transfuse platelets <20 if febrile, <50 if bleeding
avoid nsaids, antiplatelet, anticoagulation for platelet count <50
Continue Gelclair, magic mouth wash, and mycelex vipin
Continue antiinfectives ppx vori, acyclovir -will consider resumption of levaquin after course of abx for NF complete
Daily CBC with diff
Has OP follow up with Dr. Genao 12/30/2024
Attending: Agree with note and plans as per nurse practitioner. Apparent hemorrhoidal bleed in conjunction with thrombocytopenia. Agree with plans for drain fusion support. Also neutropenic fever has been noted, agree with plans for IV
antibiotics. We will continue to follow.
[2024-12-11 09:41] LABS: Glycohemoglobin (HgbA1c) 6.0 % (4.0-5.6)
--- NOTE | 2024-12-11 10:06 | PHA.VAN.IN ---
Assessment
- Assessment
Renal Function: Appears similar to baseline
Concomitant Antimicrobials: meropenem; chronic acyclovir and voriconazole
AUC Dosing Plan
- Dosing Variables
Dosing Weight (kg): 84
Dosing CrCl (ml/min): 106
Vd coefficient (L/kg): 0.7
- Empiric Dosing
Initial / Loading Dose: 2000mg - administration pending
Maintenance Regimen: Vanc 1250mg Q12H - first dose 2000 then 0600
Estimated AUC (mcg*h/mL): 492
Estimated Peak (mcg*h/mL): 31.7
Estimated Trough (mcg/ml): 12
Estimated Half Life (H): 7.5
- Monitoring
No levels ordered at this time: consider levels in next few days
MRSA Screen: Ordered per protocol
Pharmacokinetics Vancomycin I
- -
Patient Age: 74
Patient Sex: Male
Vancomycin Day #: 1
Indication: Neutropenic Fever
Requesting Provider: Dr. Reis
Pertinent Antimicrobial Allergies:
amoxicillin - unknown
sulfamethoxazole/trimethoprim - unknown
Height / Weight:
Height 5 ft 6 in
Actual Weight 83.824 kg
Pertinent Past Medical History: DM II, AML
- Vital Signs / Lab Results
Temp Pulse Resp BP Pulse Ox
98.8 F 82 18 152/68 97
12/11/24 07:00 12/11/24 07:00 12/11/24 07:00 12/11/24 07:00 12/11/24 07:00
Lab Results - Hematology
12/10/24 12/10/24 12/11/24
11:00 21:00 02:57
WBC Cancelled Cancelled 0.6 L*
Lab Results - Chemistry
12/10/24 12/10/24
11:00 22:49
BUN Cancelled Cancelled
Creatinine Cancelled Cancelled
Estimated Creat Clear Cancelled Cancelled
Albumin Cancelled Cancelled
Lab Results - Urine
12/11/24
02:57
Urine Nitrite (Reflex) Negative
Leukocyte Esterase Rfl Negative
Urine WBC (Reflex) 0-2
Ur Squamous Epith Cells 6-10
Urine Bacteria (Reflex) Few A
[2024-12-11 10:51] LABS: Procalcitonin 0.19 ng/ml (0.0-0.25)
[2024-12-11] MEDS: VANCOCIN 540 MG IV (11:09)
[2024-12-11] MEDS: MERREM 1000 MG IV ×3 (11:14→23:17)
[2024-12-11 11:34] LABS: Glucose - Point of Care 94 mg/dl (70-99)
--- NOTE | 2024-12-11 14:09 | CM ---
Patient seen at bedside
IA completed
Dx: Anemia, pancytopenia, hemorrhoidal bleed
Patient lives with 1 story home, one step to enter w/ grab bar to assist; Bath has walk-in shower w/ seat and grab bar
PLOF: Independent uses a walker, independent with ADL's
DME: Walker, cane, shower conner CPAP, has a glucometer, but does not use it
Denies VN/Rehab
8/ PT rec home health vs. no needs
Denies insecurities
PCP: Paola Lucio
Pharmacy: [facility]
PLAN: home, CM to follow for needs
[2024-12-11] MEDS: STERILE WATER FOR INJECTION 20 ML IV ×2 (16:59→23:17)
[2024-12-11] MEDS: CRESTOR 40 MG PO (16:59)
[2024-12-11 17:07] LABS: Glucose - Point of Care 150 mg/dl (70-99)
[2024-12-11] MEDS: NOVOLOG FLEXPEN-LOW RESISTANCE 1 UNITS SC (17:46)
[2024-12-11] MEDS: MYCOSTATIN ORAL SUSPENSION 5 ML PO ×2 (17:46→21:06)
--- NOTE | 2024-12-11 19:13 | CON.ID ---
Consultation
-
Date/Time Consultation Requested: 12/11/24
Date/Time Consultation Performed: 12/11/24
Performing Provider: Dr Frost
Reason for Consultation: neutroppenic fever in patient with AML
Chief Complaint / Past History
Chief Complaint
admitted with rectal bleed from and fever to 101 hemorrhoids
History of Present Illness
the patient was admitted with rectal bleeding which he states is from his hemorrhoids which was accompanied by fever to 101
Past History
Past Medical History: CAD, Cancer, HTN, Hypercholesterolemia and NIDDM
Past Surgical History: Cardiac (stent placement)
Allergy History:
amoxicillin Allergy (Verified 12/08/24 09:34)
Unknown
sulfamethoxazole (From Septra) Allergy (Verified 12/08/24 09:34)
Unknown
trimethoprim (From Septra) Allergy (Verified 12/08/24 09:34)
Unknown
Medications Reviewed: Yes
Current Antibiotics:
on admission: levofloxacin, Zovirax,Mycelex vipin,Voriconazole,
Social History
Tobacco: Former Smoker
Alcohol: None
Drug: None
Personal:
Living: With Family
Employment: Retired
Family History
Family History: Not Pertinent
Review of Systems
Review of Systems
General: Fever
HEENT: Other (oral ulcerations , stomatitis , thrush)
Endocrine: Weakness and Fatigue
All systems: All other systems were reviewed and were negative
Vital Signs
Temp Pulse Resp BP Pulse Ox
99.3 F 85 18 143/66 99
12/11/24 15:00 12/11/24 15:00 12/11/24 15:00 12/11/24 15:00 12/11/24 15:00
Physical Exam
Physical Exam
Constitutional: No Acute Distress, Well Developed, Comfortable, Acutely Ill, Chronically Ill and Non-toxic
Head: Normocephalic
Eyes: Pupils Equal, Pupils Round, No Conjunctival Hemorrhage and Sclera Anicteric
Pharynx: Benign
Oral: Thrush and Ulcers
Cardiovascular: Regular Rate
Pulmonary: Clear, Symmetric and Non Labored
Gastrointestinal: Soft, Non Tender, Non Distended, Decreased Bowel Sounds, No Rebound and No Guarding
Extremities: Pulses
Skin: Warm and Dry
Wound: None
Neurological: Awake, Alert, Oriented and AO x 3 (gait not observed)
Psychological: Calm (cooperative, pleasant, interactive)
Lab / Diagnostic Study Results
12/11/24 02:57
12/10/24 22:49
Abs Immat Gran (auto) Cancelled 12/10/24 21:00
Absolute Neuts (auto) Cancelled 12/10/24 21:00
Absolute Lymphs (auto) Cancelled 12/10/24 21:00
Absolute Monos (auto) Cancelled 12/10/24 21:00
Absolute Basos (auto) Cancelled 12/10/24 21:00
Immature Gran % Cancelled 12/10/24 21:00
Neutrophils % Cancelled 12/10/24 21:00
Lymphocytes % Cancelled 12/10/24 21:00
Monocytes % Cancelled 12/10/24 21:00
Eosinophils % Cancelled 12/10/24 21:00
Basophils % Cancelled 12/10/24 21:00
PT 16.5 Sec (11.4-14.6) H 12/10/24 14:54
INR 1.27 12/10/24 14:54
Procalcitonin 0.19 ng/ml (0.0-0.25) 12/11/24 10:11
Ur Squamous Epith Cells 6-10 /LPF (Few) 12/11/24 02:57
Microbiology Results
Micro:
12/11/24 15:46 Urine Culture - Pending
Urine
12/11/24 12:57 Nasal Screen MRSA (PCR) - Final
Nose MRSA not detected - performed by PCR methodology.
12/11/24 11:01 Blood Culture - Pending
Blood/Venous
12/11/24 10:12 Blood Culture - Pending
Blood/Venous
Assessment / Plan
1. AML on treatment with patient currently neutropenic with concerning fever
patient is under care of oncology service with appropriate prophylactic antimicrobial medications including Levofloxacin, Acyclovir, Mycelex, Voriconazole
2. Oral ulcers with painful mouth and some interference with oral intake
3. CXR currently normal without respiratory complaint
4. Renal US of concern with 12/09/24 study showing right renal mass of uncertain etiology with benign U/A
5. Rectal bleeding from hemorrhoids
6. Current empiric antibiotic with Merrem
7. Blood cultures pending
8. Urine culture pending
Thank you for calling Infectious Disease Consultation
The ID team will follow with you
Please call us with any questions or concerns
Care Review
Plan reviewed with: Physician (discussed briefly with hospitalist)
Total Time Spent with Patient (in minutes): 55
[2024-12-11] MEDS: TYLENOL 650 MG PO (21:06)
[2024-12-11 21:26] LABS: Glucose - Point of Care 161 mg/dl (70-99)
[2024-12-12] VITALS (15 sets, daily range): BP systolic 111–152; BP diastolic 52–70
[2024-12-12] MEDS: ANUSOL HC 25 MG RECTAL ×2 (02:36→21:11)
--- NOTE | 2024-12-12 05:26 | PTCARENOTE ---
Patient is currently receiving second unit of platelets, BPs elevated at end of first unit, now 152/70, HR 82, RR 16, 100% room air, temp 100.3F oral. Spoke with [employer]OW MANAGER on unit, no interventions for BP at this time, can receive AM dose 25mg metoprolol
when scheduled. Will monitor temperatures. Patient is resting comfortably, call oconnor in reach. No new orders at this time, will monitor.
--- NOTE | 2024-12-12 06:45 | PTCARENOTE ---
Patient received total of 2 units platelets this shift, tolerated well with no interactions noted. No complaints at this time. Resting comfortably in bed with call oconnor in reach.
--- NOTE | 2024-12-12 07:23 | W.PN.HOSP.TC ---
Today's Communication/Plan
-
cont abx as per ID
platelet transfusions, goal plt>20 as per Oncology
bowel regimen, suppository prn
Assessment / Plan
Assessment / Plan
Physical Exam
General: No acute distress, resting comfortably in bed
HEENT: NormoCephalic, Moist mucous membranes and Atraumatic, oral thrush, oral ulcers
Respiratory: Clear and Non Labored Respirations
Cardiac: S1/S2 and Regular Rhythm
GI: Soft, Non Tender, Non Distended and Normal Bowel Sounds
Musculoskeletal: No Clubbing, No Cyanosis and No Edema
Skin: Pallor
Neuro: AO x 3 conversant coherent
Psych: Calm
74M AML CAD DMII HTN HLD referred for evaluation severe anemia. Neutropenic, patient developed fever overnight concerning for possible sepsis. Started on empiric abx
#Neutropenic Fever
Empiric abx merrem, vanc discontinued with neg MRSA screen
ID eval appreciated
Neutropenic precautions
blood cultures NGTD
urinalysis not suggestive UTI
CXR no acute abn's
trend temp
Tylenol prn
#anemia likely 2/2 chronic anemia with hemorrhoidal bleed
# Acute Blood Loss Anemia
#Thrombocytopenia
#pancytopenia likely 2/2 Hx AML
- Admit to telemetry
- Blood consent obtained by ED, scanned into chart
- transfused 2 unit PRBCs with appropriate response noted
- transfused Plt for goal >20 d/t fever
- trend h/h Plt
- follows with [facility]
- Consult Heme/Onc appreciated transfuse if fever Plt<20 or if bleeding Plt<50
- cont home Venclexta (reduced dose d/t pancytopenia and interaction voriconazole) as per Oncology
- continue acyclovir and voriconazole prophylactically
#Oral Thrush, ulcers
magic mouthwash
Nystatin Swish
#Hemorrhoids
Preparation H ointment Q6HPRN
Anusol suppository HS
#Constipation
bowel regimen
prn suppository
#Acute Urinary Retention
Hernandez placed 12/11/24
eventual trial of void prior to discharge
#DM-II
- AccuCheck AC & HS
- SSI
- hold empagliflozin
#HLD
#CAD
- continue fenofibrate and rosuvastatin
#HTN
- continue metoprolol
Code status: full code
DVT prophylaxis: SCDs
I spent a total of 45 minutes with the patient or on the floor. More than 50% of this time involved counseling and coordination of care.
Anticipated Discharge: 24 - 48 hours
Subjective/Interval History
-
Date of Service: December 12, 2024
No acute distress, resting comfortably in bed. Constipation persists.
Objective Data
-
Labs:
Laboratory Results
12/12/24
06:00
WBC Pending
Hgb Pending
Hct Pending
Plt Count Pending
PT Pending
INR Pending
APTT Pending
Sodium Pending
Potassium Pending
Chloride Pending
Carbon Dioxide Pending
BUN Pending
Creatinine Pending
Glucose Pending
Calcium Pending
Total Bilirubin Pending
AST Pending
ALT Pending
Alkaline Phosphatase Pending
Vital Signs:
Vital Signs
Temp Pulse Resp BP Pulse Ox
100.4 F H 87 18 135/67 100
12/12/24 06:45 12/12/24 06:45 12/12/24 06:45 12/12/24 06:45 12/12/24 05:10
I&O
12/11/24 12/12/24 12/13/24
06:59 06:59 06:59
Intake Total 515 / 515 2664 / 2664
Output Total 930 / 930 900 / 900
Balance -415 / -415 1764 / 1764
[2024-12-12 07:54] LABS: Glucose - Point of Care 100 mg/dl (70-99)
[2024-12-12] MEDS: MAGIC OR MIRACLE MOUTHWASH 5 ML PO ×4 (09:02→21:12)
[2024-12-12] MEDS: MYCOSTATIN ORAL SUSPENSION 5 ML PO ×4 (09:02→21:12)
[2024-12-12] MEDS: NOVOLOG FLEXPEN-LOW RESISTANCE SC (09:02)
[2024-12-12] MEDS: DECADRON 0.5 MG PO ×3 (09:03→21:11)
[2024-12-12] MEDS: MERREM 1000 MG IV ×3 (09:03→23:06)
[2024-12-12] MEDS: MIRALAX 17 GRAMS PO (09:03)
[2024-12-12] MEDS: NSS (PRESERVATIVE FREE) 10 ML IV ×2 (09:04→21:11)
[2024-12-12] MEDS: THERAGRAN 1 TABLET PO (09:04)
[2024-12-12] MEDS: STERILE WATER FOR INJECTION 20 ML IV ×3 (09:04→23:07)
[2024-12-12] MEDS: MYCELEX TROCHE 10 MG PO ×4 (09:04→21:10)
[2024-12-12] MEDS: PROTONIX IV 40 MG IV ×2 (09:04→21:11)
[2024-12-12] MEDS: SENOKOT-S 1 TABLET PO ×2 (09:05→21:11)
[2024-12-12] MEDS: TYLENOL 650 MG PO (09:05)
[2024-12-12] MEDS: VITAMIN C 500 MG PO (09:05)
[2024-12-12] MEDS: TRICOR 145 MG PO (09:05)
[2024-12-12] MEDS: ZOVIRAX 400 MG PO ×2 (09:05→21:11)
[2024-12-12] MEDS: VFEND 200 MG PO ×2 (09:05→21:11)
[2024-12-12] MEDS: TOPROL XL 25 MG PO (09:05)
[2024-12-12] MEDS: OCUVITE SOFTGEL 1 CAP PO ×2 (09:05→21:11)
[2024-12-12] MEDS: VITAMIN B-12 1000 MCG PO (09:06)
[2024-12-12 09:54] LABS: Hematocrit 21.8 % (39.0-52.0); Hemoglobin 7.7 g/dL (13.0-18.0); Mean Corp Hgb Conc. 35.3 g/dL (33.0-37.0); Mean Corpuscular Volume 87.2 fL (80.0-94.0); Platelet Count 12 10^3/uL (130-400); Red Cell Dist. Width 16.4 % (11.5-14.5)
[2024-12-12 09:57] LABS: APTT 34.7 Sec (23.4-35.0); INR 1.38; PT 17.3 Sec (11.4-14.6)
[2024-12-12 10:14] LABS: ALT (SGPT) 29 U/L (0-50); AST (SGOT) 39 U/L (17-59); Albumin 2.4 g/dl (3.5-5.0); Alkaline Phosphatase 77 U/L (38-126); Blood Urea Nitrogen 15 mg/dl (9-20); Calcium 7.8 mg/dl (8.4-10.2); Carbon Dioxide 26 mmol/L (22-30); Chloride 105 mmol/L (98-107); Estimated Creatinine Clearance 106 ml/min; Glucose 147 mg/dl (70-99); Iron 78 ug/dl (49-181); Magnesium 1.8 mg/dl (1.6-2.3); Potassium 3.2 mmol/L (3.5-5.1); Sodium 134 mmol/L (135-145); Total Protein 4.8 g/dl (6.3-8.2); eGFR > 60.00
[2024-12-12 10:23] LABS: Total Iron Binding Capacity 152 ug/dl (261-462)
[2024-12-12 11:17] LABS: Folate 13.5 ng/ml (2.76-20); Vitamin B12 875 pg/ml (239-931)
[2024-12-12 11:42] LABS: Glucose - Point of Care 157 mg/dl (70-99)
[2024-12-12] MEDS: POTASSIUM PHOSPHATE 259.0909 MEQ IV (12:07)
[2024-12-12] MEDS: NOVOLOG FLEXPEN-LOW RESISTANCE 1 UNITS SC ×2 (12:08→17:37)
[2024-12-12 12:15] LABS: Ferritin 4990.0 ng/ml (17.9-464.0)
--- NOTE | 2024-12-12 13:19 | W.PN.ONC ---
Today's Communication / Plan
-
Broad spectrum abx
Continue antiinfectives ppx vori, acyclovir -will consider resumption of levaquin after course of abx for NF complete
Follow cultures
Transfuse for hgb <7, platelets <20 -- he is not a transplant candidate, and is not at risk for transfusion-associated GVHD, therefore, he does not need special blood products (only leukoreduced, which is standard practice)
Supportive care for stomatitis
Continue venetoclax, further dose reduced (from 200mg to 100mg/d) this admission in light of interaction with voriconazole and severe pancytopenia
Has OP follow up with Dr. Genao 12/30/2024
Impression
Impression
AML not in remission -C2 vidaza/venetoclex (started 12/07/24)
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
neutropenic fever
stomatitis
hemorrhoid bleeding
Plan
Plan
Broad spectrum abx
Continue antiinfectives ppx vori, acyclovir -will consider resumption of levaquin after course of abx for NF complete
Follow cultures
Transfuse for hgb <7, platelets <20 -- he is not a transplant candidate, and is not at risk for transfusion-associated GVHD, therefore, he does not need special blood products (only leukoreduced, which is standard practice)
Supportive care for stomatitis
Continue venetoclax, further dose reduced (from 200mg to 100mg/d) this admission in light of interaction with voriconazole and severe pancytopenia
Has OP follow up with Dr. Genao 12/30/2024
Subjective/Objective
Subjective/Objective
Vital Signs:
Vital Signs
Temp Pulse Resp BP Pulse Ox
99.2 F 81 16 111/52 95
12/12/24 11:22 12/12/24 11:22 12/12/24 11:22 12/12/24 11:22 12/12/24 11:22
Lab Results:
Laboratory Data
WBC 0.3 10^3/uL (4.8-10.8) L* 12/12/24 09:23
Hgb 7.7 g/dL (13.0-18.0) L 12/12/24 09:23
Plt Count 12 10^3/uL (130-400) L* D 12/12/24 09:23
PT 17.3 Sec (11.4-14.6) H 12/12/24 09:23
INR 1.38 12/12/24 09:23
APTT 34.7 Sec (23.4-35.0) 12/12/24 09:23
eGFR > 60.00 12/12/24 09:23
--- NOTE | 2024-12-12 15:05 | W.PN.ID1 ---
Date of Service
Date of Service: December 12, 2024
Today's Communication
- Continue meropenem for now.
- If blood cx's neg x 48-72 hrs and afebrile, can resume ppx levofloxacin.
Assessment / Plan
# Neutropenic fever
# Rectal bleeding from hemorrhoids, resolved
# Recent dx of AML on cycle 2 Vidaza, Venetoclax, ppx acyclovir, levofloxacin, voriconazole
# Prolonged neutropenia due to AML
# Oral stomatitis associated with AML
# Pancytopenia, frequent transfusions
- CXR neg opacity
-Blood cx neg to date
- Ucx neg
- Fever trending down
- Continue meropenem for now.
- If blood cx's neg x 48-72 hrs and afebrile, can resume ppx levofloxacin.
- Follow temps.
Chief Complaint
-: Fever
Subjective / Review of Systems
No further rectal bleed. No cough/SOB. Mouth sores stable.
No diarrhea/abd pain.
Vital Signs / Physical Exam
Vital Signs
Vital Signs
Temp Pulse Resp BP Pulse Ox
97.9 F 71 15 121/59 99
12/12/24 14:56 12/12/24 14:56 12/12/24 14:56 12/12/24 14:56 12/12/24 14:56
Selected Entries
12/12/24
06:45
Temp 100.4 F H
Physical Exam
Constitutional: No Acute Distress and Comfortable
Eyes: Sclera Anicteric
Oropharyngeal: Ulcers (tongue and mucosa)
Cardiovascular: Regular Rate and S1/S2
Pulmonary: Clear
Gastrointestinal: Soft, Non Tender, Non Distended and Normal Bowel Sounds
Extremities: Edema (BLE)
Skin: Negative Rash
Neurological: AO x 3 and Other (Drowsy)
Objective Data
Lab Data
Lab Results
12/12/24 09:23
12/12/24 09:23
PT 17.3 Sec (11.4-14.6) H 12/12/24 09:23
INR 1.38 12/12/24 09:
APTT 34.7 Sec (23.4-35.0) 12/12/24 09:
Estimated Creat Clear 106 ml/min 12/12/24 09:23
Total Bilirubin 0.9 mg/dl (0.2-1.3) 12/12/24 09:
AST 39 U/L (17-59) 12/12/24 09:23
ALT 29 U/L (0-50) 12/12/24 09:23
Alkaline Phosphatase 77 U/L (38-126) 12/12/24 09:23
Most recent labs reviewed.
Micro Results:
12/11/24 15:46 Urine Culture - Preliminary
Urine NO GROWTH
12/11/24 11:01 Blood Culture - Preliminary
Blood/Venous No Growth in 24 hours- Final report to follow
12/11/24 10:12 Blood Culture - Preliminary
Blood/Venous No Growth in 24 hours- Final report to follow
12/11/24 12:57 Nasal Screen MRSA (PCR) - Final
Nose MRSA not detected - performed by PCR methodology.
12/11/24 CXR: No areas of airspace disease. Tiny left pleural effusion.
[2024-12-12 16:49] LABS: Glucose - Point of Care 188 mg/dl (70-99)
[2024-12-12] MEDS: CRESTOR 40 MG PO (17:32)
[2024-12-12] MEDS: NON-FORMULARY ITEM 1 UNIT PO (17:34)
--- NOTE | 2024-12-12 17:55 | PTCARENOTE ---
PT received one units of PLTs this shift. see TAR. pt educated about transfusion reactions, pt had no SE. Prior to receiving blood, the and were not clear on why he was getting transfusion. This nurse spent considerable time
educating on SE of chemotherapy on WBC, HG and pLT. both verbalized an understanding and thankful
--- NOTE | 2024-12-12 20:51 | PTCARENOTE ---
Assumed care of patient from previous RN. Patient alert and awake, oriented, [place]. C/o being cold and requesting a second extra blanket at this time, one provided to patient during rounding. VSS, temp 99.5F oral. No c/o pain at this time. Still
without BM -- patient appears to be unsure of exact date of last BM, but looking at 4-5 days now. Will provide PRN meds per patient request. Call oconnor in reach, will continue to monitor.
[2024-12-12 21:13] LABS: Glucose - Point of Care 170 mg/dl (70-99)
[2024-12-12] MEDS: MILK OF MAGNESIA 30 ML PO (23:06)
[2024-12-13] VITALS (9 sets, daily range): BP systolic 106–139; BP diastolic 51–72
[2024-12-13 05:59] LABS: Hematocrit 21.2 % (39.0-52.0); Hemoglobin 7.6 g/dL (13.0-18.0); Mean Corp Hgb Conc. 35.8 g/dL (33.0-37.0); Mean Corpuscular Volume 87.6 fL (80.0-94.0); Nucleated Red Blood Cells % 0 % (-); Platelet Count 9 10^3/uL (130-400); Red Cell Dist. Width 16.0 % (11.5-14.5)
[2024-12-13 06:05] LABS: Blood Urea Nitrogen 17 mg/dl (9-20); Calcium 8.0 mg/dl (8.4-10.2); Carbon Dioxide 30 mmol/L (22-30); Chloride 105 mmol/L (98-107); Estimated Creatinine Clearance 106 ml/min; Glucose 124 mg/dl (70-99); Magnesium 2.0 mg/dl (1.6-2.3); Potassium 3.7 mmol/L (3.5-5.1); Sodium 135 mmol/L (135-145); eGFR > 60.00
[2024-12-13 07:56] LABS: Glucose - Point of Care 108 mg/dl (70-99)
[2024-12-13] MEDS: MAGIC OR MIRACLE MOUTHWASH 5 ML PO ×4 (08:53→21:40)
[2024-12-13] MEDS: VITAMIN C 500 MG PO (08:54)
[2024-12-13] MEDS: THERAGRAN 1 TABLET PO (08:54)
[2024-12-13] MEDS: NOVOLOG FLEXPEN-LOW RESISTANCE SC ×3 (08:54→18:13)
[2024-12-13] MEDS: TOPROL XL 25 MG PO (08:54)
[2024-12-13] MEDS: TYLENOL 650 MG PO (08:54)
[2024-12-13] MEDS: OCUVITE SOFTGEL 1 CAP PO ×2 (08:55→21:38)
[2024-12-13] MEDS: ZOVIRAX 400 MG PO ×2 (08:55→21:36)
[2024-12-13] MEDS: MYCOSTATIN ORAL SUSPENSION 5 ML PO ×4 (08:55→21:39)
[2024-12-13] MEDS: TRICOR 145 MG PO (08:55)
[2024-12-13] MEDS: VFEND 200 MG PO ×2 (08:55→21:36)
[2024-12-13] MEDS: PROTONIX IV 40 MG IV (08:55)
[2024-12-13] MEDS: MYCELEX TROCHE 10 MG PO ×4 (08:55→21:37)
[2024-12-13] MEDS: MERREM 1000 MG IV ×2 (08:56→16:12)
[2024-12-13] MEDS: STERILE WATER FOR INJECTION 20 ML IV ×2 (08:56→16:12)
[2024-12-13] MEDS: SENOKOT-S PO (08:56)
[2024-12-13] MEDS: NSS (PRESERVATIVE FREE) 10 ML IV (08:56)
[2024-12-13] MEDS: DECADRON 0.5 MG PO ×3 (08:56→21:38)
[2024-12-13] MEDS: MIRALAX PO (08:57)
[2024-12-13] MEDS: VITAMIN B-12 1000 MCG PO (08:57)
--- NOTE | 2024-12-13 09:51 | W.PN.HOSP.TC ---
Today's Communication/Plan
-
cont abx as per ID
platelet transfusions, goal plt>20 as per Oncology
bowel regimen
Trial of void tomorrow
Assessment / Plan
Assessment / Plan
Physical Exam
General: No acute distress, resting comfortably in bed
HEENT: NormoCephalic, Moist mucous membranes and Atraumatic, oral thrush, oral ulcers
Respiratory: Clear and Non Labored Respirations
Cardiac: S1/S2 and Regular Rhythm
GI: Soft, Non Tender, Non Distended and Normal Bowel Sounds
Musculoskeletal: No Clubbing, No Cyanosis and No Edema
Skin: Pallor
Neuro: AO x 3 conversant coherent
Psych: Calm
74M AML CAD DMII HTN HLD referred for evaluation severe anemia. Neutropenic, patient developed fever overnight concerning for possible sepsis. Started on empiric abx
#Neutropenic Fever
Empiric abx merrem, vanc discontinued with neg MRSA screen
ID eval appreciated
Neutropenic precautions
blood cultures NGTD
urinalysis not suggestive UTI
CXR no acute abn's
trend temp
Tylenol prn
#anemia likely 2/2 chronic anemia with hemorrhoidal bleed
# Acute Blood Loss Anemia
#Thrombocytopenia
#pancytopenia likely 2/2 Hx AML
- Admit to telemetry
- Blood consent obtained by ED, scanned into chart
- transfused 2 unit PRBCs with appropriate response noted
- transfused Plt for goal >20 d/t fever
- trend h/h Plt
- follows with [facility]
- Consult Heme/Onc appreciated transfuse if fever Plt<20 or if bleeding Plt<50
- cont home Venclexta (reduced dose d/t pancytopenia and interaction voriconazole) as per Oncology
- continue acyclovir and voriconazole prophylactically
#Oral Thrush, ulcers
magic mouthwash
Nystatin Swish
#Hemorrhoids
Preparation H ointment Q6HPRN
Anusol suppository HS
#Constipation
bowel regimen
prn suppository
#Acute Urinary Retention
Hernandez placed 12/11/24
eventual trial of void prior to discharge
#DM-II
- AccuCheck AC & HS
- SSI
- hold empagliflozin
#HLD
#CAD
- continue fenofibrate and rosuvastatin
#HTN
- continue metoprolol
Code status: full code
DVT prophylaxis: SCDs
I spent a total of 45 minutes with the patient or on the floor. More than 50% of this time involved counseling and coordination of care.
Anticipated Discharge: 24 - 48 hours
Subjective/Interval History
-
Date of Service: December 13, 2024
No acute distress, resting comfortably in bed. Fever resolved at this time
Objective Data
-
Labs:
Laboratory Results
12/13/24
05:06
WBC 0.4 L*
Hgb 7.6 L
Hct 21.2 L
Plt Count 9 L* D
Sodium 135
Potassium 3.7
Chloride 105
Carbon Dioxide 30
BUN 17
Creatinine 0.5 L
Glucose 124 H
Calcium 8.0 L
Vital Signs:
Vital Signs
Temp Pulse Resp BP Pulse Ox
97.9 F 81 18 139/66 98
12/13/24 07:00 12/13/24 07:00 12/13/24 07:00 12/13/24 07:00 12/13/24 07:00
I&O
12/12/24 12/13/24 12/14/24
06:59 06:59 06:59
Intake Total 2664 / 2664 1645 / 1645
Output Total 900 / 900 1300 / 1300
Balance 1764 / 1764 345 / 345
[2024-12-13 11:43] LABS: Glucose - Point of Care 140 mg/dl (70-99)
--- NOTE | 2024-12-13 12:39 | W.PN.ID1 ---
Date of Service
Date of Service: December 13, 2024
Today's Communication
Continue antibiotics.
Assessment / Plan
# Neutropenic fever
# Rectal bleeding from hemorrhoids, resolved
# Recent dx of AML on cycle 2 Vidaza, Venetoclax, ppx acyclovir, levofloxacin, voriconazole
# Prolonged neutropenia due to AML
# Oral stomatitis associated with AML
# Pancytopenia, frequent transfusions
- CXR neg opacity
- Blood cx remain neg to date
- Ucx neg
- Fever trending down
- Continue meropenem for now.
- If blood cx's neg x additional 24-48 hrs and pt remains afebrile, can resume ppx levofloxacin.
- Follow temps.
Chief Complaint
-: Fever
Subjective / Review of Systems
Review of Systems: No Fever and No Chills
Vital Signs / Physical Exam
Vital Signs
Vital Signs
Temp Pulse Resp BP Pulse Ox
98.2 F 72 16 120/51 97
12/13/24 11:38 12/13/24 11:38 12/13/24 11:38 12/13/24 11:38 12/13/24 11:00
Physical Exam
Constitutional: No Acute Distress and Comfortable
Eyes: Sclera Anicteric
Oropharyngeal: Ulcers (tongue and oral mucosa at left angle of mouth)
Cardiovascular: Regular Rate and S1/S2
Pulmonary: Clear
Gastrointestinal: Soft, Non Tender, Non Distended and Normal Bowel Sounds
Extremities: Edema (BLE)
Skin: Negative Rash
Neurological: AO x 3 and Other (Drowsy)
Objective Data
Lab Data
Lab Results
12/13/24 05:06
12/13/24 05:06
PT 17.3 Sec (11.4-14.6) H 12/12/24 09:23
INR 1.38 12/12/24 09:23
APTT 34.7 Sec (23.4-35.0) 12/12/24 09:23
Estimated Creat Clear 106 ml/min 12/13/24 05:06
Total Bilirubin 0.9 mg/dl (0.2-1.3) 12/12/24 09:23
AST 39 U/L (17-59) 12/12/24 09:23
ALT 29 U/L (0-50) 12/12/24 09:23
Alkaline Phosphatase 77 U/L (38-126) 12/12/24 09:23
Most recent labs reviewed.
Micro Results:
12/11/24 11:01 Blood Culture - Preliminary
Blood/Venous No Growth in 48 hours- Final report to follow
12/11/24 10:12 Blood Culture - Preliminary
Blood/Venous No Growth in 48 hours- Final report to follow
12/11/24 15:46 Urine Culture - Final
Urine NO GROWTH
12/11/24 12:57 Nasal Screen MRSA (PCR) - Final
Nose MRSA not detected - performed by PCR methodology.
12/11/24 CXR: No areas of airspace disease. Tiny left pleural effusion.
--- NOTE | 2024-12-13 13:47 | PTCARENOTE ---
PLT transfused as prescribed. Order verified, IV verified, PLT 9, Vitals checked, consent on the chart. Card sent to Blood bank. it was administered as prescribed without any incident, vitals stable no back pain no rash. pt now resting comfortably.
[2024-12-13] MEDS: POTASSIUM PHOSPHATE 259.0909 MEQ IV (16:10)
[2024-12-13] MEDS: NON-FORMULARY ITEM 1 UNIT PO (16:11)
[2024-12-13] MEDS: ROBITUSSIN 200 MG PO (16:27)
[2024-12-13 17:22] LABS: Glucose - Point of Care 121 mg/dl (70-99)
[2024-12-13] MEDS: CRESTOR 40 MG PO (18:16)
[2024-12-13 21:33] LABS: Glucose - Point of Care 111 mg/dl (70-99)
[2024-12-13] MEDS: PROTONIX 40 MG PO (21:36)
[2024-12-13] MEDS: MUCINEX 600 MG PO (21:37)
[2024-12-13] MEDS: SENOKOT-S 1 TABLET PO (21:37)
[2024-12-13] MEDS: ANUSOL HC 25 MG RECTAL (21:38)
[2024-12-13] MEDS: NSS (PRESERVATIVE FREE) IV (21:40)
[2024-12-14] VITALS (10 sets, daily range): BP systolic 90–141; BP diastolic 50–74
[2024-12-14] MEDS: STERILE WATER FOR INJECTION 20 ML IV ×2 (00:58→08:51)
[2024-12-14] MEDS: MERREM 1000 MG IV ×2 (00:59→08:50)
--- NOTE | 2024-12-14 07:04 | W.PN.HOSP.TC ---
Today's Communication/Plan
-
cont abx as per ID
platelet transfusions, goal plt>20 as per Oncology
bowel regimen
Trial of void
Assessment / Plan
Assessment / Plan
Physical Exam
General: No acute distress, resting comfortably in bed
HEENT: NormoCephalic, Moist mucous membranes and Atraumatic, oral thrush, oral ulcers
Respiratory: Clear and Non Labored Respirations
Cardiac: S1/S2 and Regular Rhythm
GI: Soft, Non Tender, Non Distended and Normal Bowel Sounds
Musculoskeletal: No Clubbing, No Cyanosis and No Edema
Skin: Pallor
Neuro: AO x 3 conversant coherent
Psych: Calm
74M AML CAD DMII HTN HLD referred for evaluation severe anemia. Neutropenic, patient developed fever overnight concerning for possible sepsis. Started on empiric abx
#Neutropenic Fever
Neutropenic precautions
blood cultures NGTD
urinalysis not suggestive UTI
CXR no acute abn's
trend temp, fever resolved last 100.4 12/12
ID eval appreciated Empiric abx merrem transitioned back to home Levaquin 12/14, vanc discontinued with neg MRSA screen
Tylenol prn
#anemia likely 2/2 chronic anemia with hemorrhoidal bleed
# Acute Blood Loss Anemia
#Thrombocytopenia
#pancytopenia likely 2/2 Hx AML
- Admit to telemetry
- Blood consent obtained by ED, scanned into chart
- transfused 2 unit PRBCs with appropriate response noted
- transfused Plt for goal >20 d/t fever
- trend h/h Plt
- follows with [facility]
- Consult Heme/Onc appreciated transfuse if fever Plt<20 or if bleeding Plt<50
- cont home Venclexta (reduced dose d/t pancytopenia and interaction voriconazole) as per Oncology
- continue acyclovir and voriconazole prophylactically
#Acute Urinary Retention
Hernandez discontinued 12/14 trial of void
#Oral Thrush, ulcers
magic mouthwash
Nystatin Swish
#Hemorrhoids
Preparation H ointment Q6HPRN
Anusol suppository HS
#Constipation
bowel regimen
prn suppository
#Acute Urinary Retention
Hernandez placed 12/11/24
eventual trial of void prior to discharge
#DM-II
- AccuCheck AC & HS
- SSI
- hold empagliflozin
#HLD
#CAD
- continue fenofibrate and rosuvastatin
#HTN
- continue metoprolol
Code status: full code
DVT prophylaxis: SCDs
Discussed with patient and patient's Nickie
I spent a total of 45 minutes with the patient or on the floor. More than 50% of this time involved counseling and coordination of care.
Anticipated Discharge: Within 24 hours
Subjective/Interval History
-
Date of Service: December 14, 2024
no acute distress, resting comfortably in bed. Overall reports feeling well. Denies new acute issues.
Objective Data
-
Labs:
Laboratory Results
12/14/24
06:59
WBC Pending
Hgb Pending
Hct Pending
Plt Count Pending
Sodium Pending
Potassium Pending
Chloride Pending
Carbon Dioxide Pending
BUN Pending
Creatinine Pending
Glucose Pending
Calcium Pending
Vital Signs:
Vital Signs
Temp Pulse Resp BP Pulse Ox
98.8 F 82 18 102/54 98
12/14/24 03:08 12/14/24 03:08 12/14/24 03:08 12/14/24 03:08 12/14/24 03:08
I&O
12/13/24 12/14/24 12/15/24
06:59 06:59 06:59
Intake Total 1645 / 1645 1827 / 2307 480 / 480
Output Total 1300 / 1300 500 / 1300 800 / 800
Balance 345 / 345 1327 / 1007 -320 / -320
[2024-12-14 07:40] LABS: Glucose - Point of Care 92 mg/dl (70-99)
[2024-12-14 07:57] LABS: Blood Urea Nitrogen 17 mg/dl (9-20); Estimated Creatinine Clearance 106 ml/min; Glucose 94 mg/dl (70-99)
[2024-12-14 07:58] LABS: Calcium 8.2 mg/dl (8.4-10.2); Carbon Dioxide 26 mmol/L (22-30); Chloride 105 mmol/L (98-107); Magnesium 2.0 mg/dl (1.6-2.3); Potassium 4.3 mmol/L (3.5-5.1); Sodium 134 mmol/L (135-145); eGFR > 60.00
--- NOTE | 2024-12-14 08:19 | W.PN.ONC2 ---
Today's Communication / Plan
-
daily CBC
transfuse prn
continue venclexta
Impression
Impression
AML not in remission -C2 vidaza/venetoclex (started 12/07/24)
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
neutropenic fever
stomatitis
hemorrhoid bleeding
Plan
Plan
Broad spectrum abx
Continue antiinfectives ppx vori, acyclovir -will consider resumption of levaquin after course of abx for NF complete
Follow cultures -negative to date
Transfuse for hgb <7, platelets <20 -- he is not a transplant candidate, and is not at risk for transfusion-associated GVHD, therefore, he does not need special blood products (only leukoreduced, which is standard practice)
Supportive care for stomatitis
Continue venetoclax, further dose reduced (from 200mg to 100mg/d) this admission in light of interaction with voriconazole and severe pancytopenia
Has OP follow up with Dr. Genao 12/30/2024
Subjective/Objective
Subjective
bedsore and hemorrhoid pain
denies bleeding
stomatitis mildly improved
afebrile
Vital Signs:
Vital Signs
Temp Pulse Resp BP Pulse Ox
98.6 F 95 18 122/66 96
12/14/24 07:46 12/14/24 07:46 12/14/24 07:46 12/14/24 07:46 12/14/24 07:46
Lab Results:
Laboratory Data
WBC 0.4 10^3/uL (4.8-10.8) L* 12/13/24 05:06
Hgb 7.6 g/dL (13.0-18.0) L 12/13/24 05:06
Plt Count 9 10^3/uL (130-400) L* D 12/13/24 05:06
PT 17.3 Sec (11.4-14.6) H 12/12/24 09:23
INR 1.38 12/12/24 09:23
APTT 34.7 Sec (23.4-35.0) 12/12/24 09:23
eGFR > 60.00 12/14/24 06:59
Physical Exam
HEENT: Other (stomatitis); No Jaundice
Cardiology: Normal Sinus Rhythm
Pulmonary: Clear
GI: Soft
Extremities: Pulses Present and Edema
Neuro: Non Focal
[2024-12-14 08:32] LABS: Hematocrit 25.1 % (39.0-52.0); Hemoglobin 8.7 g/dL (13.0-18.0); Mean Corp Hgb Conc. 34.7 g/dL (33.0-37.0); Mean Corpuscular Volume 89.0 fL (80.0-94.0); Nucleated Red Blood Cells % 0 % (-); Platelet Count 11 10^3/uL (130-400); Red Cell Dist. Width 16.5 % (11.5-14.5)
[2024-12-14] MEDS: NOVOLOG FLEXPEN-LOW RESISTANCE SC ×3 (08:38→17:16)
[2024-12-14] MEDS: PROTONIX 40 MG PO ×2 (08:40→22:42)
[2024-12-14] MEDS: MUCINEX 600 MG PO ×2 (08:40→22:42)
[2024-12-14] MEDS: THERAGRAN 1 TABLET PO (08:40)
[2024-12-14] MEDS: VITAMIN C 500 MG PO (08:40)
[2024-12-14] MEDS: ZOVIRAX 400 MG PO ×2 (08:40→22:42)
[2024-12-14] MEDS: MYCELEX TROCHE 10 MG PO ×4 (08:40→22:41)
[2024-12-14] MEDS: VITAMIN B-12 1000 MCG PO (08:41)
[2024-12-14] MEDS: VFEND 200 MG PO ×2 (08:41→22:42)
[2024-12-14] MEDS: TOPROL XL 25 MG PO (08:41)
[2024-12-14] MEDS: TRICOR 145 MG PO (08:41)
[2024-12-14] MEDS: SENOKOT-S 1 TABLET PO ×2 (08:41→22:42)
[2024-12-14] MEDS: OCUVITE SOFTGEL 1 CAP PO ×2 (08:41→22:42)
[2024-12-14] MEDS: MAGIC OR MIRACLE MOUTHWASH 5 ML PO ×3 (08:45→22:44)
[2024-12-14] MEDS: MYCOSTATIN ORAL SUSPENSION 5 ML PO ×4 (08:46→22:42)
[2024-12-14] MEDS: MIRALAX 17 GRAMS PO (08:46)
[2024-12-14] MEDS: DECADRON 0.5 MG PO ×3 (08:46→22:43)
[2024-12-14] MEDS: NSS (PRESERVATIVE FREE) 10 ML IV (08:50)
[2024-12-14] MEDS: ULTRAM 50 MG PO (09:06)
[2024-12-14 11:52] LABS: Glucose - Point of Care 115 mg/dl (70-99)
[2024-12-14] MEDS: PREPARATION H MAX STRENGTH PAIN RELIEF CREAM 1 APPLIC RECTAL ×2 (12:50→22:44)
[2024-12-14] MEDS: MAGIC OR MIRACLE MOUTHWASH PO (12:54)
--- NOTE | 2024-12-14 13:10 | WOUNDNOTE ---
WON RN note: Patient admitted with GI bleed and Pancytopenia.
See H&P for complete history.
PMH: Patient is a 74-year-old male with past medical history significant for AML, CAD, DM-II, HLD and HTN who presented to [facility] ED for evaluation of abnormal out patient labs. Patient reports he was at [place] this morning for his scheduled chemo
when they recommended he come to ED.
Wound Location and type/assessment: Patient admitted with: stage 1 PI on gluteal cleft, now reported stage 2 PI. Shallow open ulcer, scant drainage, suspect stage 2 vs MASD. Periwound with peeling skin, blanchable and easily bleeds upon cleaning,
Platelets 11. Currently using a donut cushion to offload sacrum. Patient declined getting oob to chair for lunch, nurse reports. Patient able to turn self to sides, Heels blanchable pink.
Appetite: Poor, encouraged protein in diet, patient states he will try.
Pressure redistribution devices in place: On Accumax, encouraged turning, pressure ulcer prevention measures reviewed with patient, states he understands. Air cushion brought in, recommended to patient to use this instead of donut cushion. Air
cushion on pillow under calves to offload heels.
Plan: Folded silver alginate placed in gluteal cleft then large silicone foam applied. Skin prep and adhesive foams applied to heels to protect. If patient refusing to turn recommend applying air overlay or switch bed to Air mattress.
Will confirm orders with hospitalist and updated nurse Martha.
Updated care plan and will follow as needed.
Note to case management of equipment requested for discharge:Can take air cushion home.
Recommend follow up at wound care center upon discharge.
--- NOTE | 2024-12-14 13:20 | CM ---
Patient seen at bedside
tt hospitalist PT gladys
PLAN: Home, CM to follow for needs
--- NOTE | 2024-12-14 13:32 | W.PN.ID1 ---
Date of Service
Date of Service: December 14, 2024
Today's Communication
Transition meropenem back to levofloxacin.
Assessment / Plan
# Neutropenic fever
# Rectal bleeding from hemorrhoids, resolved
# Recent dx of AML on cycle 2 Vidaza, Venetoclax, ppx acyclovir, levofloxacin, voriconazole
# Prolonged neutropenia due to AML
# Oral stomatitis associated with AML
# Pancytopenia, frequent transfusions
Recommendations:
- CXR neg opacity
- Blood cx remain neg to date
- Ucx neg
- Patient afebrile
- Transition back to levofloxacin 500 mg p.o. q. day
����������������������������������������������������������
Chief Complaint
-: Fever
Subjective / Review of Systems
Review of Systems: No Fever and No Chills
Vital Signs / Physical Exam
Vital Signs
Vital Signs
Temp Pulse Resp BP Pulse Ox
98.6 F 77 18 113/60 98
12/14/24 11:12 12/14/24 11:12 12/14/24 11:12 12/14/24 11:12 12/14/24 11:12
Physical Exam
Constitutional: No Acute Distress and Comfortable
Eyes: Sclera Anicteric
Oropharyngeal: Ulcers (tongue and oral mucosa at left angle of mouth)
Cardiovascular: Regular Rate and S1/S2
Pulmonary: Clear
Gastrointestinal: Soft, Non Tender, Non Distended and Normal Bowel Sounds
Extremities: Edema (BLE)
Skin: Negative Rash
Neurological: AO x 3
Objective Data
Lab Data
Lab Results
12/14/24 06:59
12/14/24 06:59
PT 17.3 Sec (11.4-14.6) H 12/12/24 09:23
INR 1.38 12/12/24 09:23
APTT 34.7 Sec (23.4-35.0) 12/12/24 09:23
Estimated Creat Clear 106 ml/min 12/14/24 06:59
Total Bilirubin 0.9 mg/dl (0.2-1.3) 12/12/24 09:23
AST 39 U/L (17-59) 12/12/24 09:23
ALT 29 U/L (0-50) 12/12/24 09:23
Alkaline Phosphatase 77 U/L (38-126) 12/12/24 09:23
Most recent labs reviewed.
Micro Results:
12/11/24 11:01 Blood Culture - Preliminary
Blood/Venous No Growth in 72 hours- Final report to follow
12/11/24 10:12 Blood Culture - Preliminary
Blood/Venous No Growth in 72 hours- Final report to follow
12/11/24 15:46 Urine Culture - Final
Urine NO GROWTH
12/11/24 12:57 Nasal Screen MRSA (PCR) - Final
Nose MRSA not detected - performed by PCR methodology.
12/11/24 CXR: No areas of airspace disease. Tiny left pleural effusion.
[2024-12-14] MEDS: LEVAQUIN 500 MG PO (15:34)
[2024-12-14] MEDS: NON-FORMULARY ITEM 1 UNIT PO (16:31)
[2024-12-14] MEDS: PREPARATION H MAX STRENGTH PAIN RELIEF CREAM RECTAL (17:13)
[2024-12-14 17:16] LABS: Glucose - Point of Care 116 mg/dl (70-99)
--- NOTE | 2024-12-14 18:49 | PTCARENOTE ---
Called pharmacy to restock Crestor in both medicine dispensers or to send pt specific dose for 1800
[2024-12-14 21:59] LABS: Glucose - Point of Care 110 mg/dl (70-99)
[2024-12-14] MEDS: CRESTOR 40 MG PO (22:41)
[2024-12-14] MEDS: ANUSOL HC 25 MG RECTAL (22:42)
[2024-12-14] MEDS: NSS (PRESERVATIVE FREE) IV (22:44)
[2024-12-15] VITALS (16 sets, daily range): BP systolic 105–137; BP diastolic 49–110; PULSE 84; O2SAT 98; BMI 29.8
[2024-12-15 06:21] LABS: Blood Urea Nitrogen 16 mg/dl (9-20); Calcium 7.6 mg/dl (8.4-10.2); Carbon Dioxide 28 mmol/L (22-30); Chloride 105 mmol/L (98-107); Estimated Creatinine Clearance 106 ml/min; Glucose 96 mg/dl (70-99); Magnesium 2.0 mg/dl (1.6-2.3); Potassium 4.3 mmol/L (3.5-5.1); Sodium 134 mmol/L (135-145); eGFR > 60.00
--- NOTE | 2024-12-15 06:59 | W.PN.HOSP.TC ---
Today's Communication/Plan
-
platelet transfusions
PT/OT
discharge planning SNF rehab
Assessment / Plan
Assessment / Plan
Physical Exam
General: No acute distress, resting comfortably in bed
HEENT: NormoCephalic, Moist mucous membranes and Atraumatic, oral thrush, oral ulcers
Respiratory: Clear and Non Labored Respirations
Cardiac: S1/S2 and Regular Rhythm
GI: Soft, Non Tender, Non Distended and Normal Bowel Sounds
Musculoskeletal: No Clubbing, No Cyanosis and No Edema
Skin: Pallor
Neuro: AO x 3 conversant coherent
Psych: Calm
74M AML CAD DMII HTN HLD referred for evaluation severe anemia. Neutropenic, patient developed fever overnight concerning for possible sepsis. Started on empiric abx
#Neutropenic Fever
Neutropenic precautions
blood cultures NGTD
urinalysis not suggestive UTI
CXR no acute abn's
trend temp, fever resolved last 100.4 12/12
ID eval appreciated Empiric abx merrem transitioned back to home Levaquin 12/14, vanc discontinued with neg MRSA screen
Tylenol prn
#anemia likely 2/2 chronic anemia with hemorrhoidal bleed
# Acute Blood Loss Anemia
#Thrombocytopenia
#pancytopenia likely 2/2 Hx AML
- Admit to telemetry
- Blood consent obtained by ED, scanned into chart
- transfused 2 unit PRBCs with appropriate response noted
- transfused Plt for goal >20 d/t fever
- trend h/h Plt
- follows with [facility]
- Consult Heme/Onc appreciated transfuse if fever Plt<20 or if bleeding Plt<50
- cont home Venclexta (reduced dose d/t pancytopenia and interaction voriconazole) as per Oncology
- continue acyclovir and voriconazole prophylactically
-PICC to be placed as per oncology however requires plt count>20
#Acute Urinary Retention
Hernandez discontinued 12/14 passed trial of void
#Oral Thrush, ulcers
magic mouthwash
Nystatin Swish
#Hemorrhoids
Preparation H ointment QID
#Constipation
bowel regimen
#DM-II
- AccuCheck AC & HS
- SSI
- hold empagliflozin
#HLD
#CAD
- continue fenofibrate and rosuvastatin
#HTN
- continue metoprolol
PT/OT appreciated SNF rehab
Code status: full code
DVT prophylaxis: SCDs
Discussed with patient and patient's Nickie
I spent a total of 45 minutes with the patient or on the floor. More than 50% of this time involved counseling and coordination of care.
Anticipated Discharge: 24 - 48 hours
Subjective/Interval History
-
Date of Service: December 15, 2024
No acute distress, appears comfortable at this time. Denies new acute issues. Overall reports feeling well.
Objective Data
-
Labs:
Laboratory Results
12/15/24
05:34
WBC Pending
Hgb Pending
Hct Pending
Plt Count Pending
Sodium 134 L
Potassium 4.3
Chloride 105
Carbon Dioxide 28
BUN 16
Creatinine 0.5 L
Glucose 96
Calcium 7.6 L
Vital Signs:
Vital Signs
Temp Pulse Resp BP Pulse Ox
97.9 F 77 16 134/63 94
12/15/24 03:27 12/15/24 03:27 12/15/24 03:27 12/15/24 03:27 12/15/24 03:27
I&O
12/13/24 12/14/24 12/15/24
06:59 06:59 06:59
Intake Total 1645 / 1645 1827 / 2307 2912 / 2912
Output Total 1300 / 1300 500 / 1300 2550 / 2550
Balance 345 / 345 1327 / 1007 362 / 362
[2024-12-15 07:13] LABS: Hematocrit 21.3 % (39.0-52.0); Hemoglobin 7.2 g/dL (13.0-18.0); Mean Corp Hgb Conc. 33.8 g/dL (33.0-37.0); Mean Corpuscular Volume 90.3 fL (80.0-94.0); Nucleated Red Blood Cells % 0 % (-); Platelet Count 15 10^3/uL (130-400); Red Cell Dist. Width 16.0 % (11.5-14.5)
[2024-12-15 07:52] LABS: Glucose - Point of Care 99 mg/dl (70-99)
--- NOTE | 2024-12-15 08:23 | W.PN.ONC2 ---
Today's Communication / Plan
-
monitor CBC, transfuse prn - I will order 1U PRBC & 1U SDP today in anticipation of discharge planning
continue acyclovir, vori, levaquin at dc
continue venclexta 100mg daily at dc
avoid suppositories with ANC chronically <500
at bedside provided updates and questions answered
Impression
Impression
AML not in remission -C2 vidaza/venetoclex (started 12/07/24)
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
neutropenic fever -cultures negative to date -IV abx complete 12/14 -resolved
stomatitis -improved
hemorrhoid bleeding - resolved
Plan
Plan
would avoid suppositories with ANC <500
Continue antiinfectives ppx vori, acyclovir -transitioned toribio to levaquin since course of abx for NF complete
Transfuse for hgb <7, platelets <20 -- he is not a transplant candidate, and is not at risk for transfusion-associated GVHD, therefore, he does not need special blood products (only leukoreduced, which is standard practice)
Supportive care for stomatitis
Continue venetoclax 100mg/d due to interaction with voriconazole and severe pancytopenia
Has OP follow up with Dr. Genao 12/30/2024
Subjective/Objective
Subjective
afebrile
denies bleeding
using tramadol prn pain
using miralax for constipation with BM overnight
improved appetite
Vital Signs:
Vital Signs
Temp Pulse Resp BP Pulse Ox
98.2 F 77 16 131/57 99
12/15/24 07:44 12/15/24 07:44 12/15/24 07:44 12/15/24 07:44 12/15/24 07:44
Lab Results:
Laboratory Data
WBC 0.5 10^3/uL (4.8-10.8) L* 12/15/24 05:34
Hgb 7.2 g/dL (13.0-18.0) L 12/15/24 05:34
Plt Count 15 10^3/uL (130-400) L* D 12/15/24 05:34
PT 17.3 Sec (11.4-14.6) H 12/12/24 09:23
INR 1.38 12/12/24 09:23
APTT 34.7 Sec (23.4-35.0) 12/12/24 09:23
eGFR > 60.00 12/15/24 05:34
Physical Exam
HEENT: Moist Mucous Membranes; No Jaundice
Pulmonary: Other (unlabored)
GI: Soft
Extremities: Pulses Present
Neuro: Non Focal
[2024-12-15] MEDS: NOVOLOG FLEXPEN-LOW RESISTANCE SC ×3 (08:40→17:26)
[2024-12-15] MEDS: VITAMIN C 500 MG PO (09:00)
[2024-12-15] MEDS: OCUVITE SOFTGEL 1 CAP PO ×2 (09:00→21:34)
[2024-12-15] MEDS: PROTONIX 40 MG PO ×2 (09:00→21:34)
[2024-12-15] MEDS: LEVAQUIN 500 MG PO (09:00)
[2024-12-15] MEDS: VITAMIN B-12 1000 MCG PO (09:00)
[2024-12-15] MEDS: SENOKOT-S 1 TABLET PO ×2 (09:00→21:34)
[2024-12-15] MEDS: VFEND 200 MG PO ×2 (09:00→22:03)
[2024-12-15] MEDS: ZOVIRAX 400 MG PO ×2 (09:00→22:03)
[2024-12-15] MEDS: TRICOR 145 MG PO (09:00)
[2024-12-15] MEDS: THERAGRAN 1 TABLET PO (09:00)
[2024-12-15] MEDS: MYCELEX TROCHE 10 MG PO ×4 (09:00→21:34)
[2024-12-15] MEDS: PREPARATION H MAX STRENGTH PAIN RELIEF CREAM 1 APPLIC RECTAL ×3 (09:01→21:41)
[2024-12-15] MEDS: MYCOSTATIN ORAL SUSPENSION 5 ML PO ×4 (09:01→21:34)
[2024-12-15] MEDS: DECADRON 0.5 MG PO ×3 (09:01→21:34)
[2024-12-15] MEDS: TOPROL XL 25 MG PO (09:02)
[2024-12-15] MEDS: MAGIC OR MIRACLE MOUTHWASH 5 ML PO ×4 (09:02→21:39)
[2024-12-15] MEDS: NSS (PRESERVATIVE FREE) IV ×2 (09:02→21:37)
[2024-12-15] MEDS: MIRALAX 17 GRAMS PO (09:02)
[2024-12-15] MEDS: MUCINEX 600 MG PO ×2 (09:04→21:33)
--- NOTE | 2024-12-15 09:48 | PN.CDI ---
CDI
- -
CDI:
Physician Documentation Request
Admit Date: 12/10/24 16:38
Dear Doctor Smiley,
Please review the following and provide your response in the progress notes.
Clinical Indicators:
Pt admitted with hemorrhoid bleed/ Pancytopenia due to AML/Chemotherapy
Documented per nursing wound care note 12/13 &12/14,' Present on admission gluteal cleft pressure injury stage 2 ..silicone border in place...Sacrum Pressure injury stage 2 .. treatment provided adhesive foam ..'
Physician documentation of the type and location of wounds is required for compliant documentation. Based on the above clinical findings and your assessment, please provide the following in your progress note:
1. Location of the ulcer/wound, including laterality.
2. Type (etiology) of ulcer/wound:
- Pressure (decubitus) ulcer
- Non-pressure ulcer
- Other ( please specify)
Use of terms such as suspected, likely, concern for, or probable (associated with a specific diagnosis that is being evaluated, monitored, or treated as if it exists) are acceptable and can be coded in the inpatient setting, when documented at the
time of discharge.
Thank you,
Valentina Cross RN
CDI Specialist
[place] [facility]
Please use your independent medical judgment in providing your response.
*Source: National Pressure Ulcer Advisory Panel (NPUAP)
--- NOTE | 2024-12-15 11:49 | W.PN.ID1 ---
Date of Service
Date of Service: December 15, 2024
Today's Communication
Sign off.
Assessment / Plan
# Neutropenic fever
- resolved
# Rectal bleeding from hemorrhoids, resolved
# Recent dx of AML on cycle 2 Vidaza, Venetoclax, ppx acyclovir, levofloxacin, voriconazole
# Prolonged neutropenia due to AML
# Oral stomatitis associated with AML
# Pancytopenia, frequent transfusions
Recommendations:
- CXR neg opacity
- Blood cx remain neg to date
- Ucx neg
- Patient remains afebrile
- Continue with prophylactic levofloxacin, acyclovir and voriconazole.
Little more to offer from a Infectious Disease standpoint at this time.
Will see again at your request.
����������������������������������������������������������
Chief Complaint
-: Fever
Subjective / Review of Systems
Review of Systems: No Fever and No Chills
Vital Signs / Physical Exam
Vital Signs
Vital Signs
Temp Pulse Resp BP Pulse Ox
98.0 F 89 18 135/67 96
12/15/24 11:21 12/15/24 11:21 12/15/24 11:21 12/15/24 11:21 12/15/24 11:21
Physical Exam
Constitutional: No Acute Distress and Comfortable
Eyes: Sclera Anicteric
Oropharyngeal: Ulcers (tongue and oral mucosa at left angle of mouth)
Cardiovascular: Regular Rate and S1/S2
Pulmonary: Clear
Gastrointestinal: Soft, Non Tender, Non Distended and Normal Bowel Sounds
Extremities: Edema (BLE)
Skin: Negative Rash
Neurological: AO x 3
Objective Data
Lab Data
Lab Results
12/15/24 05:34
12/15/24 05:34
PT 17.3 Sec (11.4-14.6) H 12/12/24 09:23
INR 1.38 12/12/24 09:23
APTT 34.7 Sec (23.4-35.0) 12/12/24 09:23
Estimated Creat Clear 106 ml/min 12/15/24 05:34
Total Bilirubin 0.9 mg/dl (0.2-1.3) 12/12/24 09:23
AST 39 U/L (17-59) 12/12/24 09:23
ALT 29 U/L (0-50) 12/12/24 09:23
Alkaline Phosphatase 77 U/L (38-126) 12/12/24 09:23
Most recent labs reviewed.
Micro Results:
12/11/24 11:01 Blood Culture - Preliminary
Blood/Venous No Growth in 4 days- Final report to follow
12/11/24 10:12 Blood Culture - Preliminary
Blood/Venous No Growth in 4 days- Final report to follow
12/11/24 15:46 Urine Culture - Final
Urine NO GROWTH
12/11/24 12:57 Nasal Screen MRSA (PCR) - Final
Nose MRSA not detected - performed by PCR methodology.
Imaging:
12/11/24 CXR: No areas of airspace disease. Tiny left pleural effusion.
[2024-12-15 12:08] LABS: Glucose - Point of Care 114 mg/dl (70-99)
--- NOTE | 2024-12-15 14:40 | CM ---
Patient seen at bedside with Nickie
PT rec SNF
CM consult [id number]/ agreeable
reviewed options with patient/ & list given to
discussed barrier of placement when on chemo-agreeable to chemo on hold until rehab completed
tt oncology Paola Pineda-ok to hold dacogen, cont oral venclexta
Referrals placed in careport
PLAN: SNF, pending acceptance/bed availability when stable
[2024-12-15 15:47] LABS: Platelet Count 18 10^3/uL (130-400)
[2024-12-15 16:57] LABS: Glucose - Point of Care 109 mg/dl (70-99)
[2024-12-15] MEDS: CRESTOR 40 MG PO (17:25)
[2024-12-15] MEDS: NON-FORMULARY ITEM 1 UNIT PO (17:26)
[2024-12-15] MEDS: PREPARATION H MAX STRENGTH PAIN RELIEF CREAM RECTAL (17:28)
[2024-12-15 21:40] LABS: Glucose - Point of Care 121 mg/dl (70-99)
[2024-12-16] VITALS (10 sets, daily range): BP systolic 111–155; BP diastolic 56–103; PULSE 101; O2SAT 98
--- NOTE | 2024-12-16 02:25 | PTCARENOTE ---
ordered patient to receive 2 units of platelets at 1849. Blood bank called this RN to notify only 1 unit was available and that they are unsure when the 2 unit will arrive from the [facility] [place]. Patient tolerated first unit. Plan of care ongoing.
--- NOTE | 2024-12-16 07:14 | W.PN.HOSP.TC ---
Today's Communication/Plan
-
transfuse platelet for PICC placement today
Monitor CBC
Discharge planning SNF rehab
Bladder scan protocol
Assessment / Plan
Assessment / Plan
Physical Exam
General: No acute distress, resting comfortably in bed
HEENT: NormoCephalic, Moist mucous membranes and Atraumatic, oral thrush, oral ulcers
Respiratory: Clear and Non Labored Respirations
Cardiac: S1/S2 and Regular Rhythm
GI: Soft, Non Tender, Non Distended and Normal Bowel Sounds
Musculoskeletal: No Clubbing, No Cyanosis and No Edema
Skin: Pallor
Neuro: AO x 3 conversant coherent
Psych: Calm
74M AML CAD DMII HTN HLD referred for evaluation severe anemia. Neutropenic, patient developed fever overnight concerning for possible sepsis. Started on empiric abx
#Neutropenic Fever
Neutropenic precautions
blood cultures NGTD
urinalysis not suggestive UTI
CXR no acute abn's
trend temp, fever resolved last 100.4 12/12
ID eval appreciated Empiric abx merrem transitioned back to home Levaquin 12/14, vanc discontinued with neg MRSA screen
Tylenol prn
#anemia likely 2/2 chronic anemia with hemorrhoidal bleed
# Acute Blood Loss Anemia
#Thrombocytopenia
#pancytopenia likely 2/2 Hx AML
- Admit to telemetry
- Blood consent obtained by ED, scanned into chart
- transfused 2 unit PRBCs with appropriate response noted
- transfused Plt for goal >20 d/t fever, later transfused for goal>20 PICC placement
- trend h/h Plt
- follows with [facility]
- Consult Heme/Onc appreciated transfuse if fever Plt<20 or if bleeding Plt<50
- cont home Venclexta (reduced dose d/t pancytopenia and interaction voriconazole) as per Oncology
- continue acyclovir and voriconazole prophylactically
-PICC placed as per oncology to assist with outpatient labwork and prn transfusions
#Acute Urinary Retention
Hernandez discontinued 12/14 passed trial of void
some retention however noted 12/16 required once straight cath for 500 cc
cont to monitor for now
#Oral Thrush, ulcers
magic mouthwash
Nystatin Swish
#Hemorrhoids
Preparation H ointment QID
#Constipation
bowel regimen
#DM-II
- AccuCheck AC & HS
- SSI
- hold empagliflozin
#HLD
#CAD
- continue fenofibrate and rosuvastatin
#HTN
- continue metoprolol
#Sacrum Pressure injury stage 2
cont local wound care
PT/OT appreciated SNF rehab
Code status: full code
DVT prophylaxis: SCDs
Discussed with patient and patient's Nickie
I spent a total of 45 minutes with the patient or on the floor. More than 50% of this time involved counseling and coordination of care.
Anticipated Discharge: 24 - 48 hours
Subjective/Interval History
-
Date of Service: December 16, 2024
no acute distress, some urinary retention noted, required once straight cath.
Objective Data
-
Labs:
Laboratory Results
12/16/24
06:43
WBC Pending
Hgb Pending
Hct Pending
Plt Count Pending
Sodium Pending
Potassium Pending
Chloride Pending
Carbon Dioxide Pending
BUN Pending
Creatinine Pending
Glucose Pending
Calcium Pending
Vital Signs:
Vital Signs
Temp Pulse Resp BP Pulse Ox
98.2 F 74 16 155/64 95
12/16/24 03:07 12/16/24 03:07 12/16/24 03:07 12/16/24 03:07 12/16/24 03:07
I&O
12/15/24 12/16/24 12/17/24
06:59 06:59 06:59
Intake Total 2912 / 2912 1462 / 1462
Output Total 2550 / 2550
Balance 362 / 362 1462 / 1462
[2024-12-16 07:30] LABS: Hematocrit 23.2 % (39.0-52.0); Hemoglobin 8.0 g/dL (13.0-18.0); Mean Corp Hgb Conc. 34.5 g/dL (33.0-37.0); Mean Corpuscular Volume 86.6 fL (80.0-94.0); Nucleated Red Blood Cells % 0 % (-); Platelet Count 21 10^3/uL (130-400); Red Cell Dist. Width 17.5 % (11.5-14.5)
[2024-12-16 07:53] LABS: Blood Urea Nitrogen 13 mg/dl (9-20); Calcium 7.7 mg/dl (8.4-10.2); Carbon Dioxide 25 mmol/L (22-30); Chloride 107 mmol/L (98-107); Estimated Creatinine Clearance 106 ml/min; Glucose 89 mg/dl (70-99); Magnesium 1.9 mg/dl (1.6-2.3); Potassium 3.8 mmol/L (3.5-5.1); Sodium 135 mmol/L (135-145); eGFR > 60.00
[2024-12-16 07:59] LABS: Glucose - Point of Care 95 mg/dl (70-99)
[2024-12-16] MEDS: DECADRON 0.5 MG PO ×3 (08:14→22:06)
[2024-12-16] MEDS: SENOKOT-S 1 TABLET PO ×2 (08:14→20:30)
[2024-12-16] MEDS: TOPROL XL 25 MG PO (08:14)
[2024-12-16] MEDS: MYCOSTATIN ORAL SUSPENSION 5 ML PO ×4 (08:14→22:11)
[2024-12-16] MEDS: MAGIC OR MIRACLE MOUTHWASH 5 ML PO ×4 (08:14→22:09)
[2024-12-16] MEDS: ZOVIRAX 400 MG PO ×2 (08:14→20:31)
[2024-12-16] MEDS: TRICOR 145 MG PO (08:14)
[2024-12-16] MEDS: NOVOLOG FLEXPEN-LOW RESISTANCE SC ×3 (08:14→16:56)
[2024-12-16] MEDS: THERAGRAN 1 TABLET PO (08:15)
[2024-12-16] MEDS: VITAMIN B-12 1000 MCG PO (08:15)
[2024-12-16] MEDS: VFEND 200 MG PO ×2 (08:15→20:31)
[2024-12-16] MEDS: MYCELEX TROCHE 10 MG PO ×4 (08:15→22:07)
[2024-12-16] MEDS: OCUVITE SOFTGEL 1 CAP PO ×2 (08:15→20:31)
[2024-12-16] MEDS: VITAMIN C 500 MG PO (08:15)
[2024-12-16] MEDS: PROTONIX 40 MG PO ×2 (08:15→20:30)
[2024-12-16] MEDS: NSS (PRESERVATIVE FREE) IV ×2 (08:15→20:31)
[2024-12-16] MEDS: LEVAQUIN 500 MG PO (08:15)
[2024-12-16] MEDS: MIRALAX PO (08:15)
[2024-12-16] MEDS: MUCINEX 600 MG PO ×2 (08:15→20:31)
[2024-12-16] MEDS: PREPARATION H MAX STRENGTH PAIN RELIEF CREAM 1 APPLIC RECTAL ×4 (08:15→22:08)
--- NOTE | 2024-12-16 11:34 | PTCARENOTE ---
pt aaox3. states no pain. 1 unit plt transfused. picc line placed by vat team.
[2024-12-16 12:14] LABS: Glucose - Point of Care 102 mg/dl (70-99)
[2024-12-16 16:28] LABS: Glucose - Point of Care 130 mg/dl (70-99)
[2024-12-16] MEDS: NON-FORMULARY ITEM 1 UNIT PO (17:08)
[2024-12-16] MEDS: CRESTOR 40 MG PO (17:08)
[2024-12-16 21:13] LABS: Glucose - Point of Care 126 mg/dl (70-99)
[2024-12-17] VITALS (9 sets, daily range): BP systolic 128–148; BP diastolic 60–72
[2024-12-17 06:03] LABS: Hematocrit 21.7 % (39.0-52.0); Hemoglobin 7.6 g/dL (13.0-18.0); Mean Corp Hgb Conc. 35.0 g/dL (33.0-37.0); Mean Corpuscular Volume 86.5 fL (80.0-94.0); Nucleated Red Blood Cells % 0 % (-); Platelet Count 17 10^3/uL (130-400); Red Cell Dist. Width 17.0 % (11.5-14.5)
[2024-12-17 06:19] LABS: Blood Urea Nitrogen 13 mg/dl (9-20); Calcium 8.1 mg/dl (8.4-10.2); Carbon Dioxide 27 mmol/L (22-30); Chloride 108 mmol/L (98-107); Estimated Creatinine Clearance 106 ml/min; Glucose 97 mg/dl (70-99); Magnesium 1.8 mg/dl (1.6-2.3); Potassium 3.7 mmol/L (3.5-5.1); Sodium 135 mmol/L (135-145); eGFR > 60.00
--- NOTE | 2024-12-17 07:08 | W.PN.HOSP.TC ---
Today's Communication/Plan
-
Transfusions as per Oncology
Discharge planning SNf rehab
Assessment / Plan
Assessment / Plan
Physical Exam
General: No acute distress, resting comfortably in bed
HEENT: NormoCephalic, Moist mucous membranes and Atraumatic, oral thrush, oral ulcers
Respiratory: Clear and Non Labored Respirations
Cardiac: S1/S2 and Regular Rhythm
GI: Soft, Non Tender, Non Distended and Normal Bowel Sounds
Musculoskeletal: No Clubbing, No Cyanosis and No Edema
Skin: Pallor
Neuro: AO x 3 conversant coherent
Psych: Calm
74M AML CAD DMII HTN HLD referred for evaluation severe anemia. Neutropenic, patient developed fever overnight concerning for possible sepsis. Started on empiric abx
#Neutropenic Fever
Neutropenic precautions
blood cultures NGTD
urinalysis not suggestive UTI
CXR no acute abn's
trend temp, fever resolved last 100.4 12/12
ID eval appreciated Empiric abx merrem transitioned back to home Levaquin 12/14, vanc discontinued with neg MRSA screen
Tylenol prn
#anemia likely 2/2 chronic anemia with hemorrhoidal bleed
# Acute Blood Loss Anemia
#Thrombocytopenia
#pancytopenia likely 2/2 Hx AML
- Admit to telemetry
- Blood consent obtained by ED, scanned into chart
- transfused 2 unit PRBCs with appropriate response noted
- transfused Plt for goal >20 d/t fever, later transfused for goal>20 PICC placement
- trend h/h Plt
- follows with [facility]
- Consult Heme/Onc appreciated transfuse if Plt<20 or if bleeding Plt<50
- cont home Venclexta (reduced dose d/t pancytopenia and interaction voriconazole) as per Oncology
- continue acyclovir and voriconazole prophylactically
-PICC placed as per oncology to assist with outpatient labwork and prn transfusions
-hold parenteral chemo until discharged to home post rehab
#Acute Urinary Retention
Hernandez discontinued 12/14 passed trial of void
bladder scan prn per protocol
#Oral Thrush, ulcers
magic mouthwash
Nystatin Swish
#Hemorrhoids
Preparation H ointment QID
#Constipation
bowel regimen
#DM-II
- AccuCheck AC & HS
- SSI
- hold empagliflozin
#HLD
#CAD
- continue fenofibrate and rosuvastatin
#HTN
- continue metoprolol
#Sacrum Pressure injury stage 2
cont local wound care
PT/OT appreciated SNF rehab
Code status: full code
DVT prophylaxis: SCDs
Discussed with patient and patient's Nickie
I spent a total of 39 minutes with the patient or on the floor. More than 50% of this time involved counseling and coordination of care.
Anticipated Discharge: 24 - 48 hours
Subjective/Interval History
-
Date of Service: December 17, 2024
No acute distress, resting comfortably in bed. No new acute issues. Nickie present during evaluation.
Objective Data
-
Labs:
Laboratory Results
12/17/24
05:47
WBC 0.4 L*
Hgb 7.6 L
Hct 21.7 L
Plt Count 17 L*
Sodium 135
Potassium 3.7
Chloride 108 H
Carbon Dioxide 27
BUN 13
Creatinine 0.5 L
Glucose 97
Calcium 8.1 L
Vital Signs:
Vital Signs
Temp Pulse Resp BP Pulse Ox
98.2 F 74 14 127/64 97
12/16/24 23:00 12/16/24 23:00 12/16/24 23:00 12/16/24 23:00 12/16/24 23:00
I&O
12/16/24 12/17/24 12/18/24
06:59 06:59 06:59
Intake Total 1462 / 1462 1922 / 1922
Output Total 500 / 500
Balance 1462 / 1462 1423 / 1423
[2024-12-17 08:23] LABS: Glucose - Point of Care 95 mg/dl (70-99)
[2024-12-17] MEDS: MAGIC OR MIRACLE MOUTHWASH 5 ML PO ×4 (08:31→21:16)
[2024-12-17] MEDS: MYCOSTATIN ORAL SUSPENSION 5 ML PO ×4 (08:33→21:14)
[2024-12-17] MEDS: DECADRON 0.5 MG PO ×3 (08:34→21:15)
[2024-12-17] MEDS: MUCINEX 600 MG PO ×2 (08:36→21:14)
[2024-12-17] MEDS: ZOVIRAX 400 MG PO ×2 (08:38→21:14)
[2024-12-17] MEDS: MYCELEX TROCHE 10 MG PO ×4 (08:38→21:14)
[2024-12-17] MEDS: PROTONIX 40 MG PO ×2 (08:38→21:14)
[2024-12-17] MEDS: TRICOR 145 MG PO (08:39)
[2024-12-17] MEDS: VFEND 200 MG PO ×2 (08:39→21:15)
[2024-12-17] MEDS: SENOKOT-S 1 TABLET PO ×2 (08:39→21:14)
[2024-12-17] MEDS: THERAGRAN 1 TABLET PO (08:39)
[2024-12-17] MEDS: VITAMIN C 500 MG PO (08:39)
[2024-12-17] MEDS: PREPARATION H MAX STRENGTH PAIN RELIEF CREAM 1 APPLIC RECTAL ×4 (08:39→21:16)
[2024-12-17] MEDS: TOPROL XL 25 MG PO (08:39)
[2024-12-17] MEDS: LEVAQUIN 500 MG PO (08:39)
[2024-12-17] MEDS: OCUVITE SOFTGEL 1 CAP PO ×2 (08:39→21:14)
[2024-12-17] MEDS: NOVOLOG FLEXPEN-LOW RESISTANCE SC ×3 (08:40→16:42)
[2024-12-17] MEDS: MIRALAX 17 GRAMS PO (08:40)
[2024-12-17] MEDS: NSS (PRESERVATIVE FREE) IV ×2 (08:43→21:15)
[2024-12-17] MEDS: VITAMIN B-12 1000 MCG PO (10:20)
--- NOTE | 2024-12-17 10:27 | W.PN.ONC2 ---
Today's Communication / Plan
-
discharge planning -will transfuse in prep for discharge
Impression
Impression
AML not in remission -C2 vidaza/venetoclex (started 12/07/24)
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
neutropenic fever -cultures negative to date -IV abx complete 12/14 -resolved
stomatitis -improved
hemorrhoid bleeding - resolved
Plan
Plan
would avoid suppositories with ANC <500
Continue antiinfectives ppx vori, acyclovir -transitioned toribio to levaquin since course of abx for NF complete
Transfuse for hgb <7, platelets <20 -- he is not a transplant candidate, and is not at risk for transfusion-associated GVHD, therefore, he does not need special blood products (only leukoreduced, which is standard practice)
Supportive care for stomatitis
Continue venetoclax 100mg/d due to interaction with voriconazole and severe pancytopenia
Has OP follow up with Dr. Genao 12/30/2024
Subjective/Objective
Subjective
no new complaints
Vital Signs:
Vital Signs
Temp Pulse Resp BP Pulse Ox
98.6 F 82 16 142/70 98
12/17/24 07:14 12/17/24 07:14 12/17/24 07:14 12/17/24 07:14 12/17/24 07:14
Lab Results:
Laboratory Data
WBC 0.4 10^3/uL (4.8-10.8) L* 12/17/24 05:47
Hgb 7.6 g/dL (13.0-18.0) L 12/17/24 05:47
Plt Count 17 10^3/uL (130-400) L* 12/17/24 05:47
PT 17.3 Sec (11.4-14.6) H 12/12/24 09:23
INR 1.38 12/12/24 09:23
APTT 34.7 Sec (23.4-35.0) 12/12/24 09:23
eGFR > 60.00 12/17/24 05:47
Physical Exam
HEENT: Other (stomatitis); No Jaundice
Cardiology: Normal Sinus Rhythm
Pulmonary: Clear
Extremities: Pulses Present and Edema
[2024-12-17 11:27] LABS: Glucose - Point of Care 117 mg/dl (70-99)
--- NOTE | 2024-12-17 14:15 | WOUNDNOTE ---
[facility] RN note: Patient seen during the prevalence study around 12pm. Prevalence nurse Sean requested to evaluate sacrum. Confirmed after reviewing chart, patient has a deep dermal stage 2 sacral pressure injury that was not documented on admission.
R buttocks with linear dermal opening suspect r/t adhesive vs friction. Patient is on a static air overlay and has an air chair cushion. Appetite poor. Liquor Bridge Operator Helper saw patient today. Patient can ambulate short distance with walker and 1 assist.
Instructed patient and pressure injury prevention measures and to take air chair cushion when discharged. Haider mason CM Merry Giles re: recommend an air mattress at SNF, patient has a sacral pressure injury. Dr. Reis approved amending
sacral wound care order. Discharge instructions updated. Care plan to be updated. Patient for possible discharge to SNF as early as today.
--- NOTE | 2024-12-17 14:15 | WOUNDNOTE ---
[facility] RN note: Patient seen during the prevalence study around 12pm. Prevalence nurse Sean requested to evaluate sacrum. Confirmed after reviewing chart, patient has a stage 3 sacral pressure injury that was not documented on admission. R buttocks
with linear dermal opening suspect r/t adhesive vs friction. Patient is on a static air overlay and has an air chair cushion. Appetite poor. Cell Preparer saw patient today. Patient can ambulate short distance with walker and 1 assist. Instructed
patient and pressure injury prevention measures and to take air chair cushion when discharged. Haider mason CM Merry Giles re: recommend an air mattress at SNF, patient has a sacral pressure injury. Dr. Reis approved amending sacral wound
care order. Discharge instructions updated. Care plan to be updated. Patient for possible discharge to SNF as early as today.
--- NOTE | 2024-12-17 15:10 | CM ---
Met with patient
transfusion today
discussed barriers for SNF placement with patient and
referrals entered in careport for SNF's
spoke with [facility] liaison who will check with Arleth GALAVIZ, Diya Albrecht & Radha Albrecht about transportation for transfusions. This is a barrier. She will get back to CM if they can accept.
tt oncology Paola Pineda-ok to hold dacogen (will need to document in note for facility to hold parenteral chemo until discharged to home post rehab)
Paola from oncology states cont oral venclexta
states that she can bring medications to facility
CM will also need to obtain insurance auth once bed is secured
PLAN: Continue SNF bed search, await liaison to call back
[2024-12-17] MEDS: NON-FORMULARY ITEM 1 UNIT PO (15:24)
--- NOTE | 2024-12-17 15:58 | PTCARENOTE ---
Pt received 1 unit of PRBC and 1 unit of platelets as ordered, see TAR. VSS, no current complaints. Plan of care ongoing.
[2024-12-17 16:41] LABS: Glucose - Point of Care 105 mg/dl (70-99)
[2024-12-17] MEDS: CRESTOR 40 MG PO (17:12)
[2024-12-17 20:43] LABS: Glucose - Point of Care 132 mg/dl (70-99)
[2024-12-18] VITALS (7 sets, daily range): BP systolic 111–152; BP diastolic 53–71; PULSE 85–98; O2SAT 98
[2024-12-18 04:50] LABS: Blood Urea Nitrogen 14 mg/dl (9-20); Calcium 7.9 mg/dl (8.4-10.2); Carbon Dioxide 25 mmol/L (22-30); Chloride 107 mmol/L (98-107); Estimated Creatinine Clearance 106 ml/min; Glucose 96 mg/dl (70-99); Magnesium 1.8 mg/dl (1.6-2.3); Potassium 3.7 mmol/L (3.5-5.1); Sodium 133 mmol/L (135-145); eGFR > 60.00
[2024-12-18 05:00] LABS: Hematocrit 24.5 % (39.0-52.0); Hemoglobin 8.6 g/dL (13.0-18.0); Mean Corp Hgb Conc. 35.1 g/dL (33.0-37.0); Mean Corpuscular Volume 87.2 fL (80.0-94.0); Platelet Count 11 10^3/uL (130-400); Red Cell Dist. Width 15.9 % (11.5-14.5)
--- NOTE | 2024-12-18 07:49 | W.PN.ONC2 ---
Today's Communication / Plan
-
1U SDP today
discharge planning -CBC every Saturday & at [facility] to be sent to [facility] for possible transfusion support based on results discussed with pt, , primary service, and case management
Impression
Impression
AML not in remission -C2 vidaza/venetoclex (started 12/07/24)
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
neutropenic fever -cultures negative to date -IV abx complete 12/14 -resolved
stomatitis -improved
hemorrhoid bleeding - resolved
Plan
Plan
would avoid suppositories with ANC <500
Continue antiinfectives ppx vori, acyclovir -transitioned toribio to levaquin since course of abx for NF complete
Transfuse for hgb <7, platelets <20 -- he is not a transplant candidate, and is not at risk for transfusion-associated GVHD, therefore, he does not need special blood products (only leukoreduced, which is standard practice)
Supportive care for stomatitis
Continue venetoclax 100mg/d due to interaction with voriconazole and severe pancytopenia -hypomethalating agent will remain on hold until returns home from rehab
Has OP follow up with Dr. Genao 12/30/2024
Subjective/Objective
Subjective
afebrile, no new complaints
denies bleeding
Vital Signs:
Vital Signs
Temp Pulse Resp BP Pulse Ox
98.5 F 88 16 141/71 96
12/18/24 07:42 12/18/24 07:42 12/18/24 07:42 12/18/24 07:42 12/18/24 07:42
Lab Results:
Laboratory Data
WBC 0.6 10^3/uL (4.8-10.8) L* 12/18/24 04:06
Hgb 8.6 g/dL (13.0-18.0) L 12/18/24 04:06
Plt Count 11 10^3/uL (130-400) L* D 12/18/24 04:06
PT 17.3 Sec (11.4-14.6) H 12/12/24 09:23
INR 1.38 12/12/24 09:23
APTT 34.7 Sec (23.4-35.0) 12/12/24 09:23
eGFR > 60.00 12/18/24 04:06
Physical Exam
HEENT: Other (stomatitis); No Jaundice
Pulmonary: Other (unlabored)
Extremities: Pulses Present and Edema
Neuro: Non Focal
Orders
Orders
Orders From Last 24 Hours
12/17/24 10:29
Blood Bank Products [* Blood Bank Products] Routine
12/17/24 10:30
Blood Bank Products [* Blood Bank Products] Routine
[2024-12-18 07:55] LABS: Glucose - Point of Care 99 mg/dl (70-99)
[2024-12-18] MEDS: NOVOLOG FLEXPEN-LOW RESISTANCE SC ×3 (08:04→16:17)
[2024-12-18] MEDS: DECADRON 0.5 MG PO ×3 (08:05→23:03)
[2024-12-18] MEDS: MIRALAX 17 GRAMS PO (08:05)
[2024-12-18] MEDS: MYCOSTATIN ORAL SUSPENSION 5 ML PO ×4 (08:05→23:06)
[2024-12-18] MEDS: PROTONIX 40 MG PO ×2 (08:06→20:24)
[2024-12-18] MEDS: TRICOR 145 MG PO (08:06)
[2024-12-18] MEDS: TOPROL XL 25 MG PO (08:06)
[2024-12-18] MEDS: VITAMIN B-12 1000 MCG PO (08:06)
[2024-12-18] MEDS: VITAMIN C 500 MG PO (08:06)
[2024-12-18] MEDS: ZOVIRAX 400 MG PO ×2 (08:06→20:22)
[2024-12-18] MEDS: MYCELEX TROCHE 10 MG PO ×4 (08:06→23:03)
[2024-12-18] MEDS: SENOKOT-S 1 TABLET PO ×2 (08:07→20:22)
[2024-12-18] MEDS: THERAGRAN 1 TABLET PO (08:07)
[2024-12-18] MEDS: LEVAQUIN 500 MG PO (08:07)
[2024-12-18] MEDS: MAGIC OR MIRACLE MOUTHWASH 5 ML PO ×4 (08:07→23:31)
[2024-12-18] MEDS: OCUVITE SOFTGEL 1 CAP PO ×2 (08:07→20:24)
[2024-12-18] MEDS: PREPARATION H MAX STRENGTH PAIN RELIEF CREAM 1 APPLIC RECTAL ×4 (08:07→23:04)
[2024-12-18] MEDS: NSS (PRESERVATIVE FREE) IV ×2 (08:07→22:18)
[2024-12-18] MEDS: VFEND 200 MG PO ×2 (08:07→20:22)
[2024-12-18] MEDS: MUCINEX 600 MG PO ×2 (08:07→20:22)
[2024-12-18 08:57] LABS: Nucleated Red Blood Cells % 0 % (-)
[2024-12-18 11:20] LABS: Glucose - Point of Care 110 mg/dl (70-99)
--- NOTE | 2024-12-18 14:40 | W.PN.HOSP.TC ---
Today's Communication/Plan
-
d/c planning
1 U plt transfusion
Assessment / Plan
Assessment / Plan
74M AML CAD DMII HTN HLD referred for evaluation severe anemia. Neutropenic, patient developed fever overnight concerning for possible sepsis. Started on empiric abx
#Neutropenic Fever
-Neutropenic precautions
-blood cultures NGTD
-urinalysis not suggestive UTI
-CXR no acute abn's
-trend temp, fever resolved last 100.4 12/12
-ID eval appreciated Empiric abx merrem transitioned back to home Levaquin 12/14, vanc discontinued with neg MRSA screen
- continue acyclovir and voriconazole prophylactically
#anemia likely 2/2 chronic anemia with hemorrhoidal bleed
# Acute Blood Loss Anemia
#Thrombocytopenia
#pancytopenia likely 2/2 Hx AML
- transfuse if Plt<20 or if bleeding Plt<50
- trend h/h Plt
- cont home Venclexta (reduced dose d/t pancytopenia and interaction voriconazole) as per Oncology
- follows with [facility]
- getting 1 u plt today for plt of 11k
- PICC placed as per oncology to assist with outpatient labwork and prn transfusions
- Chemo will be held until patient discharged from SNF rehab
#Acute Urinary Retention
- Hernandez discontinued 12/14 passed trial of void
- bladder scan prn per protocol
#Oral Thrush, ulcers
- magic mouthwash
- Nystatin Swish
#Hemorrhoids
- Preparation H ointment QID
#Constipation
- maintain on bowel regimen
#DM-II
- AccuCheck AC & HS
- SSI
- hold empagliflozin
#HLD
#CAD
- continue fenofibrate and rosuvastatin
#Essential HTN
- continue metoprolol
#Sacrum Pressure injury stage 2
- cont local wound care
Code status: full code
DVT prophylaxis: SCDs
Case discussed with CM and oncology. patient potentially can be accepted by facility if transfusion need/ schedule can be determined.
Anticipated Discharge: > 48 hours
Subjective/Interval History
-
Date of Service: December 18, 2024
no new complains overnight
afebrile
Objective Data
-
Labs:
Laboratory Results
12/18/24
04:06
WBC 0.6 L*
Hgb 8.6 L
Hct 24.5 L
Plt Count 11 L* D
Sodium 133 L
Potassium 3.7
Chloride 107
Carbon Dioxide 25
BUN 14
Creatinine 0.5 L
Glucose 96
Calcium 7.9 L
Vital Signs:
Vital Signs
Temp Pulse Resp BP Pulse Ox
98.5 F 88 16 141/71 96
12/18/24 07:42 12/18/24 07:42 12/18/24 07:42 12/18/24 07:42 12/18/24 07:42
I&O
12/17/24 12/18/24 12/19/24
06:59 06:59 06:59
Intake Total 1923 / 1923 1492 / 1492
Output Total 500 / 500 450 / 450
Balance 1423 / 1423 1042 / 1042
Review of Systems
-
Respiratory: Reports No Symptoms
Cardiac: Reports No Symptoms
Abdomen/GI: Reports No Symptoms
Physical Exam
-
General: Negative Appears in Distress
HEENT: Negative Oxygen
Neuro: Awake, Alert, Oriented and No Motor Deficits
--- NOTE | 2024-12-18 15:55 | CM ---
Met with patient and
spoke with [facility] liaison [facility] can accept. Saturday bed available-CM will need to obtain insurance auth
[facility] states that [facility] has a van, but they only can accept if they have a scheduled day/time for transfusions
also will need to bring in oral Venclexta
tt Paola Pineda onc as documentation IV chemo will be held until he is discharged to home post rehab
PLAN: [facility], will need to obtain ins authorization
[2024-12-18] MEDS: NON-FORMULARY ITEM 1 UNIT PO (16:05)
[2024-12-18 16:17] LABS: Glucose - Point of Care 130 mg/dl (70-99)
[2024-12-18] MEDS: CRESTOR 40 MG PO (17:22)
--- NOTE | 2024-12-18 19:18 | PTCARENOTE ---
Pt received 1 unit of platelets as ordered, see TAR. VSS, no current complaints, plan of care ongoing.
[2024-12-18 21:16] LABS: Glucose - Point of Care 125 mg/dl (70-99)
[2024-12-19] VITALS (7 sets, daily range): BP systolic 116–136; BP diastolic 55–71
--- NOTE | 2024-12-19 07:30 | FALL ---
Description of Fall: Pt used call oconnor, stating he had to use bathroom. Pt escorted to bathroom and instructed to ring when ready to return to bed. RN still at room and witnessed fall. Pt reports he was standing up to urinate and felt like he
needed to sit to have bowel movement. During process of turning, pt fell to Left side and fell laying on top of walker. No LOC. Pt reports hitting head but unable to verbalize where.
Injuries Noted: Pt initially denied pain. During RN handoff, pt reporting R hip pain.
Action Taken: DIRECTOR OF MARKETING COMMUNICATIONS notified. 3 staff in room to assist patient off floor and back to bed. Pt VSS.
Name of Provider Notified: Coby Vieira NP
[2024-12-19] MEDS: DECADRON 0.5 MG PO ×3 (07:36→21:42)
[2024-12-19] MEDS: VFEND 200 MG PO ×2 (07:36→19:32)
[2024-12-19] MEDS: PROTONIX 40 MG PO ×2 (07:36→19:32)
[2024-12-19] MEDS: MAGIC OR MIRACLE MOUTHWASH 5 ML PO ×4 (07:36→21:42)
[2024-12-19] MEDS: MYCOSTATIN ORAL SUSPENSION 5 ML PO ×4 (07:36→21:41)
[2024-12-19] MEDS: TRICOR 145 MG PO (07:36)
[2024-12-19] MEDS: MIRALAX 17 GRAMS PO (07:36)
[2024-12-19] MEDS: VITAMIN C 500 MG PO (07:37)
[2024-12-19] MEDS: TOPROL XL 25 MG PO (07:37)
[2024-12-19] MEDS: MYCELEX TROCHE 10 MG PO ×4 (07:37→21:42)
[2024-12-19] MEDS: TYLENOL 650 MG PO ×2 (07:37→22:46)
[2024-12-19] MEDS: LEVAQUIN 500 MG PO (07:37)
[2024-12-19] MEDS: ZOVIRAX 400 MG PO ×2 (07:37→19:31)
[2024-12-19] MEDS: OCUVITE SOFTGEL 1 CAP PO ×2 (07:37→19:32)
[2024-12-19] MEDS: VITAMIN B-12 1000 MCG PO (07:37)
[2024-12-19] MEDS: MUCINEX 600 MG PO ×2 (07:37→19:32)
[2024-12-19] MEDS: SENOKOT-S 1 TABLET PO ×2 (07:37→19:32)
[2024-12-19] MEDS: PREPARATION H MAX STRENGTH PAIN RELIEF CREAM 1 APPLIC RECTAL ×4 (07:37→21:43)
[2024-12-19] MEDS: THERAGRAN 1 TABLET PO (07:37)
[2024-12-19] MEDS: NSS (PRESERVATIVE FREE) IV ×2 (07:38→19:32)
[2024-12-19 07:48] LABS: Glucose - Point of Care 94 mg/dl (70-99)
[2024-12-19] MEDS: NOVOLOG FLEXPEN-LOW RESISTANCE SC ×2 (07:48→16:04)
[2024-12-19 08:55] LABS: Hematocrit 22.9 % (39.0-52.0); Hemoglobin 8.0 g/dL (13.0-18.0); Mean Corp Hgb Conc. 34.9 g/dL (33.0-37.0); Mean Corpuscular Volume 87.4 fL (80.0-94.0); Nucleated Red Blood Cells % 0 % (-); Platelet Count 5 10^3/uL (130-400); Red Cell Dist. Width 15.6 % (11.5-14.5)
[2024-12-19 09:28] LABS: Blood Urea Nitrogen 13 mg/dl (9-20); Calcium 7.7 mg/dl (8.4-10.2); Carbon Dioxide 25 mmol/L (22-30); Chloride 106 mmol/L (98-107); Estimated Creatinine Clearance 106 ml/min; Glucose 99 mg/dl (70-99); Magnesium 1.7 mg/dl (1.6-2.3); Potassium 3.3 mmol/L (3.5-5.1); Sodium 132 mmol/L (135-145); eGFR > 60.00
[2024-12-19] MEDS: ULTRAM 50 MG PO (09:58)
[2024-12-19 11:40] LABS: Glucose - Point of Care 176 mg/dl (70-99)
--- NOTE | 2024-12-19 11:46 | W.PN.HOSP.TC ---
Today's Communication/Plan
-
see note
discharge planning for snf rehab on Saturday
Assessment / Plan
Assessment / Plan
74M AML CAD DMII HTN HLD referred for evaluation severe anemia. Neutropenic, patient developed fever overnight concerning for possible sepsis. Started on empiric abx
#Neutropenic Fever - Resolved
-Neutropenic precautions
-blood cultures NGTD
-urinalysis not suggestive UTI
-CXR no acute abn's
-remains afebrile at this point,.
-ID eval appreciated Empiric abx merrem transitioned back to home Levaquin 12/14, vanc discontinued with neg MRSA screen
-continue acyclovir and voriconazole prophylactically
#anemia likely 2/2 chronic anemia with hemorrhoidal bleed
#Acute Blood Loss Anemia
#Thrombocytopenia
#pancytopenia likely 2/2 Hx AML
- transfuse if Plt<10 or if bleeding Plt<50
- trend h/h Plt
- cont home Venclexta (reduced dose d/t pancytopenia and interaction voriconazole) as per Oncology
- follows with [facility]
- PICC placed as per oncology to assist with outpatient labwork and prn transfusions
- Chemo will be held until patient discharged from SNF rehab
- Ordered 1 u plt for plt count of 5k
#Acute Urinary Retention
- Hernandez discontinued 12/14 passed trial of void
- bladder scan prn per protocol
#Mechanical fall 12/19
- 6:30 in the morning today patient had a mechanical fall
- Complaining of right-sided pelvic abdomen pain although on the left
- On exam there is no concern of intraperitoneal bleed. No visible ecchymosis. No concern of fracture.
- will do hip/pelvic xr if have further pain issues.
#Oral Thrush, ulcers
- magic mouthwash
- Nystatin Swish
#Hemorrhoids
- Preparation H ointment QID
#Constipation
- maintain on bowel regimen
#DM-II
- AccuCheck AC & HS
- SSI
- hold empagliflozin
#HLD
#CAD
- continue fenofibrate and rosuvastatin
#Essential HTN
- continue metoprolol
#Sacrum Pressure injury stage 2
- cont local wound care
Code status: full code
DVT prophylaxis: SCDs
Case discussed with CM and oncology. patient potentially can be accepted by facility if transfusion need/ schedule can be determined.
Anticipated Discharge: 24 - 48 hours
Subjective/Interval History
-
Date of Service: December 19, 2024
Patient had a mechanical fall in the morning at 6:30 AM today
Complaining some right sided pain around pelvic girdle although per RN patient fell on the left side
Denies of having any abdominal issues except feeling constipated
Objective Data
-
Labs:
Laboratory Results
12/19/24
08:21
WBC 0.4 L*
Hgb 8.0 L
Hct 22.9 L
Plt Count 5 L* D
Sodium 132 L
Potassium 3.3 L
Chloride 106
Carbon Dioxide 25
BUN 13
Creatinine 0.5 L
Glucose 99
Calcium 7.7 L
Vital Signs:
Vital Signs
Temp Pulse Resp BP Pulse Ox
98.4 F 78 16 120/55 96
12/19/24 07:37 12/19/24 07:37 12/19/24 07:37 12/19/24 07:37 12/19/24 09:39
I&O
12/18/24 12/19/24 12/20/24
06:59 06:59 06:59
Intake Total 1492 / 1492 735 / 735
Output Total 450 / 450
Balance 1042 / 1042 735 / 735
Review of Systems
-
Respiratory: Reports No Symptoms
Cardiac: Reports No Symptoms
Abdomen/GI: Reports Constipated
Physical Exam
-
General: Negative Appears in Distress
HEENT: Negative Oxygen
Neuro: Awake, Alert, Oriented and No Motor Deficits
[2024-12-19] MEDS: NOVOLOG FLEXPEN-LOW RESISTANCE 1 UNITS SC (12:31)
[2024-12-19 16:01] LABS: Glucose - Point of Care 131 mg/dl (70-99)
[2024-12-19] MEDS: NON-FORMULARY ITEM 1 UNIT PO (16:04)
[2024-12-19] MEDS: CRESTOR 40 MG PO (17:04)
[2024-12-19 22:04] LABS: Glucose - Point of Care 132 mg/dl (70-99)
[2024-12-20 07:46] LABS: Glucose - Point of Care 119 mg/dl (70-99)
[2024-12-20] MEDS: LEVAQUIN 500 MG PO (07:50)
[2024-12-20] MEDS: VITAMIN B-12 1000 MCG PO (07:50)
[2024-12-20] MEDS: PROTONIX 40 MG PO ×2 (07:50→22:40)
[2024-12-20] MEDS: MYCELEX TROCHE 10 MG PO ×4 (07:50→22:27)
[2024-12-20] MEDS: VITAMIN C 500 MG PO (07:50)
[2024-12-20] MEDS: TRICOR 145 MG PO (07:50)
[2024-12-20] MEDS: MUCINEX 600 MG PO ×2 (07:50→22:40)
[2024-12-20] MEDS: OCUVITE SOFTGEL 1 CAP PO ×2 (07:51→22:40)
[2024-12-20] MEDS: TOPROL XL 25 MG PO (07:51)
[2024-12-20] MEDS: ZOVIRAX 400 MG PO ×2 (07:51→22:27)
[2024-12-20] MEDS: VFEND 200 MG PO ×2 (07:51→22:27)
[2024-12-20] MEDS: MIRALAX PO (07:52)
[2024-12-20] MEDS: SENOKOT-S PO ×3 (07:52→22:36)
[2024-12-20] MEDS: NOVOLOG FLEXPEN-LOW RESISTANCE SC ×3 (07:52→16:19)
[2024-12-20] MEDS: THERAGRAN 1 TABLET PO (07:52)
[2024-12-20] MEDS: DECADRON 0.5 MG PO ×3 (07:53→22:28)
[2024-12-20] MEDS: MAGIC OR MIRACLE MOUTHWASH 5 ML PO ×4 (07:53→22:32)
[2024-12-20] MEDS: MYCOSTATIN ORAL SUSPENSION 5 ML PO ×4 (07:53→22:28)
[2024-12-20] MEDS: NSS (PRESERVATIVE FREE) IV ×2 (07:54→22:27)
[2024-12-20] MEDS: PREPARATION H MAX STRENGTH PAIN RELIEF CREAM 1 APPLIC RECTAL ×4 (07:55→22:33)
[2024-12-20 07:58] VITALS: BP 130/65
[2024-12-20 08:16] LABS: Hematocrit 21.0 % (39.0-52.0); Hemoglobin 7.3 g/dL (13.0-18.0); Mean Corp Hgb Conc. 34.8 g/dL (33.0-37.0); Mean Corpuscular Volume 86.1 fL (80.0-94.0); Platelet Count 7 10^3/uL (130-400); Red Cell Dist. Width 15.1 % (11.5-14.5)
[2024-12-20 08:56] LABS: Blood Urea Nitrogen 16 mg/dl (9-20); Calcium 8.1 mg/dl (8.4-10.2); Carbon Dioxide 24 mmol/L (22-30); Chloride 106 mmol/L (98-107); Estimated Creatinine Clearance 106 ml/min; Glucose 115 mg/dl (70-99); Potassium 3.4 mmol/L (3.5-5.1); Sodium 132 mmol/L (135-145); eGFR > 60.00
[2024-12-20] MEDS: FLOMAX 0.4 MG PO (10:10)
[2024-12-20 11:38] LABS: Urine Character Clear (Clear)
[2024-12-20 11:49] LABS: Urine Squamous Cell 0-2 /LPF (Few); Urine White Cell 0-2 /HPF (0-5)
--- NOTE | 2024-12-20 11:56 | W.PN.HOSP.TC ---
Today's Communication/Plan
-
see note
Assessment / Plan
Assessment / Plan
74M AML CAD DMII HTN HLD referred for evaluation severe anemia. Neutropenic, patient developed fever overnight concerning for possible sepsis. Started on empiric abx
#Neutropenic Fever - Resolved
- Neutropenic precautions
- blood cultures NGTD
- urinalysis not suggestive UTI
- CXR no acute abn's
- remains afebrile at this point,.
- ID eval appreciated Empiric abx merrem transitioned back to home Levaquin 12/14, vanc discontinued with neg MRSA screen
- continue acyclovir and voriconazole prophylactically
- Had isolated episode of fever again last night. Continue monitoring on current antibiotic regimen. Will consider escalating if continues to spike fever.
#anemia likely 2/2 chronic anemia with hemorrhoidal bleed
#Acute Blood Loss Anemia
#Thrombocytopenia
#pancytopenia likely 2/2 Hx AML
- transfuse if Plt<10 or if bleeding Plt<50
- trend h/h Plt
- cont home Venclexta (reduced dose d/t pancytopenia and interaction voriconazole) as per Oncology
- follows with [facility]
- PICC placed as per oncology to assist with outpatient labwork and prn transfusions
- Chemo will be held until patient discharged from SNF rehab
- Ordered 1 unit of platelet for count of 7k.
#Acute Urinary Retention
- Hernandez discontinued 12/14 passed trial of void
- Patient again having urinary retention overnight required straight cath x 2
- Flomax started patient have used it in the past
- If patient required to be straight cath again we will need to place Hernandez back
#Mechanical fall 12/19
- 6:30 in the morning today patient had a mechanical fall
- Complaining of right-sided pelvic abdomen pain although on the left
- On exam there is no concern of intraperitoneal bleed. No visible ecchymosis. No concern of fracture.
- will do hip/pelvic xr if have further pain issues.
#Oral Thrush, ulcers
- magic mouthwash
- Nystatin Swish
#Hemorrhoids
- Preparation H ointment QID
#Constipation
- improved with Bowel regimen
#DM-II
- AccuCheck AC & HS
- SSI
- hold empagliflozin
#HLD
#CAD
- continue fenofibrate and rosuvastatin
#Essential HTN
- continue metoprolol
#Sacrum Pressure injury stage 2
- cont local wound care
Code status: full code
DVT prophylaxis: SCDs
Case discussed with CM and oncology. patient potentially can be accepted by facility if transfusion need/ schedule can be determined.
Anticipated Discharge: Within 24 hours
Subjective/Interval History
-
Date of Service: December 20, 2024
Episode of fever last night
Having bowel movement
No abdominal pain/nausea/vomiting
Objective Data
-
Labs:
Laboratory Results
12/20/24
07:51
WBC 0.4 L*
Hgb 7.3 L
Hct 21.0 L
Plt Count 7 L* D
Sodium 132 L
Potassium 3.4 L
Chloride 106
Carbon Dioxide 24
BUN 16
Creatinine 0.4 L
Glucose 115 H
Calcium 8.1 L
Vital Signs:
Vital Signs
Temp Pulse Resp BP Pulse Ox
98.7 F 78 16 130/65 100
12/20/24 07:58 12/20/24 07:58 12/20/24 07:58 12/20/24 07:58 12/20/24 10:17
I&O
12/19/24 12/20/24 12/21/24
06:59 06:59 06:59
Intake Total 735 / 735 788 / 788
Output Total 425 / 425
Balance 735 / 735 363 / 363
Review of Systems
-
Respiratory: Reports No Symptoms
Cardiac: Reports No Symptoms
Abdomen/GI: Reports No Symptoms
Physical Exam
-
General: Negative Appears in Distress
HEENT: Negative Oxygen
GI: Soft, Nontender, Nondistended and Normal Bowel Sounds
Musculoskeletal: Other (No left hip echymosis)
Neuro: Awake, Alert, Oriented and No Motor Deficits
[2024-12-20 12:11] LABS: Glucose - Point of Care 137 mg/dl (70-99)
[2024-12-20 12:17] VITALS: BP 121/52
[2024-12-20 12:37] VITALS: BP 119/51
[2024-12-20 12:58] VITALS: BP 123/47
[2024-12-20 15:35] VITALS: BP 148/65
[2024-12-20 15:57] LABS: Glucose - Point of Care 116 mg/dl (70-99)
[2024-12-20] MEDS: TYLENOL 650 MG PO (16:13)
[2024-12-20] MEDS: NON-FORMULARY ITEM 1 UNIT PO (16:16)
[2024-12-20] MEDS: CRESTOR 40 MG PO (17:29)
[2024-12-20 21:47] LABS: Glucose - Point of Care 151 mg/dl (70-99)
[2024-12-20] MEDS: MUCINEX PO (22:27)
[2024-12-20] MEDS: OCUVITE SOFTGEL PO (22:28)
[2024-12-20] MEDS: PROTONIX PO (22:29)
[2024-12-20 23:50] VITALS: BP 115/54
[2024-12-21] VITALS (9 sets, daily range): BP systolic 104–136; BP diastolic 45–87
[2024-12-21 04:48] LABS: Blood Urea Nitrogen 16 mg/dl (9-20); Calcium 7.9 mg/dl (8.4-10.2); Carbon Dioxide 26 mmol/L (22-30); Chloride 106 mmol/L (98-107); Estimated Creatinine Clearance 106 ml/min; Glucose 111 mg/dl (70-99); Potassium 3.3 mmol/L (3.5-5.1); Sodium 133 mmol/L (135-145); eGFR > 60.00
[2024-12-21 04:49] LABS: Hematocrit 17.7 % (39.0-52.0); Hemoglobin 6.3 g/dL (13.0-18.0); Mean Corp Hgb Conc. 35.6 g/dL (33.0-37.0); Mean Corpuscular Volume 85.9 fL (80.0-94.0); Platelet Count 8 10^3/uL (130-400); Red Cell Dist. Width 15.0 % (11.5-14.5)
--- NOTE | 2024-12-21 05:04 | W.PN.UPDATE ---
Update Note
Progress Note Update
Critical value received for AM labs: Hgb 6.3/Hct 17.7, ordered 1 unit PRBC's. Platelets 8, ordered 1 units of platelets.
[2024-12-21 08:14] LABS: Glucose - Point of Care 117 mg/dl (70-99)
[2024-12-21] MEDS: MAGIC OR MIRACLE MOUTHWASH 5 ML PO ×4 (08:41→21:35)
[2024-12-21] MEDS: NOVOLOG FLEXPEN-LOW RESISTANCE SC ×2 (08:43→16:32)
[2024-12-21] MEDS: MYCELEX TROCHE 10 MG PO ×4 (08:44→21:48)
[2024-12-21] MEDS: VFEND 200 MG PO ×2 (08:44→21:33)
[2024-12-21] MEDS: LEVAQUIN 500 MG PO (08:44)
[2024-12-21] MEDS: TOPROL XL 25 MG PO (08:44)
[2024-12-21] MEDS: THERAGRAN 1 TABLET PO (08:44)
[2024-12-21] MEDS: MYCOSTATIN ORAL SUSPENSION 5 ML PO ×4 (08:44→21:48)
[2024-12-21] MEDS: ZOVIRAX 400 MG PO ×2 (08:44→21:34)
[2024-12-21] MEDS: DECADRON 0.5 MG PO ×3 (08:44→21:34)
[2024-12-21] MEDS: VITAMIN B-12 1000 MCG PO (08:45)
[2024-12-21] MEDS: MUCINEX 600 MG PO ×2 (08:45→21:28)
[2024-12-21] MEDS: FLOMAX 0.4 MG PO (08:45)
[2024-12-21] MEDS: TRICOR 145 MG PO (08:45)
[2024-12-21] MEDS: OCUVITE SOFTGEL 1 CAP PO ×2 (08:45→21:29)
[2024-12-21] MEDS: VITAMIN C 500 MG PO (08:45)
[2024-12-21] MEDS: PROTONIX 40 MG PO ×2 (08:48→21:31)
[2024-12-21] MEDS: PREPARATION H MAX STRENGTH PAIN RELIEF CREAM 1 APPLIC RECTAL ×3 (08:48→17:18)
[2024-12-21] MEDS: NSS (PRESERVATIVE FREE) IV ×2 (08:49→21:29)
[2024-12-21] MEDS: MIRALAX PO (08:57)
[2024-12-21] MEDS: SENOKOT-S PO ×2 (08:57→21:33)
--- NOTE | 2024-12-21 10:49 | PN.CDI ---
CDI
- -
CDI:
Physician Documentation Request
Admit Date: 12/10/24 16:38
Dear Doctor Larry,
Please review the following and provide your response in the progress notes.
Clinical Indicators:
Pt admitted with Chemo induced pancytopenia
Potassium levels are as below /Per MAR pt did get Potassium phos on 12/12 & 12/13
12/12/24 12/19/24 12/20/24
09:23 08:21 07:51
Potassium 3.2 L 3.3 L 3.4 L
Based on the above, could you clarify in the progress notes, the appropriate diagnosis, if significant, that supports the above abnormalities and additional evaluation, monitoring and/or treatment rendered:
Hypokalemia
Abnormal lab value
Other ( please specify)
Use of terms such as suspected, likely, concern for, or probable (associated with a specific diagnosis that is being evaluated, monitored, or treated as if it exists) are acceptable and can be coded in the inpatient setting, when documented at the
time of discharge.
Thank you,
Valentina Cross RN
CDI Specialist
[place] [facility]
Please use your independent medical judgment in providing your response.
--- NOTE | 2024-12-21 10:51 | PN.CDI ---
CDI
- -
CDI:
Physician Documentation Request
Admit Date: 12/10/24 16:38
Dear Doctor Larry,
Please review the following and provide your response in the progress notes.
Clinical Indicators:
Pt admitted with Chemo induced pancytopenia
Sodium levels are as below
12/12/24 12/14/24 12/15/24
09:23 06:59 05:34
Sodium 134 L 134 L 134 L
12/18/24 12/19/24 12/20/24
04:06 08:21 07:51
Sodium 133 L 132 L 132 L
12/21/24
04:11
Sodium 133 L
Based on the above, could you clarify in the progress notes, the appropriate diagnosis, if significant, that supports the above abnormalities and additional evaluation, monitoring and/or treatment rendered:
Hyponatremia
Abnormal lab value
Other ( please specify)
Use of terms such as suspected, likely, concern for, or probable (associated with a specific diagnosis that is being evaluated, monitored, or treated as if it exists) are acceptable and can be coded in the inpatient setting, when documented at the
time of discharge.
Thank you,
Valentina Cross RN
CDI Specialist
[place] [facility]
Please use your independent medical judgment in providing your response.
--- NOTE | 2024-12-21 10:59 | W.PN.HOSP.TC ---
Addendum entered and electronically signed by Sánchez Juarez MD 12/22/24 17:18:
Add to diagnosis list:
Hypokalemia - replace prn
Hyponatremia - monitor
Original Note:
Today's Communication/Plan
-
ID eval
low placement
symptomatic care for diarrhea
d/c planning
Assessment / Plan
Assessment / Plan
74M AML CAD DMII HTN HLD referred for evaluation severe anemia. Neutropenic, patient developed fever overnight concerning for possible sepsis. Started on empiric abx
#Neutropenic Fever
- Neutropenic precautions
- blood cultures NGTD
- urinalysis not suggestive UTI
- CXR no acute abn's
- remains afebrile at this point,.
- ID eval appreciated Empiric abx merrem transitioned back to home Levaquin 12/14, vanc discontinued with neg MRSA screen
-continue acyclovir and voriconazole prophylactically
- Patient continued to have episodic fever. ID re-evaluation requested
#anemia likely 2/2 chronic anemia with hemorrhoidal bleed
#Acute Blood Loss Anemia
#Thrombocytopenia
#pancytopenia likely 2/2 Hx AML
- transfuse if Plt<10 or if bleeding Plt<50
- trend h/h Plt
- cont home Venclexta (reduced dose d/t pancytopenia and interaction voriconazole) as per Oncology
- follows with [facility]
- PICC placed as per oncology to assist with outpatient labwork and prn transfusions
- Chemo will be held until patient discharged from SNF rehab
-Continues to require PRBC/platelet transfusion. Getting 1 unit platelet and 1 unit PRBC today again.
#Acute Urinary Retention
- Low discontinued 12/14 passed trial of void
- Patient continued to have recurrence of urinary retention and required straight cath. Low catheter replaced
#Mechanical fall 12/19
- 6:30 in the morning today patient had a mechanical fall
- Complaining of right-sided pelvic abdomen pain although on the left
- On exam there is no concern of intraperitoneal bleed. No visible ecchymosis. No concern of fracture.
- will do hip/pelvic xr if have further pain issues.
#Oral Thrush, ulcers
- magic mouthwash
- Nystatin Swish
#Hemorrhoids
- Preparation H ointment QID
#Constipation
- improved with Bowel regimen
#DM-II
- AccuCheck AC & HS
- SSI
- hold empagliflozin
#HLD
#CAD
- continue fenofibrate and rosuvastatin
#Essential HTN
- continue metoprolol
#Sacrum Pressure injury stage 2
- cont local wound care
Code status: full code
DVT prophylaxis: SCDs
Total time spent : 54 mins
Anticipated Discharge: Within 24 hours
Subjective/Interval History
-
Date of Service: December 21, 2024
Continues to have difficulty voiding
Having some diarrhea
No other issues reported
Objective Data
-
Labs:
Laboratory Results
12/21/24
04:11
WBC 0.3 L*
Hgb 6.3 L*
Hct 17.7 L*
Plt Count 8 L*
Sodium 133 L
Potassium 3.3 L
Chloride 106
Carbon Dioxide 26
BUN 16
Creatinine 0.4 L
Glucose 111 H
Calcium 7.9 L
Vital Signs:
Vital Signs
Temp Pulse Resp BP Pulse Ox
99.2 F 97 18 129/68 99
12/21/24 08:24 12/21/24 08:44 12/21/24 08:24 12/21/24 08:44 12/21/24 08:24
I&O
12/20/24 12/21/24 12/22/24
06:59 06:59 06:59
Intake Total 788 / 788 970 / 970
Output Total 425 / 425 655 / 655
Balance 363 / 363 315 / 315
Review of Systems
-
Respiratory: Reports No Symptoms
Cardiac: Reports No Symptoms
Abdomen/GI: Reports No Symptoms
Physical Exam
-
General: Negative Appears in Distress
HEENT: Negative Oxygen
GI: Soft, Nontender, Nondistended and Normal Bowel Sounds
Musculoskeletal: Other (No left hip echymosis)
Neuro: Awake, Alert, Oriented and No Motor Deficits
[2024-12-21 11:36] LABS: Glucose - Point of Care 153 mg/dl (70-99)
[2024-12-21] MEDS: NOVOLOG FLEXPEN-LOW RESISTANCE 1 UNITS SC (11:49)
--- NOTE | 2024-12-21 12:14 | W.PN.ID1 ---
Date of Service
Date of Service: December 21, 2024
Today's Communication
Begin cefepime 2 gm IV q.8 hours. Discontinue further levofloxacin.
Assessment / Plan
# Neutropenic fever
- Fevers have returned over the past 24 to 48 hours.
- Patient remains profoundly neutropenic
# Rectal bleeding from hemorrhoids, resolved
# Recent dx of AML on cycle 2 Vidaza, Venetoclax, ppx acyclovir, levofloxacin, voriconazole
# Prolonged neutropenia due to AML
# Oral stomatitis associated with AML
# Pancytopenia, frequent transfusions
Recommendations:
Repeat blood cultures obtained.
Discontinue further levofloxacin and begin cefepime 2 gm IV q.8 hours.
Monitor temperature curve.
Follow for recovery of marrow.
����������������������������������������������������������
Chief Complaint
-: Fever
Subjective / Review of Systems
Asked to see patient again by primary service secondary to recurrence of fevers. At present, patient denies any pain, although notes he fell several days ago.
Vital Signs / Physical Exam
Vital Signs
Vital Signs
Temp Pulse Resp BP Pulse Ox
98.9 F 82 17 108/52 100
12/21/24 11:43 12/21/24 11:43 12/21/24 11:43 12/21/24 11:43 12/21/24 11:43
Tmax 102 12/20/2024 15:35
Physical Exam
Constitutional: No Acute Distress and Comfortable
Eyes: Sclera Anicteric
Oropharyngeal: Ulcers (tongue and oral mucosa at left angle of mouth)
Cardiovascular: Regular Rate and S1/S2; Negative S3/S4
Pulmonary: Clear
Gastrointestinal: Soft, Non Tender, Non Distended and Normal Bowel Sounds
Extremities: Edema (BLE); Negative Cyanosis or Erythema
Skin: Negative Rash
Neurological: Awake, Alert and AO x 3
Objective Data
Lab Data
Lab Results
12/21/24 04:11
12/21/24 04:11
PT 17.3 Sec (11.4-14.6) H 12/12/24 09:23
INR 1.38 12/12/24 09:23
APTT 34.7 Sec (23.4-35.0) 12/12/24 09:23
Estimated Creat Clear 106 ml/min 12/21/24 04:11
Total Bilirubin 0.9 mg/dl (0.2-1.3) 12/12/24 09:23
AST 39 U/L (17-59) 12/12/24 09:23
ALT 29 U/L (0-50) 12/12/24 09:23
Alkaline Phosphatase 77 U/L (38-126) 12/12/24 09:23
Most recent labs reviewed.
Micro Results:
12/20/24 08:12 Blood Culture - Preliminary
Blood/Venous No Growth in 24 hours- Final report to follow
12/20/24 23:14 Blood Culture - Pending
Blood/Venous
12/11/24 11:01 Blood Culture - Final
Blood/Venous No Growth - Final Report
12/11/24 10:12 Blood Culture - Final
Blood/Venous No Growth - Final Report
12/11/24 15:46 Urine Culture - Final
Urine NO GROWTH
12/11/24 12:57 Nasal Screen MRSA (PCR) - Final
Nose MRSA not detected - performed by PCR methodology.
Imaging:
12/11/24 CXR: No areas of airspace disease. Tiny left pleural effusion.
Care Review
[facility] with: [facility]
--- NOTE | 2024-12-21 13:42 | CM ---
patient seen at bedside
await updated PT/OT notes to initiate auth for SNF
Radha Albrecht NPI #: [id number]
Dr. Yony Davenport NPI #: [id number]
ID consult-fever
patient receiving blood transfusion
patient now with low
updated [facility]
PICC/CXR info faxed to [facility]
PLAN: SNF, will await updated PT/OT notes to obtain auth
[2024-12-21] MEDS: MAXIPIME 2000 MG IV ×2 (13:56→21:41)
[2024-12-21] MEDS: STERILE WATER FOR INJECTION 10 ML IV ×2 (13:57→21:41)
[2024-12-21] MEDS: NON-FORMULARY ITEM 1 UNIT PO (16:23)
[2024-12-21 16:30] LABS: Glucose - Point of Care 127 mg/dl (70-99)
[2024-12-21] MEDS: IMODIUM LIQUID 1 MG PO ×2 (16:32→21:51)
--- NOTE | 2024-12-21 16:47 | W.PN.ONC2 ---
Today's Communication / Plan
-
Management of recurrent neutropenic fever as per ID.
Impression
Impression
AML not in remission -C2 vidaza/venetoclex (started 12/07/24)
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
neutropenic fever -cultures negative to date -IV abx complete 12/14 - Recurrent as of 12/19 at 23:33
stomatitis -improved
hemorrhoid bleeding - resolved
Plan
Plan
We had hoped to d/c pt but unable to do so with recrudescence of fever after about 5 days after completing abx
Abx as per ID, appreciate Dr. Green input.
As previously:
Would avoid suppositories with ANC <500
Transfuse for hgb <7, platelets <20 -- he is not a transplant candidate, and is not at risk for transfusion-associated GVHD, therefore, he does not need special blood products (only leukoreduced, which is standard practice)
Supportive care for stomatitis
Continue venetoclax 100mg/d due to interaction with voriconazole and severe pancytopenia -hypomethalating agent will remain on hold until returns home from rehab
Has OP follow up with Dr. Genao 12/30/2024
Subjective/Objective
Chief Complaint
Heme/Onc follow up of AML complicated by neutropenic fever
Subjective
Wants to go home; however, febrile to 102 yesterday at 15:35 and to 100.1 today at 13:53.
Vital Signs:
Vital Signs
Temp Pulse Resp BP Pulse Ox
99.4 F 84 16 124/87 100
18 15:32 12/21/24 15:32 12/21/24 15:32 12/21/24 15:32 12/21/24 15:32
Lab Results:
Laboratory Data
WBC 0.3 10^3/uL (4.8-10.8) L* 12/21/24 04:11
Hgb 6.3 g/dL (13.0-18.0) L* 12/21/24 04:11
Plt Count 8 10^3/uL (130-400) L* 12/21/24 04:11
PT 17.3 Sec (11.4-14.6) H 12/12/24 09:23
INR 1.38 12/12/24 09:23
APTT 34.7 Sec (23.4-35.0) 12/12/24 09:23
eGFR > 60.00 12/21/24 04:11
[2024-12-21] MEDS: CRESTOR 40 MG PO (17:17)
[2024-12-21 21:19] LABS: Glucose - Point of Care 148 mg/dl (70-99)
[2024-12-21] MEDS: PREPARATION H MAX STRENGTH PAIN RELIEF CREAM RECTAL ×2 (21:49→21:54)
[2024-12-22] VITALS (8 sets, daily range): BP systolic 117–143; BP diastolic 51–61; PULSE 90–92; O2SAT 98
[2024-12-22] MEDS: MAXIPIME 2000 MG IV ×3 (05:51→22:53)
[2024-12-22] MEDS: STERILE WATER FOR INJECTION 10 ML IV ×3 (05:51→22:53)
[2024-12-22 07:16] LABS: Blood Urea Nitrogen 16 mg/dl (9-20); Calcium 7.9 mg/dl (8.4-10.2); Carbon Dioxide 25 mmol/L (22-30); Chloride 107 mmol/L (98-107); Estimated Creatinine Clearance 106 ml/min; Glucose 99 mg/dl (70-99); Potassium 3.3 mmol/L (3.5-5.1); Sodium 134 mmol/L (135-145); eGFR > 60.00
[2024-12-22 07:26] LABS: Hematocrit 20.9 % (39.0-52.0); Hemoglobin 7.4 g/dL (13.0-18.0); Mean Corp Hgb Conc. 35.4 g/dL (33.0-37.0); Mean Corpuscular Volume 85.0 fL (80.0-94.0); Platelet Count 10 10^3/uL (130-400); Red Cell Dist. Width 15.2 % (11.5-14.5)
[2024-12-22 07:47] LABS: Glucose - Point of Care 105 mg/dl (70-99)
[2024-12-22] MEDS: DECADRON 0.5 MG PO ×3 (08:50→22:52)
[2024-12-22] MEDS: MYCOSTATIN ORAL SUSPENSION 5 ML PO ×4 (08:51→22:53)
[2024-12-22] MEDS: TOPROL XL 25 MG PO (08:51)
[2024-12-22] MEDS: OCUVITE SOFTGEL 1 CAP PO ×2 (08:51→20:09)
[2024-12-22] MEDS: VITAMIN B-12 1000 MCG PO (08:51)
[2024-12-22] MEDS: PROTONIX 40 MG PO ×2 (08:51→20:08)
[2024-12-22] MEDS: MAGIC OR MIRACLE MOUTHWASH 5 ML PO ×4 (08:52→22:53)
[2024-12-22] MEDS: TRICOR 145 MG PO (08:52)
[2024-12-22] MEDS: ZOVIRAX 400 MG PO ×2 (08:52→20:08)
[2024-12-22] MEDS: VITAMIN C 500 MG PO (08:52)
[2024-12-22] MEDS: MUCINEX 600 MG PO ×2 (08:52→20:09)
[2024-12-22] MEDS: FLOMAX 0.4 MG PO (08:52)
[2024-12-22] MEDS: THERAGRAN 1 TABLET PO (08:52)
[2024-12-22] MEDS: MYCELEX TROCHE 10 MG PO ×4 (08:52→22:53)
[2024-12-22] MEDS: VFEND 200 MG PO ×2 (08:52→20:09)
[2024-12-22] MEDS: NOVOLOG FLEXPEN-LOW RESISTANCE SC ×2 (08:53→16:20)
[2024-12-22] MEDS: SENOKOT-S PO ×3 (08:53→20:13)
[2024-12-22] MEDS: MIRALAX PO (08:53)
[2024-12-22] MEDS: NSS (PRESERVATIVE FREE) IV ×2 (08:53→20:09)
[2024-12-22] MEDS: KCL 20 MEQ PO (08:54)
[2024-12-22] MEDS: PREPARATION H MAX STRENGTH PAIN RELIEF CREAM 1 APPLIC RECTAL ×4 (09:12→22:54)
--- NOTE | 2024-12-22 09:38 | W.PN.ONC ---
Today's Communication / Plan
-
stop venetoclax
monitor CBC
BM biopsy in 1-2 weeks
Impression
Impression
AML not in remission -C2 vidaza/venetoclex (started 12/07/24)
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
neutropenic fever -cultures negative to date -IV abx complete 12/14 - Recurrent as of 12/19 at 23:33
stomatitis -improved
hemorrhoid bleeding - resolved
Plan
Plan
Discussed ongoing issues with patient/
Unclear if ongoing cytopenias are related to leukemia or venetocloax
Normally would consider updating bm biopsy at this time -- if BM biopsy showed ongoing leukemia despite two cycle of aza/carito, would consider hospice, which we discussed. If BM biopsy showed remission, would stop carito to allow count recovery
Therefore, will stop venetoclax and observe counts
Will likely benefit from another BM biopsy in the next week or two, TBD
Continue abx, transfusion support, etc
OOB/PT for weakness/deconditioning
As previously:
Would avoid suppositories with ANC <500
Transfuse for hgb <7, platelets <20 -- he is not a transplant candidate, and is not at risk for transfusion-associated GVHD, therefore, he does not need special blood products (only leukoreduced, which is standard practice)
Supportive care for stomatitis
Continue venetoclax 100mg/d due to interaction with voriconazole and severe pancytopenia -hypomethalating agent will remain on hold until returns home from rehab
Has OP follow up with Dr. Genao 12/30/2024
Subjective/Objective
Subjective/Objective
frustrated w/ prolonged hospital stay
eating a bit better, weak overall
Vital Signs:
Vital Signs
Temp Pulse Resp BP Pulse Ox
99.3 F 87 15 143/58 100
12/22/24 07:35 12/22/24 08:51 12/22/24 07:35 12/22/24 08:51 12/22/24 07:35
Lab Results:
Laboratory Data
WBC 0.4 10^3/uL (4.8-10.8) L* 12/22/24 06:35
Hgb 7.4 g/dL (13.0-18.0) L 12/22/24 06:35
Plt Count 10 10^3/uL (130-400) L* D 12/22/24 06:35
PT 17.3 Sec (11.4-14.6) H 12/12/24 09:23
INR 1.38 12/12/24 09:23
APTT 34.7 Sec (23.4-35.0) 12/12/24 09:23
eGFR > 60.00 12/22/24 06:35
[2024-12-22 11:40] LABS: Glucose - Point of Care 151 mg/dl (70-99)
[2024-12-22] MEDS: NOVOLOG FLEXPEN-LOW RESISTANCE 1 UNITS SC (12:22)
--- NOTE | 2024-12-22 15:27 | W.PN.HOSP.TC ---
Today's Communication/Plan
-
continue monitoring blood count
1u plt ordered
abx per ID
venclexta stopped
Assessment / Plan
Assessment / Plan
74M AML CAD DMII HTN HLD referred for evaluation severe anemia. Neutropenic, patient developed fever overnight concerning for possible sepsis. Started on empiric abx
#Neutropenic Fever
- Neutropenic precautions
- blood cultures NGTD
- urinalysis not suggestive UTI
- CXR no acute abn's
-continue acyclovir and voriconazole prophylactically
- Patient have recurrence of fever. ID re-evaluated and started on cefepime
#anemia likely 2/2 chronic anemia with hemorrhoidal bleed
#Acute Blood Loss Anemia
#Thrombocytopenia
#pancytopenia likely 2/2 Hx AML
- transfuse if Plt<10 or if bleeding Plt<50
- follows with [facility]
- Oncology evaluated in light of persistent neutropenia/thrombocytopenia and discussed possibility of need of hospice if not improved.
- Venclexta also discontinued to see if patient have any bone marrow response
- Providing 1 unit of platelet again for platelet count of 10k today
-Oncology considering repeat bone marrow biopsy to further gauge response of chemotherapy
#Acute Urinary Retention
- Low discontinued 12/14 passed trial of void
- developed urinary retention, low catheter replaced on 12.21
#Mechanical fall 12/19
- Complaining of right-sided pelvic abdomen pain although on the left
- On exam there is no concern of intraperitoneal bleed. No visible ecchymosis. No concern of fracture.
- will do hip/pelvic xr if have further pain issues.
#Oral Thrush, ulcers
- magic mouthwash
- Nystatin Swish
#Hemorrhoids
- Preparation H ointment QID
#Constipation
- improved with Bowel regimen
#DM-II
- AccuCheck AC & HS
- SSI
- hold empagliflozin
#HLD
#CAD
- continue fenofibrate and rosuvastatin
#Essential HTN
- continue metoprolol
#Sacrum Pressure injury stage 2
- cont local wound care
#Hypokalemia - replace PRN
#Hypomagnesemia - monitr
Code status: full code
DVT prophylaxis: SCDs
Total time spent ; 53 mins
Anticipated Discharge: 24 - 48 hours
Subjective/Interval History
-
Date of Service: December 22, 2024
Objective Data
-
Labs:
Laboratory Results
12/22/24
06:35
WBC 0.4 L*
Hgb 7.4 L
Hct 20.9 L*
Plt Count 10 L* D
Sodium 134 L
Potassium 3.3 L
Chloride 107
Carbon Dioxide 25
BUN 16
Creatinine 0.5 L
Glucose 99
Calcium 7.9 L
Vital Signs:
Vital Signs
Temp Pulse Resp BP Pulse Ox
98.6 F 85 17 131/61 98
12/22/24 15:26 12/22/24 15:26 12/22/24 15:26 12/22/24 15:26 12/22/24 15:26
I&O
12/21/24 12/22/24 12/23/24
06:59 06:59 06:59
Intake Total 970 / 970 1518 / 1518 550 / 550
Output Total 655 / 655 575 / 575
Balance 315 / 315 943 / 943 550 / 550
--- NOTE | 2024-12-22 16:14 | W.PN.ID1 ---
Date of Service
Date of Service: December 22, 2024
Today's Communication
Continue cefepime.
Assessment / Plan
# Neutropenic fever
- Fevers have returned over the past 24 to 48 hours.
- Patient remains profoundly neutropenic
# Rectal bleeding from hemorrhoids, resolved
# Recent dx of AML on cycle 2 Vidaza, Venetoclax, ppx acyclovir, levofloxacin, voriconazole
# Prolonged neutropenia due to AML
# Oral stomatitis associated with AML
# Pancytopenia, frequent transfusions
Recommendations:
Repeat blood cultures obtained.
Continue cefepime 2 gm IV q.8 hours.
Monitor temperature curve.
Follow for recovery of marrow.
����������������������������������������������������������
Chief Complaint
-: Fever and Other (Febrile neutropenia)
Subjective / Review of Systems
Review of Systems: No Fever
Vital Signs / Physical Exam
Vital Signs
Vital Signs
Temp Pulse Resp BP Pulse Ox
98.6 F 85 17 131/61 98
12/22/24 15:26 12/22/24 15:26 12/22/24 15:26 12/22/24 15:26 12/22/24 15:26
Physical Exam
Constitutional: No Acute Distress and Comfortable
Eyes: Sclera Anicteric
Oropharyngeal: Ulcers (tongue and oral mucosa at left angle of mouth)
Cardiovascular: Regular Rate and S1/S2; Negative S3/S4
Pulmonary: Clear
Gastrointestinal: Soft, Non Tender, Non Distended and Normal Bowel Sounds
Extremities: Edema (BLE); Negative Cyanosis or Erythema
Skin: Negative Rash
Neurological: Awake, Alert and AO x 3
Objective Data
Lab Data
Lab Results
12/22/24 06:35
12/22/24 06:35
PT 17.3 Sec (11.4-14.6) H 12/12/24 09:23
INR 1.38 12/12/24 09:23
APTT 34.7 Sec (23.4-35.0) 12/12/24 09:23
Estimated Creat Clear 106 ml/min 12/22/24 06:35
Total Bilirubin 0.9 mg/dl (0.2-1.3) 12/12/24 09:23
AST 39 U/L (17-59) 12/12/24 09:23
ALT 29 U/L (0-50) 12/12/24 09:23
Alkaline Phosphatase 77 U/L (38-126) 12/12/24 09:23
Most recent labs reviewed.
Micro Results:
12/20/24 08:12 Blood Culture - Preliminary
Blood/Venous No Growth in 48 hours- Final report to follow
12/20/24 23:14 Blood Culture - Preliminary
Blood/Venous No Growth in 24 hours- Final report to follow
12/11/24 11:01 Blood Culture - Final
Blood/Venous No Growth - Final Report
12/11/24 10:12 Blood Culture - Final
Blood/Venous No Growth - Final Report
12/11/24 15:46 Urine Culture - Final
Urine NO GROWTH
12/11/24 12:57 Nasal Screen MRSA (PCR) - Final
Nose MRSA not detected - performed by PCR methodology.
Imaging:
12/16/2024 CXR (portable): no radiographic evidence of acute cardiopulmonary abnormality. Please see full dictation for additional detail.
12/11/24 CXR: No areas of airspace disease. Tiny left pleural effusion.
[2024-12-22 16:20] LABS: Glucose - Point of Care 148 mg/dl (70-99)
[2024-12-22] MEDS: CRESTOR 40 MG PO (17:36)
[2024-12-22 21:26] LABS: Glucose - Point of Care 134 mg/dl (70-99)
--- NOTE | 2024-12-23 04:38 | DOWNTIME ---
There was a [employer] Downtime on 12/23/2024 from 0100 to 12/23/2024 at 0235. Downtime documentation of patient's care, including medication administrations, has been reconciled in the electronic record per guidelines. Refer to the
patient's paper chart under the miscellaneous tab to see printed paper medication records and downtime forms.
[2024-12-23] MEDS: MAXIPIME 2000 MG IV ×3 (05:53→21:54)
[2024-12-23] MEDS: STERILE WATER FOR INJECTION 10 ML IV ×3 (05:53→21:54)
[2024-12-23 05:57] LABS: Hematocrit 19.6 % (39.0-52.0); Hemoglobin 6.8 g/dL (13.0-18.0); Mean Corp Hgb Conc. 34.7 g/dL (33.0-37.0); Mean Corpuscular Volume 84.8 fL (80.0-94.0); Platelet Count 13 10^3/uL (130-400); Red Cell Dist. Width 14.9 % (11.5-14.5)
[2024-12-23 06:09] LABS: Blood Urea Nitrogen 16 mg/dl (9-20); Calcium 8.0 mg/dl (8.4-10.2); Carbon Dioxide 24 mmol/L (22-30); Chloride 108 mmol/L (98-107); Estimated Creatinine Clearance 106 ml/min; Glucose 99 mg/dl (70-99); Potassium 3.4 mmol/L (3.5-5.1); Sodium 134 mmol/L (135-145); eGFR > 60.00
--- NOTE | 2024-12-23 06:17 | W.PN.UPDATE ---
Update Note
Progress Note Update
AM labs critical value: Hgb 6.9/Hct 19.6, ordered 1 unit PRBC's to transfuse today.
AM labs: K+ 3.4, ordered supplemental potassium 40 meq PO x 1.
[2024-12-23] MEDS: KCL 40 MEQ PO (06:29)
[2024-12-23 07:00] VITALS: BP 136/57
[2024-12-23 07:56] LABS: Glucose - Point of Care 107 mg/dl (70-99)
[2024-12-23] MEDS: NOVOLOG FLEXPEN-LOW RESISTANCE SC ×2 (09:01→16:48)
[2024-12-23] MEDS: MYCOSTATIN ORAL SUSPENSION 5 ML PO ×4 (09:01→21:53)
[2024-12-23] MEDS: ZOVIRAX 400 MG PO ×2 (09:02→20:08)
[2024-12-23] MEDS: OCUVITE SOFTGEL 1 CAP PO ×2 (09:02→20:08)
[2024-12-23] MEDS: DECADRON 0.5 MG PO ×3 (09:02→21:54)
[2024-12-23] MEDS: MUCINEX 600 MG PO ×2 (09:03→20:08)
[2024-12-23] MEDS: VITAMIN C 500 MG PO (09:03)
[2024-12-23] MEDS: VITAMIN B-12 1000 MCG PO (09:03)
[2024-12-23] MEDS: TRICOR 145 MG PO (09:03)
[2024-12-23] MEDS: MYCELEX TROCHE 10 MG PO ×4 (09:03→21:53)
[2024-12-23] MEDS: PROTONIX 40 MG PO ×2 (09:03→20:08)
[2024-12-23] MEDS: VFEND 200 MG PO ×2 (09:03→20:08)
[2024-12-23] MEDS: FLOMAX 0.4 MG PO (09:04)
[2024-12-23] MEDS: TOPROL XL 25 MG PO (09:04)
[2024-12-23] MEDS: MIRALAX 17 GRAMS PO (09:05)
[2024-12-23] MEDS: SENOKOT-S PO (09:05)
[2024-12-23] MEDS: THERAGRAN 1 TABLET PO (09:05)
[2024-12-23] MEDS: NSS (PRESERVATIVE FREE) IV ×2 (09:06→20:08)
[2024-12-23] MEDS: PREPARATION H MAX STRENGTH PAIN RELIEF CREAM 1 APPLIC RECTAL ×4 (09:06→21:54)
[2024-12-23] MEDS: MAGIC OR MIRACLE MOUTHWASH 5 ML PO ×4 (09:06→21:54)
--- NOTE | 2024-12-23 10:42 | W.PN.ID1 ---
Date of Service
Date of Service: December 23, 2024
Today's Communication
Continue cefepime. Follow-up for additional fevers. Monitor pending cultures.
Assessment / Plan
# Neutropenic fever
- Patient remains profoundly neutropenic
# Rectal bleeding from hemorrhoids; resolved
# Recent dx of AML on cycle 2 Vidaza, Venetoclax, ppx acyclovir, levofloxacin, voriconazole
# Prolonged neutropenia due to AML
# Oral stomatitis associated with AML
# Pancytopenia, frequent transfusions
Recommendations:
Repeat blood cultures obtained.
Continue cefepime 2 gm IV q.8 hours.
Monitor temperature curve.
Follow for recovery of marrow.
����������������������������������������������������������
Chief Complaint
-: Fever (Febrile neutropenia)
Subjective / Review of Systems
Review of Systems: No Fever, No Chills, Cough and No Sputum Production
Vital Signs / Physical Exam
Vital Signs
Vital Signs
Temp Pulse Resp BP Pulse Ox
98.4 F 68 18 136/57 99
12/23/24 07:00 12/23/24 07:00 12/23/24 07:00 12/23/24 07:00 12/23/24 07:00
Physical Exam
Constitutional: No Acute Distress and Comfortable
Eyes: Sclera Anicteric
Oropharyngeal: Ulcers (tongue and oral mucosa at left angle of mouth)
Cardiovascular: Regular Rate and S1/S2; Negative S3/S4
Pulmonary: Coarse and Non Labored; Negative Wheezes
Gastrointestinal: Soft, Non Tender, Non Distended and Normal Bowel Sounds
Extremities: Edema (BLE); Negative Cyanosis or Erythema
Skin: Negative Rash
Neurological: Awake, Alert and AO x 3
Objective Data
Lab Data
Lab Results
12/23/24 05:37
12/23/24 05:37
PT 17.3 Sec (11.4-14.6) H 12/12/24 09:23
INR 1.38 12/12/24 09:23
APTT 34.7 Sec (23.4-35.0) 12/12/24 09:23
Estimated Creat Clear 106 ml/min 12/23/24 05:37
Total Bilirubin 0.9 mg/dl (0.2-1.3) 12/12/24 09:23
AST 39 U/L (17-59) 12/12/24 09:23
ALT 29 U/L (0-50) 12/12/24 09:23
Alkaline Phosphatase 77 U/L (38-126) 12/12/24 09:23
Most recent labs reviewed.
Micro Results:
12/20/24 08:12 Blood Culture - Preliminary
Blood/Venous No Growth in 72 hours- Final report to follow
12/20/24 23:14 Blood Culture - Preliminary
Blood/Venous No Growth in 48 hours- Final report to follow
12/11/24 11:01 Blood Culture - Final
Blood/Venous No Growth - Final Report
12/11/24 10:12 Blood Culture - Final
Blood/Venous No Growth - Final Report
12/11/24 15:46 Urine Culture - Final
Urine NO GROWTH
12/11/24 12:57 Nasal Screen MRSA (PCR) - Final
Nose MRSA not detected - performed by PCR methodology.
Imaging:
12/16/2024 CXR (portable): no radiographic evidence of acute cardiopulmonary abnormality. Please see full dictation for additional detail.
12/11/24 CXR: No areas of airspace disease. Tiny left pleural effusion.
[2024-12-23 10:58] VITALS: BP 130/59
[2024-12-23 11:18] VITALS: BP 128/56
--- NOTE | 2024-12-23 11:32 | WOUNDNOTE ---
WO RN note: Patient's R sacral/buttocks adhesive skin tear improved. Sacral ulcer moist yellow slough with some pink tissue (stage 3 appearing). Current wound care appropriate. Patient is on a static air overlay, heels off bed with pillow. He has
an air overlay mattress. Patient does not like to be propped on his side 30 degrees. He tolerates about 15 degree turn position. Instructed patient and healing potential is decreased d/t he cannot off load sacrum at the recommended degree turn.
Patient spends most of the time in bed. He said he cannot tolerate sitting in chair d/t his hemorrhoid. He has hemorrhoid cream on order. Patient has chocolate supplement on order. Will follow as needed.
--- NOTE | 2024-12-23 11:53 | CM ---
spoke with
concerns from [facility]
transfusion dependent-transportation
Patient to receive PRBC today, hgb 6.8
Continue cefepime
Venetoclax dc per Dr. Genao to see if counts improve
PLAN: ?[facility]
[2024-12-23 12:00] LABS: Glucose - Point of Care 212 mg/dl (70-99)
[2024-12-23] MEDS: NOVOLOG FLEXPEN-LOW RESISTANCE 2 UNITS SC (12:15)
[2024-12-23 13:36] VITALS: BP 139/62
--- NOTE | 2024-12-23 13:48 | W.PN.HOSP.TC ---
Today's Communication/Plan
-
1 unit PRBC transfusion
Monitor CBC
Monitor temperature curve
Antibiotics per ID
Assessment / Plan
Assessment / Plan
74M AML CAD DMII HTN HLD referred for evaluation severe anemia. Neutropenic, patient developed fever overnight concerning for possible sepsis. Started on empiric abx
#Neutropenic Fever
- Neutropenic precautions
- blood cultures NGTD
- urinalysis not suggestive UTI
- CXR no acute abn's
- continue acyclovir and voriconazole prophylactically
- Patient have recurrence of fever. ID re-evaluated and started on cefepime
#pancytopenia likely 2/2 Hx AML
#Acute Blood Loss Anemia
- transfuse if Plt<10 or if bleeding Plt<50
- follows with [facility]
- Oncology evaluated in light of persistent neutropenia/thrombocytopenia and discussed possibility of need of hospice if not improved.
- Venclexta also discontinued to see if patient have any bone marrow response
- Oncology considering repeat bone marrow biopsy to further gauge response of chemotherapy
- Hemoglobin of 6.8 ordering 1 unit of PRBC. Plt 12k, in light of no bleeding diathesis holding plt transfusion.
#Acute Urinary Retention
- Low discontinued 12/14 passed trial of void
- developed urinary retention, low catheter replaced on 12.21
#Mechanical fall 12/19
- Complaining of right-sided pelvic abdomen pain although on the left
- On exam there is no concern of intraperitoneal bleed. No visible ecchymosis. No concern of fracture.
- will do hip/pelvic xr if have further pain issues.
#Oral Thrush, ulcers
- magic mouthwash
- Nystatin Swish
#Hemorrhoids
- Preparation H ointment QID
#Constipation
- improved with Bowel regimen
#DM-II
- AccuCheck AC & HS
- SSI
- hold empagliflozin
#HLD
#CAD
- continue fenofibrate and rosuvastatin
#Essential HTN
- continue metoprolol
#Sacrum Pressure injury stage 2
- cont local wound care
#Hypokalemia - replace PRN
#Hypomagnesemia - monitr
Code status: full code
DVT prophylaxis: SCDs
Anticipated Discharge: > 48 hours
Subjective/Interval History
-
Date of Service: December 23, 2024
No new complaints overnight
Patient is afebrile
Objective Data
-
Labs:
Laboratory Results
12/23/24
05:37
WBC 0.3 L*
Hgb 6.8 L*
Hct 19.6 L*
Plt Count 13 L* D
Sodium 134 L
Potassium 3.4 L
Chloride 108 H
Carbon Dioxide 24
BUN 16
Creatinine 0.5 L
Glucose 99
Calcium 8.0 L
Vital Signs:
Vital Signs
Temp Pulse Resp BP Pulse Ox
98.4 F 87 18 139/62 100
12/23/24 13:36 12/23/24 13:36 12/23/24 13:36 12/23/24 13:36 12/23/24 13:36
I&O
12/22/24 12/23/24 12/24/24
06:59 06:59 06:59
Intake Total 1518 / 1518 1680 / 1680 250 / 250
Output Total 575 / 575 900 / 900
Balance 943 / 943 780 / 780 250 / 250
Review of Systems
-
Respiratory: Reports No Symptoms
Cardiac: Reports No Symptoms
Abdomen/GI: Reports No Symptoms
Physical Exam
-
General: Negative Appears in Distress
HEENT: Negative Oxygen
GI: Soft, Nontender, Nondistended and Normal Bowel Sounds
Musculoskeletal: Other (No left hip echymosis)
Neuro: Awake, Alert, Oriented and No Motor Deficits
[2024-12-23 15:00] VITALS: BP 146/59
[2024-12-23 16:39] LABS: Glucose - Point of Care 131 mg/dl (70-99)
[2024-12-23] MEDS: CRESTOR 40 MG PO (17:24)
[2024-12-23] MEDS: SENOKOT-S 1 TABLET PO (20:08)
[2024-12-23 21:51] LABS: Glucose - Point of Care 123 mg/dl (70-99)
[2024-12-23 23:00] VITALS: BP 125/62
[2024-12-24] MEDS: MAXIPIME 2000 MG IV ×3 (05:06→21:54)
[2024-12-24] MEDS: STERILE WATER FOR INJECTION 10 ML IV ×3 (05:06→21:55)
[2024-12-24 05:50] LABS: Hematocrit 25.9 % (39.0-52.0); Hemoglobin 9.0 g/dL (13.0-18.0); Mean Corp Hgb Conc. 34.7 g/dL (33.0-37.0); Mean Corpuscular Volume 85.8 fL (80.0-94.0); Platelet Count 9 10^3/uL (130-400); Red Cell Dist. Width 14.5 % (11.5-14.5)
--- NOTE | 2024-12-24 06:00 | W.PN.UPDATE ---
Update Note
Progress Note Update
Plt is 9 this am, one unit of plt ordered.
[2024-12-24 06:02] LABS: Blood Urea Nitrogen 17 mg/dl (9-20); Calcium 8.1 mg/dl (8.4-10.2); Carbon Dioxide 25 mmol/L (22-30); Chloride 106 mmol/L (98-107); Estimated Creatinine Clearance 106 ml/min; Glucose 106 mg/dl (70-99); Potassium 4.0 mmol/L (3.5-5.1); Sodium 133 mmol/L (135-145); eGFR > 60.00
--- NOTE | 2024-12-24 07:35 | W.PN.ONC ---
Today's Communication / Plan
-
Bone marrow biopsy as outpatient
Venetoclax discontinued in hopes of counts improving
Will likely benefit from another BM biopsy in the next week or two, TBD
Continue abx, transfusion support, etc platelet count 9K
OOB/PT for weakness/deconditioning
As previously:
Would avoid suppositories with ANC <500
Transfuse for hgb <7, platelets <10 -- he is not a transplant candidate, and is not at risk for transfusion-associated GVHD, therefore, he does not need special blood products (only leukoreduced, which is standard practice)
Supportive care for stomatitis
Continue venetoclax 100mg/d due to interaction with voriconazole and severe pancytopenia -hypomethalating agent will remain on hold until returns home from rehab
OP follow up with Dr. Genao 12/30/2024
Impression
Impression
AML not in remission -C2 vidaza/venetoclex (started 12/07/24)
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
neutropenic fever -cultures negative to date -IV abx complete 12/14 - Recurrent as of 12/19 at 23:33
stomatitis -improved
hemorrhoid bleeding - resolved
Subjective/Objective
Subjective/Objective
Patient frustrated. He feels as though he is continuing to get weaker.
Vital Signs:
Vital Signs
Temp Pulse Resp BP Pulse Ox
99.1 F 80 20 125/62 97
12/23/24 23:00 12/23/24 23:00 12/23/24 23:00 12/23/24 23:00 12/23/24 23:00
Physical exam unchanged
Lab Results:
Laboratory Data
WBC 0.5 10^3/uL (4.8-10.8) L* 12/24/24 05:24
Hgb 9.0 g/dL (13.0-18.0) L D 12/24/24 05:24
Plt Count 9 10^3/uL (130-400) L* D 12/24/24 05:24
PT 17.3 Sec (11.4-14.6) H 12/12/24 09:23
INR 1.38 12/12/24 09:23
APTT 34.7 Sec (23.4-35.0) 12/12/24 09:23
eGFR > 60.00 12/24/24 05:24
[2024-12-24 07:52] VITALS: BP 141/70
[2024-12-24 07:58] LABS: Glucose - Point of Care 105 mg/dl (70-99)
[2024-12-24] MEDS: NOVOLOG FLEXPEN-LOW RESISTANCE SC ×3 (09:08→17:11)
[2024-12-24] MEDS: MAGIC OR MIRACLE MOUTHWASH 5 ML PO ×4 (09:11→21:48)
[2024-12-24] MEDS: MYCOSTATIN ORAL SUSPENSION 5 ML PO ×4 (09:11→21:51)
[2024-12-24] MEDS: VITAMIN B-12 1000 MCG PO (09:16)
[2024-12-24] MEDS: MYCELEX TROCHE 10 MG PO ×4 (09:17→21:46)
[2024-12-24] MEDS: SENOKOT-S 1 TABLET PO ×2 (09:17→21:45)
[2024-12-24] MEDS: VFEND 200 MG PO ×2 (09:17→21:46)
[2024-12-24] MEDS: MUCINEX 600 MG PO ×2 (09:17→21:44)
[2024-12-24] MEDS: PROTONIX 40 MG PO ×2 (09:17→21:45)
[2024-12-24] MEDS: TOPROL XL 25 MG PO (09:17)
[2024-12-24] MEDS: THERAGRAN 1 TABLET PO (09:17)
[2024-12-24] MEDS: FLOMAX 0.4 MG PO (09:18)
[2024-12-24] MEDS: ZOVIRAX 400 MG PO ×2 (09:18→21:46)
[2024-12-24] MEDS: OCUVITE SOFTGEL 1 CAP PO ×2 (09:18→21:45)
[2024-12-24] MEDS: DECADRON 0.5 MG PO ×3 (09:18→21:47)
[2024-12-24] MEDS: VITAMIN C 500 MG PO (09:18)
[2024-12-24] MEDS: TRICOR 145 MG PO (09:18)
[2024-12-24] MEDS: MIRALAX 17 GRAMS PO (09:21)
[2024-12-24] MEDS: KCL 20 MEQ PO (09:25)
[2024-12-24] MEDS: NSS (PRESERVATIVE FREE) IV ×2 (10:46→21:45)
[2024-12-24] MEDS: PREPARATION H MAX STRENGTH PAIN RELIEF CREAM 1 APPLIC RECTAL ×2 (10:47→12:42)
[2024-12-24 11:56] LABS: Glucose - Point of Care 137 mg/dl (70-99)
--- NOTE | 2024-12-24 12:55 | W.PN.ID1 ---
Date of Service
Date of Service: December 24, 2024
Today's Communication
Continue cefepime for today.
Assessment / Plan
# Neutropenic fever
- Patient remains profoundly neutropenic
# Rectal bleeding from hemorrhoids; resolved
# Recent dx of AML on cycle 2 Vidaza, Venetoclax, ppx acyclovir, levofloxacin, voriconazole
# Prolonged neutropenia due to AML
# Oral stomatitis associated with AML
# Pancytopenia, frequent transfusions
Recommendations:
Repeat blood cultures obtained.
Continue cefepime 2 gm IV q.8 hours (d#4). If patient remains afebrile over the next 24-48 hours, will attempt to transition back to Levaquin.
Monitor temperature curve.
Follow for recovery of marrow.
For platelet transfusion later today.
����������������������������������������������������������
Chief Complaint
-: Fever (Febrile neutropenia)
Subjective / Review of Systems
Patient seen and examined. No fevers, but notes ongoing tongue ulcers.
Review of Systems: No Fever
Vital Signs / Physical Exam
Vital Signs
Vital Signs
Temp Pulse Resp BP Pulse Ox
97.7 F 76 17 141/70 99
12/24/24 07:52 12/24/24 07:52 12/24/24 07:52 12/24/24 07:52 12/24/24 07:52
Physical Exam
Constitutional: No Acute Distress and Comfortable
Eyes: Sclera Anicteric
Oropharyngeal: Ulcers (tongue and oral mucosa at left angle of mouth)
Cardiovascular: Regular Rate and S1/S2; Negative S3/S4
Pulmonary: Coarse and Non Labored; Negative Wheezes
Gastrointestinal: Soft, Non Tender, Non Distended and Normal Bowel Sounds
Extremities: Edema (BLE); Negative Cyanosis or Erythema
Skin: Negative Rash
Neurological: Awake, Alert and AO x 3
Objective Data
Lab Data
Lab Results
12/24/24 05:24
12/24/24 05:24
PT 17.3 Sec (11.4-14.6) H 12/12/24 09:23
INR 1.38 12/12/24 09:23
APTT 34.7 Sec (23.4-35.0) 12/12/24 09:23
Estimated Creat Clear 106 ml/min 12/24/24 05:24
Total Bilirubin 0.9 mg/dl (0.2-1.3) 12/12/24 09:23
AST 39 U/L (17-59) 12/12/24 09:23
ALT 29 U/L (0-50) 12/12/24 09:23
Alkaline Phosphatase 77 U/L (38-126) 12/12/24 09:23
Most recent labs reviewed.
Micro Results:
12/20/24 08:12 Blood Culture - Preliminary
Blood/Venous No Growth in 4 days- Final report to follow
12/20/24 23:14 Blood Culture - Preliminary
Blood/Venous No Growth in 72 hours- Final report to follow
12/11/24 11:01 Blood Culture - Final
Blood/Venous No Growth - Final Report
12/11/24 10:12 Blood Culture - Final
Blood/Venous No Growth - Final Report
12/11/24 15:46 Urine Culture - Final
Urine NO GROWTH
12/11/24 12:57 Nasal Screen MRSA (PCR) - Final
Nose MRSA not detected - performed by PCR methodology.
Imaging:
12/16/2024 CXR (portable): no radiographic evidence of acute cardiopulmonary abnormality. Please see full dictation for additional detail.
12/11/24 CXR: No areas of airspace disease. Tiny left pleural effusion.
--- NOTE | 2024-12-24 13:09 | W.PN.HOSP.TC ---
Today's Communication/Plan
-
f/u CBC
plt 1 u today
hospice if no improvement
Assessment / Plan
Assessment / Plan
74M AML CAD DMII HTN HLD referred for evaluation severe anemia. Neutropenic, patient developed fever overnight concerning for possible sepsis. Started on empiric abx
#Neutropenic Fever
- Neutropenic precautions
- blood cultures NGTD
- urinalysis not suggestive UTI
- CXR no acute abn's
- continue acyclovir and voriconazole prophylactically
- Patient have recurrence of fever. ID re-evaluated and started on cefepime
#pancytopenia likely 2/2 Hx AML
#Acute Blood Loss Anemia
- transfuse if Plt<10 or if bleeding Plt<50
- follows with [facility]
- Oncology evaluated in light of persistent neutropenia/thrombocytopenia and discussed possibility of need of hospice if not improved.
- Venclexta also discontinued to see if patient have any bone marrow response
- Oncology considering repeat bone marrow biopsy to further gauge response of chemotherapy
- Getting daily PLT / PRBC transfusion based on CBC
#Acute Urinary Retention
- Low discontinued 12/14 passed trial of void
- developed urinary retention, low catheter replaced on 12.21
#Mechanical fall 12/19
- Complaining of right-sided pelvic abdomen pain although on the left
- On exam there is no concern of intraperitoneal bleed. No visible ecchymosis. No concern of fracture.
- will do hip/pelvic xr if have further pain issues.
#Oral Thrush, ulcers
- magic mouthwash
- Nystatin Swish
#Hemorrhoids
- Preparation H ointment QID
#Constipation
- improved with Bowel regimen
#DM-II
- AccuCheck AC & HS
- SSI
- hold empagliflozin
#HLD
#CAD
- continue fenofibrate and rosuvastatin
#Essential HTN
- continue metoprolol
#Sacrum Pressure injury stage 2
- cont local wound care
#Hypokalemia - replace PRN
#Hypomagnesemia - monitr
Code status: full code
DVT prophylaxis: SCDs
Anticipated Discharge: > 48 hours
Subjective/Interval History
-
Date of Service: December 24, 2024
no new issues overnight
Objective Data
-
Labs:
Laboratory Results
12/24/24
05:24
WBC 0.5 L*
Hgb 9.0 L D
Hct 25.9 L
Plt Count 9 L* D
Sodium 133 L
Potassium 4.0
Chloride 106
Carbon Dioxide 25
BUN 17
Creatinine 0.4 L
Glucose 106 H
Calcium 8.1 L
Vital Signs:
Vital Signs
Temp Pulse Resp BP Pulse Ox
97.7 F 76 17 141/70 99
12/24/24 07:52 12/24/24 07:52 12/24/24 07:52 12/24/24 07:52 12/24/24 07:52
I&O
12/23/24 12/24/24 12/25/24
06:59 06:59 06:59
Intake Total 1680 / 1680 1690 / 1690
Output Total 900 / 900 1800 / 1800
Balance 780 / 780 -110 / -110
Review of Systems
-
Respiratory: Reports No Symptoms
Cardiac: Reports No Symptoms
Abdomen/GI: Reports No Symptoms
Physical Exam
-
General: Negative Appears in Distress
HEENT: Negative Oxygen
GI: Soft, Nontender, Nondistended and Normal Bowel Sounds
Musculoskeletal: Other (No left hip echymosis)
Neuro: Awake, Alert, Oriented and No Motor Deficits
[2024-12-24 14:37] VITALS: BP 140/64
[2024-12-24 14:59] VITALS: BP 140/64
[2024-12-24 15:03] VITALS: BP 131/61
[2024-12-24 16:00] VITALS: BP 136/65
[2024-12-24 16:34] LABS: Glucose - Point of Care 116 mg/dl (70-99)
[2024-12-24] MEDS: CRESTOR 40 MG PO (17:06)
[2024-12-24] MEDS: PREPARATION H MAX STRENGTH PAIN RELIEF CREAM RECTAL ×2 (17:12→21:57)
[2024-12-24 21:53] LABS: Glucose - Point of Care 139 mg/dl (70-99)
[2024-12-24 23:04] VITALS: BP 103/70
[2024-12-25 05:05] LABS: Hematocrit 22.5 % (39.0-52.0); Hemoglobin 7.9 g/dL (13.0-18.0); Mean Corp Hgb Conc. 35.1 g/dL (33.0-37.0); Mean Corpuscular Volume 85.6 fL (80.0-94.0); Platelet Count 14 10^3/uL (130-400); Red Cell Dist. Width 14.3 % (11.5-14.5)
[2024-12-25 05:21] LABS: Blood Urea Nitrogen 15 mg/dl (9-20); Calcium 7.7 mg/dl (8.4-10.2); Carbon Dioxide 26 mmol/L (22-30); Chloride 104 mmol/L (98-107); Estimated Creatinine Clearance 106 ml/min; Glucose 106 mg/dl (70-99); Potassium 3.9 mmol/L (3.5-5.1); Sodium 131 mmol/L (135-145); eGFR > 60.00
[2024-12-25] MEDS: MAXIPIME 2000 MG IV (05:53)
[2024-12-25] MEDS: STERILE WATER FOR INJECTION 10 ML IV (05:53)
[2024-12-25 07:34] VITALS: BP 131/77
[2024-12-25 07:41] LABS: Glucose - Point of Care 108 mg/dl (70-99)
[2024-12-25] MEDS: NOVOLOG FLEXPEN-LOW RESISTANCE SC ×3 (09:12→16:38)
[2024-12-25] MEDS: MYCELEX TROCHE PO (09:13)
[2024-12-25] MEDS: MAGIC OR MIRACLE MOUTHWASH PO ×4 (09:13→21:52)
[2024-12-25] MEDS: DECADRON 0.5 MG PO ×3 (09:14→21:52)
[2024-12-25] MEDS: OCUVITE SOFTGEL 1 CAP PO ×2 (09:15→20:51)
[2024-12-25] MEDS: PROTONIX 40 MG PO ×2 (09:15→20:48)
[2024-12-25] MEDS: VFEND 200 MG PO ×2 (09:15→20:52)
[2024-12-25] MEDS: TRICOR 145 MG PO (09:15)
[2024-12-25] MEDS: MUCINEX 600 MG PO ×2 (09:15→20:48)
[2024-12-25] MEDS: SENOKOT-S 1 TABLET PO ×2 (09:16→20:52)
[2024-12-25] MEDS: VITAMIN B-12 1000 MCG PO (09:16)
[2024-12-25] MEDS: ZOVIRAX 400 MG PO ×2 (09:16→20:52)
[2024-12-25] MEDS: VITAMIN C 500 MG PO (09:16)
[2024-12-25] MEDS: KCL 20 MEQ PO (09:16)
[2024-12-25] MEDS: TOPROL XL 25 MG PO (09:16)
[2024-12-25] MEDS: FLOMAX 0.4 MG PO (09:16)
[2024-12-25] MEDS: PREPARATION H MAX STRENGTH PAIN RELIEF CREAM RECTAL ×3 (09:17→21:51)
[2024-12-25] MEDS: MYCOSTATIN ORAL SUSPENSION 5 ML PO ×4 (09:17→21:50)
[2024-12-25] MEDS: MIRALAX PO (09:17)
[2024-12-25] MEDS: THERAGRAN 1 TABLET PO (09:17)
[2024-12-25] MEDS: NSS (PRESERVATIVE FREE) IV ×2 (09:18→20:47)
[2024-12-25 11:03] VITALS: BP 118/56; PULSE 91; O2SAT 98
[2024-12-25 11:04] VITALS: BP 118/56; PULSE 90; O2SAT 98
[2024-12-25 11:20] LABS: Glucose - Point of Care 132 mg/dl (70-99)
--- NOTE | 2024-12-25 13:33 | CM ---
Received notification that patient's daughter, Dana called and requested return call. Attempted to speak with patient to request permission from him to speak to daughter as she is not on the chart however he was asleep. Attempted to speak with
his however she was not in room and not answering calls. Placed a call to Dana Cisneros, patient's daughter and made her aware that as she is not on the chart, no information about patient could be provided. She expressed understanding. She
had questions regarding options of care at d/c. Explanation provided as to differences in SNF, and VN. (Indication on behalf of all medical staff is for rehab).
Spoke with attending who stated that he had a lengthy conversation with patient and advised that safest option would be for therapy prior to returning home. He is refusing. Patient's does not want to take patient home today as she would like VN
set up and DME. Attending will consult CM for VN. Will confirm choice and make referral.
Plan: Case management will continue to follow and assist with discharge planning. Patient and family going against medical advisement of SNF.
[2024-12-25] MEDS: LEVAQUIN 500 MG PO (13:58)
[2024-12-25] MEDS: MYCELEX TROCHE 10 MG PO ×3 (13:58→21:53)
[2024-12-25] MEDS: STERILE WATER FOR INJECTION IV ×2 (14:09→21:55)
--- NOTE | 2024-12-25 14:09 | W.PN.ONC ---
Today's Communication / Plan
-
cont supportive care
follow CBC
patient considering hospice
Impression
Impression
AML not in remission -C2 vidaza/venetoclex (started 12/07/24)
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
neutropenic fever -cultures negative to date -IV abx complete 12/14 - Recurrent as of 12/19 at 23:33
stomatitis -improved
hemorrhoid bleeding - resolved
Plan
Plan
Discussed ongoing issues with patient/
Unclear if ongoing cytopenias are related to leukemia or venetocloax
Normally would consider updating bm biopsy at this time -- if BM biopsy showed ongoing leukemia despite two cycle of aza/carito, would consider hospice, which we discussed. If BM biopsy showed remission, would stop carito to allow count recovery
Therefore, will stop venetoclax and observe counts
Will likely benefit from another BM biopsy in the next week or two, TBD
Continue abx, transfusion support, etc
OOB/PT for weakness/deconditioning
As previously:
Would avoid suppositories with ANC <500
Transfuse for hgb <7, platelets <20 -- he is not a transplant candidate, and is not at risk for transfusion-associated GVHD, therefore, he does not need special blood products (only leukoreduced, which is standard practice)
Supportive care for stomatitis
Has OP follow up with Dr. Genao 12/30/2024
Subjective/Objective
Subjective/Objective
no fevers today - temp to 100.6 last night - no new complaints
Vital Signs:
Vital Signs
Temp Pulse Resp BP Pulse Ox
98.7 F 83 17 131/77 96
12/25/24 07:34 12/25/24 07:34 12/25/24 07:34 12/25/24 07:34 12/25/24 07:34
Lab Results:
Laboratory Data
WBC 0.3 10^3/uL (4.8-10.8) L* 12/25/24 04:35
Hgb 7.9 g/dL (13.0-18.0) L 12/25/24 04:35
Plt Count 14 10^3/uL (130-400) L* D 12/25/24 04:35
PT 17.3 Sec (11.4-14.6) H 12/12/24 09:23
INR 1.38 12/12/24 09:23
APTT 34.7 Sec (23.4-35.0) 12/12/24 09:23
eGFR > 60.00 12/25/24 04:35
--- NOTE | 2024-12-25 14:15 | W.PN.HOSP.TC ---
Today's Communication/Plan
-
d/c planning for home
f/u cbc
Assessment / Plan
Assessment / Plan
74M AML CAD DMII HTN HLD referred for evaluation severe anemia. Neutropenic, patient developed fever overnight concerning for possible sepsis. Started on empiric abx
#Neutropenic Fever
- Neutropenic precautions
- blood cultures NGTD
- urinalysis not suggestive UTI
- CXR no acute abn's
- continue acyclovir and voriconazole prophylactically
- Patient have recurrence of fever. ID re-evaluated and started on cefepime
#pancytopenia likely 2/2 Hx AML
#Acute Blood Loss Anemia
- transfuse if Plt<10 or if bleeding Plt<50
- follows with [facility]
- Oncology evaluated in light of persistent neutropenia/thrombocytopenia and discussed possibility of need of hospice if not improved.
- Venclexta also discontinued to see if patient have any bone marrow response
- Oncology considering repeat bone marrow biopsy to further gauge response of chemotherapy
- Getting daily PLT / PRBC transfusion based on CBC
#Acute Urinary Retention
- Low discontinued 12/14 passed trial of void
- developed urinary retention, low catheter replaced on 12.21
#Mechanical fall 12/19
- Complaining of right-sided pelvic abdomen pain although on the left
- On exam there is no concern of intraperitoneal bleed. No visible ecchymosis. No concern of fracture.
- will do hip/pelvic xr if have further pain issues.
#Oral Thrush, ulcers
- magic mouthwash
- Nystatin Swish
#Hemorrhoids
- Preparation H ointment QID
#Constipation
- improved with Bowel regimen
#DM-II
- AccuCheck AC & HS
- SSI
- hold empagliflozin
#HLD
#CAD
- continue fenofibrate and rosuvastatin
#Essential HTN
- continue metoprolol
#Sacrum Pressure injury stage 2
- cont local wound care
#Hypokalemia - replace PRN
#Hypomagnesemia - monitr
Code status: full code
DVT prophylaxis: SCDs
Patient is in need of a semi-electric hospital bed with foam mattress due to the need to elevate head of bed above 30 degrees to prevent aspiration
and to facilitate frequent repositioning to prevent bed ulcers and pressure points.
12/25. Patient spouse at bedside. Patient requesting to be discharged home. Patient not requiring a transfusion today and blood counts are acceptable. Discussed with case management for arrangement for home discharge. Patient will require to
transition to home hospice on outpatient basis if bone marrow function does not return or any other complication of malignancy arises.
Anticipated Discharge: Within 24 hours
Subjective/Interval History
-
Date of Service: December 25, 2024
Afebrile overnight
No other issues reported
Objective Data
-
Labs:
Laboratory Results
12/25/24
04:35
WBC 0.3 L*
Hgb 7.9 L
Hct 22.5 L
Plt Count 14 L* D
Sodium 131 L
Potassium 3.9
Chloride 104
Carbon Dioxide 26
BUN 15
Creatinine 0.4 L
Glucose 106 H
Calcium 7.7 L
Vital Signs:
Vital Signs
Temp Pulse Resp BP Pulse Ox
98.7 F 83 17 131/77 96
12/25/24 07:34 12/25/24 07:34 12/25/24 07:34 12/25/24 07:34 12/25/24 07:34
I&O
12/24/24 12/25/24 12/26/24
06:59 06:59 06:59
Intake Total 1690 / 1690 1099 / 1099
Output Total 1800 / 1800 1400 / 1400
Balance -110 / -110 -301 / -301
Review of Systems
-
Respiratory: Reports No Symptoms
Cardiac: Reports No Symptoms
Abdomen/GI: Reports No Symptoms
Physical Exam
-
General: Negative Appears in Distress
HEENT: Negative Oxygen
Musculoskeletal: Other (No left hip echymosis)
Neuro: Awake, Alert, Oriented and No Motor Deficits
[2024-12-25 15:18] VITALS: BP 98/48
--- NOTE | 2024-12-25 15:48 | W.PN.ID1 ---
Date of Service
Date of Service: December 25, 2024
Today's Communication
Continue cefepime while inpatient. See below�
Assessment / Plan
# Neutropenic fever
- Patient remains profoundly neutropenic
# Rectal bleeding from hemorrhoids; resolved
# Recent dx of AML on cycle 2 Vidaza, Venetoclax, ppx acyclovir, levofloxacin, voriconazole
# Prolonged neutropenia due to AML
# Oral stomatitis associated with AML
# Pancytopenia, frequent transfusions
Recommendations:
Repeat blood cultures no growth to date.
Continue cefepime 2 gm IV q.8 hours (d#5). Would transition back to Levaquin at time of discharge. Patient will be following closely with heme-onc, and potentially will be undergoing outpatient bone marrow biopsy.
Monitor temperature curve.
Follow for recovery of marrow.
Ongoing discussions of goals of care noted.
����������������������������������������������������������
Chief Complaint
-: Fever (Febrile neutropenia)
Subjective / Review of Systems
Patient seen and examined. Temp noted yesterday.
Vital Signs / Physical Exam
Vital Signs
Vital Signs
Temp Pulse Resp BP Pulse Ox
99.5 F 89 17 98/48 96
12/25/24 15:18 12/25/24 15:18 12/25/24 15:18 12/25/24 15:18 12/25/24 15:18
Physical Exam
Constitutional: No Acute Distress and Comfortable
Eyes: Sclera Anicteric
Oropharyngeal: Ulcers (tongue and oral mucosa at left angle of mouth)
Cardiovascular: Regular Rate and S1/S2; Negative S3/S4
Pulmonary: Non Labored; Negative Wheezes
Gastrointestinal: Soft and Normal Bowel Sounds
Extremities: Edema (BLE); Negative Cyanosis or Erythema
Skin: Negative Rash
Psychological: Calm
Objective Data
Lab Data
Lab Results
12/25/24 04:35
12/25/24 04:35
PT 17.3 Sec (11.4-14.6) H 12/12/24 09:23
INR 1.38 12/12/24 09:23
APTT 34.7 Sec (23.4-35.0) 12/12/24 09:23
Estimated Creat Clear 106 ml/min 12/25/24 04:35
Total Bilirubin 0.9 mg/dl (0.2-1.3) 12/12/24 09:23
AST 39 U/L (17-59) 12/12/24 09:23
ALT 29 U/L (0-50) 12/12/24 09:23
Alkaline Phosphatase 77 U/L (38-126) 12/12/24 09:23
Most recent labs reviewed.
Micro Results:
12/20/24 08:12 Blood Culture - Final
Blood/Venous No Growth - Final Report
12/20/24 23:14 Blood Culture - Preliminary
Blood/Venous No Growth in 4 days- Final report to follow
12/11/24 11:01 Blood Culture - Final
Blood/Venous No Growth - Final Report
12/11/24 10:12 Blood Culture - Final
Blood/Venous No Growth - Final Report
12/11/24 15:46 Urine Culture - Final
Urine NO GROWTH
12/11/24 12:57 Nasal Screen MRSA (PCR) - Final
Nose MRSA not detected - performed by PCR methodology.
Imaging:
12/16/2024 CXR (portable): no radiographic evidence of acute cardiopulmonary abnormality. Please see full dictation for additional detail.
12/11/24 CXR: No areas of airspace disease. Tiny left pleural effusion.
[2024-12-25 16:17] LABS: Glucose - Point of Care 136 mg/dl (70-99)
[2024-12-25] MEDS: PREPARATION H MAX STRENGTH PAIN RELIEF CREAM 1 APPLIC RECTAL (17:33)
[2024-12-25] MEDS: CRESTOR 40 MG PO (17:34)
[2024-12-25] MEDS: MELATONIN 3 MG PO (20:53)
[2024-12-25 21:18] LABS: Glucose - Point of Care 145 mg/dl (70-99)
[2024-12-25] MEDS: ULTRAM 50 MG PO (22:01)
[2024-12-25 23:00] VITALS: BP 101/58
[2024-12-26] VITALS (7 sets, daily range): BP systolic 103–137; BP diastolic 55–84; BMI 29.6
[2024-12-26] MEDS: STERILE WATER FOR INJECTION IV ×3 (05:41→21:35)
[2024-12-26 07:37] LABS: Glucose - Point of Care 116 mg/dl (70-99)
[2024-12-26] MEDS: MAGIC OR MIRACLE MOUTHWASH PO ×4 (07:41→21:33)
[2024-12-26] MEDS: NOVOLOG FLEXPEN-LOW RESISTANCE SC ×3 (07:43→16:56)
[2024-12-26 08:36] LABS: Hematocrit 21.8 % (39.0-52.0); Hemoglobin 7.6 g/dL (13.0-18.0); Mean Corp Hgb Conc. 34.9 g/dL (33.0-37.0); Mean Corpuscular Volume 85.8 fL (80.0-94.0); Platelet Count 8 10^3/uL (130-400); Red Cell Dist. Width 13.9 % (11.5-14.5)
[2024-12-26 09:03] LABS: Blood Urea Nitrogen 15 mg/dl (9-20); Calcium 7.8 mg/dl (8.4-10.2); Carbon Dioxide 27 mmol/L (22-30); Chloride 103 mmol/L (98-107); Estimated Creatinine Clearance 106 ml/min; Glucose 100 mg/dl (70-99); Potassium 3.9 mmol/L (3.5-5.1); Sodium 131 mmol/L (135-145); eGFR > 60.00
[2024-12-26] MEDS: FLOMAX 0.4 MG PO (09:08)
[2024-12-26] MEDS: VFEND 200 MG PO ×2 (09:08→21:30)
[2024-12-26] MEDS: VITAMIN C 500 MG PO (09:08)
[2024-12-26] MEDS: KCL 20 MEQ PO (09:08)
[2024-12-26] MEDS: TOPROL XL 25 MG PO (09:08)
[2024-12-26] MEDS: THERAGRAN 1 TABLET PO (09:08)
[2024-12-26] MEDS: TRICOR 145 MG PO (09:09)
[2024-12-26] MEDS: PROTONIX 40 MG PO ×2 (09:09→21:32)
[2024-12-26] MEDS: OCUVITE SOFTGEL 1 CAP PO ×2 (09:09→21:31)
[2024-12-26] MEDS: ZOVIRAX 400 MG PO ×2 (09:09→21:30)
[2024-12-26] MEDS: MUCINEX 600 MG PO ×2 (09:09→21:29)
[2024-12-26] MEDS: LEVAQUIN 500 MG PO (09:09)
[2024-12-26] MEDS: SENOKOT-S 1 TABLET PO (09:10)
[2024-12-26] MEDS: VITAMIN B-12 1000 MCG PO (09:10)
[2024-12-26] MEDS: MYCOSTATIN ORAL SUSPENSION 5 ML PO ×4 (09:10→21:34)
[2024-12-26] MEDS: MIRALAX PO (09:11)
[2024-12-26] MEDS: DECADRON 0.5 MG PO ×3 (09:11→21:32)
[2024-12-26] MEDS: MYCELEX TROCHE 10 MG PO ×4 (09:11→21:33)
[2024-12-26] MEDS: PREPARATION H MAX STRENGTH PAIN RELIEF CREAM RECTAL ×4 (09:12→21:35)
[2024-12-26] MEDS: NSS (PRESERVATIVE FREE) IV ×2 (09:13→21:31)
--- NOTE | 2024-12-26 11:32 | CM ---
CM consult complete-hospice consult
tt Katelyn Ortiz
[facility]
PLAN: Hospice to eval
[2024-12-26 11:47] LABS: Glucose - Point of Care 130 mg/dl (70-99)
--- NOTE | 2024-12-26 12:56 | W.PN.HOSP.TC ---
Today's Communication/Plan
-
Patient requested home hospice
Consult for hospice placed
Assessment / Plan
Assessment / Plan
74M AML CAD DMII HTN HLD referred for evaluation severe anemia. Neutropenic, patient developed fever overnight concerning for possible sepsis. Started on empiric abx
#Neutropenic Fever
- Neutropenic precautions
- blood cultures NGTD
- urinalysis not suggestive UTI
- CXR no acute abn's
- continue acyclovir and voriconazole prophylactically
- Patient have recurrence of fever. ID re-evaluated and started on cefepime
#pancytopenia likely 2/2 Hx AML
#Acute Blood Loss Anemia
- transfuse if Plt<10 or if bleeding Plt<50
- follows with [facility]
- Oncology evaluated in light of persistent neutropenia/thrombocytopenia and discussed possibility of need of hospice if not improved.
- Venclexta also discontinued to see if patient have any bone marrow response
- Oncology considering repeat bone marrow biopsy to further gauge response of chemotherapy
- Getting daily PLT / PRBC transfusion based on CBC
#Acute Urinary Retention
- Low discontinued 12/14 passed trial of void
- developed urinary retention, low catheter replaced on 12.21
#Mechanical fall 12/19
- Complaining of right-sided pelvic abdomen pain although on the left
- On exam there is no concern of intraperitoneal bleed. No visible ecchymosis. No concern of fracture.
- will do hip/pelvic xr if have further pain issues.
#Oral Thrush, ulcers
- magic mouthwash
- Nystatin Swish
#Hemorrhoids
- Preparation H ointment QID
#Constipation
- improved with Bowel regimen
#DM-II
- AccuCheck AC & HS
- SSI
- hold empagliflozin
#HLD
#CAD
- continue fenofibrate and rosuvastatin
#Essential HTN
- continue metoprolol
#Sacrum Pressure injury stage 2
- cont local wound care
#Hypokalemia - replace PRN
#Hypomagnesemia - monitr
Code status: full code
DVT prophylaxis: SCDs
Patient is in need of a semi-electric hospital bed with foam mattress due to the need to elevate head of bed above 30 degrees to prevent aspiration
and to facilitate frequent repositioning to prevent bed ulcers and pressure points.
12/25. Patient spouse at bedside. Patient requesting to be discharged home. Patient not requiring a transfusion today and blood counts are acceptable. Discussed with case management for arrangement for home discharge. Patient will require to
transition to home hospice on outpatient basis if bone marrow function does not return or any other complication of malignancy arises.

Anticipated Discharge: Within 24 hours
Subjective/Interval History
-
Date of Service: December 26, 2024
No new issues reported overnight
Objective Data
-
Labs:
Laboratory Results
12/26/24
08:07
WBC 0.3 L*
Hgb 7.6 L
Hct 21.8 L
Plt Count 8 L* D
Sodium 131 L
Potassium 3.9
Chloride 103
Carbon Dioxide 27
BUN 15
Creatinine 0.5 L
Glucose 100 H
Calcium 7.8 L
Vital Signs:
Vital Signs
Temp Pulse Resp BP Pulse Ox
98.0 F 85 15 118/84 97
12/26/24 07:49 12/26/24 07:49 12/26/24 07:49 12/26/24 07:49 12/26/24 07:49
I&O
12/25/24 12/26/24 12/27/24
06:59 06:59 06:59
Intake Total 1099 / 1099 1260 / 1260
Output Total 1400 / 1400 1250 / 1250
Balance -301 / -301
Review of Systems
-
Respiratory: Reports No Symptoms
Cardiac: Reports No Symptoms
Abdomen/GI: Reports No Symptoms
Physical Exam
-
General: Negative Appears in Distress
HEENT: Negative Oxygen
Musculoskeletal: Other (No left hip echymosis)
Neuro: Awake, Alert, Oriented and No Motor Deficits
--- NOTE | 2024-12-26 13:46 | W.PN.ONC2 ---
Today's Communication / Plan
-
- meeting with hospice.
- continue transfusion support for now.
- continue to hold venetoclax
Impression
Impression
AML not in remission -C2 vidaza/venetoclex (started 12/07/24)
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
neutropenic fever -cultures negative to date -IV abx complete 12/14 - Recurrent as of 12/19 at 23:33
stomatitis -improved
hemorrhoid bleeding - resolved
Plan
Plan
Discussed ongoing issues with patient/
Unclear if ongoing cytopenias are related to leukemia or venetoclax. venetoclax now being held since 12/22.
Would avoid suppositories with ANC <500
Transfuse for hgb <7, platelets <20 -- he is not a transplant candidate, and is not at risk for transfusion-associated GVHD, therefore, he does not need special blood products (only leukoreduced, which is standard practice)
Supportive care for stomatitis
GOC discussed with pt today. Regardless of whether ongoing cytopenias, symptoms are related to disease or tx, he is not interested in restarting tx and would like to go home and expressed interest in hospice which I feel is appropriate. He is having
meeting with hospice today.
Subjective/Objective
Chief Complaint
pancytopenia, AML
Subjective
pt fatigued today. T max 100.6 over past 24 hours. He continues to have mouth sores, cough.
Vital Signs:
Vital Signs
Temp Pulse Resp BP Pulse Ox
99.7 F 100 16 125/65 97
12/26/24 13:43 12/26/24 13:43 12/26/24 13:43 12/26/24 13:43 12/26/24 13:43
Lab Results:
Laboratory Data
WBC 0.3 10^3/uL (4.8-10.8) L* 12/26/24 08:07
Hgb 7.6 g/dL (13.0-18.0) L 12/26/24 08:07
Plt Count 8 10^3/uL (130-400) L* D 12/26/24 08:07
PT 17.3 Sec (11.4-14.6) H 12/12/24 09:23
INR 1.38 12/12/24 09:23
APTT 34.7 Sec (23.4-35.0) 12/12/24 09:23
eGFR > 60.00 12/26/24 08:07
Physical Exam
HEENT: Other (frail appearance ); No Jaundice
Cardiology: Normal Sinus Rhythm
Pulmonary: Clear
GI: Soft and Normal Bowel Sounds
Extremities: No Edema
Neuro: Non Focal
Review of Systems
Review of Systems
Constitutional: Reports Fatigue; Denies Fever
Head: Reports Sore Throat
Respiratory: Reports Cough
Cardiovascular: Denies Chest Pain
Gastrointestinal: Denies Nausea/Vomiting or Diarrhea
Neurological: Denies Headache
Hem/Lymphatic: Reports Easy Bruising
--- NOTE | 2024-12-26 14:23 | HOSPNOTE ---
Hospice referral received. Spoke to daughter Kourtney and then Nickie. Reviewed hospice and the philosophy. They are in agreement. Family does need to make room for equipment. Plan is for equipment delivery Saturday. Requested CM to schedule
transport then for 12 noon. Hospice will meet them in the home Saturday. CM, Primary RN, and Attending updated and in agreement with plan above.
--- NOTE | 2024-12-26 16:13 | CM ---
Met with patient and
Home with hospice on Saturday - per Katelyn Ortiz 12 noon transport to be set
manager unit aware
IMM explained & signed
OO[facility] DNR on chart for signature - hospitalist aware
PLAN: Home on Thursday 12/28 with Hospice
transport forms on chart, 12 noon transport to be set
[2024-12-26 16:44] LABS: Glucose - Point of Care 113 mg/dl (70-99)
[2024-12-26] MEDS: CRESTOR 40 MG PO (17:54)
[2024-12-26 18:13] LABS: Glucose - Point of Care 119 mg/dl (70-99)
--- NOTE | 2024-12-26 18:48 | FALL ---
Description of Fall:
This RN assisted patient to the restroom for a BM at patient's request with a walker. The patient ambulated to the restroom with moderate assistance and sat on a commode seat placed over the toilet due to the low height of the toilet seat. While
patient was still holding walker and having a bowel movement, this RN stepped backward a few steps to reach wipes. At that time the patient slowly collapsed forward tipping the walker into the shower and settling on his knees.
RN supported him from behind by the shoulders and attempted to detain his fall, slowly lowering him to the floor and pulling the call cord for assistance. With the assistance of two PCT's and another RN the patient was raised to the toilet and
subsequently to a recliner chair at the entrance to the bathroom. Patient assessed and vital signs obtained. patient noted to have T101.1F, otherwise VS WNL.
Patient cares and room cleaning performed. Mild bleeding noted from hemorrhoids and minute skin tear on right arm. Patient denies pain except from anal and sacral area. Sacral dressing changed. Patient did not strike head or face. Patient endorsed
some dizziness at time of fall. MD notified. present in patient room.
Injuries Noted:
Action Taken:
Name of Provider Notified: Mando Juarez M.D.
[2024-12-26] MEDS: TYLENOL 650 MG PO (19:16)
[2024-12-26 21:22] LABS: Glucose - Point of Care 121 mg/dl (70-99)
[2024-12-26] MEDS: SENOKOT-S PO (21:30)
[2024-12-26] MEDS: MELATONIN 3 MG PO (21:33)
[2024-12-26] MEDS: ULTRAM 50 MG PO (21:34)
[2024-12-27] MEDS: STERILE WATER FOR INJECTION IV ×3 (05:26→21:50)
[2024-12-27 07:20] VITALS: BP 111/67
[2024-12-27 07:51] LABS: Glucose - Point of Care 99 mg/dl (70-99)
[2024-12-27] MEDS: MAGIC OR MIRACLE MOUTHWASH 5 ML PO ×2 (08:21→21:50)
[2024-12-27] MEDS: DECADRON 0.5 MG PO ×2 (08:23→21:48)
[2024-12-27] MEDS: NOVOLOG FLEXPEN-LOW RESISTANCE SC ×3 (08:23→17:11)
[2024-12-27] MEDS: MYCOSTATIN ORAL SUSPENSION 5 ML PO ×3 (08:24→21:47)
[2024-12-27] MEDS: THERAGRAN 1 TABLET PO (08:25)
[2024-12-27] MEDS: FLOMAX 0.4 MG PO (08:25)
[2024-12-27] MEDS: VITAMIN C 500 MG PO (08:25)
[2024-12-27] MEDS: KCL 20 MEQ PO (08:25)
[2024-12-27] MEDS: VITAMIN B-12 1000 MCG PO (08:25)
[2024-12-27] MEDS: NSS (PRESERVATIVE FREE) IV ×2 (08:26→21:49)
[2024-12-27] MEDS: SENOKOT-S PO (08:26)
[2024-12-27] MEDS: PROTONIX 40 MG PO ×2 (08:26→21:47)
[2024-12-27] MEDS: MIRALAX PO (08:26)
[2024-12-27] MEDS: MYCELEX TROCHE 10 MG PO ×3 (08:27→21:49)
[2024-12-27] MEDS: OCUVITE SOFTGEL 1 CAP PO ×2 (08:27→21:47)
[2024-12-27] MEDS: TRICOR 145 MG PO (08:27)
[2024-12-27] MEDS: LEVAQUIN 500 MG PO (08:27)
[2024-12-27] MEDS: MUCINEX 600 MG PO ×2 (08:27→21:47)
[2024-12-27] MEDS: ZOVIRAX 400 MG PO ×2 (08:28→21:53)
[2024-12-27] MEDS: TOPROL XL 25 MG PO (08:28)
[2024-12-27] MEDS: VFEND 200 MG PO ×2 (08:28→21:49)
[2024-12-27] MEDS: PREPARATION H MAX STRENGTH PAIN RELIEF CREAM RECTAL ×4 (08:28→23:10)
[2024-12-27] MEDS: MAGIC OR MIRACLE MOUTHWASH PO ×2 (10:40→18:04)
--- NOTE | 2024-12-27 10:57 | W.PN.ONC2 ---
Today's Communication / Plan
-
- comfort care with plan for home hospice.
Impression
Impression
AML not in remission -C2 vidaza/venetoclex (started 12/07/24)
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
neutropenic fever -cultures negative to date -IV abx complete 12/14 - Recurrent as of 12/19 at 23:33
stomatitis -improved
hemorrhoid bleeding - resolved
Plan
Plan
Unclear if ongoing cytopenias are related to leukemia or venetoclax. venetoclax now being held since 12/22.
GOC discussed with pt. Regardless of whether ongoing cytopenias, symptoms are related to disease or tx, he was not interested in restarting tx and expressed interest in hospice which I felt was appropriate. Met with hospice 12/26, arrangements are
being made to go home on hospice likely 12/28.
ok to stop daily blood draws, meds for comfort only.
Subjective/Objective
Chief Complaint
AML, febrile neutropenia
Subjective
pt has no new complaints, notes being in a little better spirits. Family and pt spoke with hospice yesterday and planning for d/c on home hospice likely tomorrow. no CBC drawn today.
Vital Signs:
Vital Signs
Temp Pulse Resp BP Pulse Ox
97.9 F 91 16 111/67 99
12/27/24 07:20 12/27/24 07:20 12/27/24 07:20 12/27/24 07:20 12/27/24 07:20
Lab Results:
Laboratory Data
WBC 0.3 10^3/uL (4.8-10.8) L* 12/26/24 08:07
Hgb 7.6 g/dL (13.0-18.0) L 12/26/24 08:07
Plt Count 8 10^3/uL (130-400) L* D 12/26/24 08:07
PT 17.3 Sec (11.4-14.6) H 12/12/24 09:23
INR 1.38 12/12/24 09:23
APTT 34.7 Sec (23.4-35.0) 12/12/24 09:23
eGFR > 60.00 12/26/24 08:07
Physical Exam
HEENT: Other (chronically ill appearing ); No Jaundice
Pulmonary: Other (no respiratory distress, no conversational dyspnea )
Extremities: No Edema
Neuro: Non Focal
Review of Systems
Review of Systems
Constitutional: Reports Fatigue; Denies Fever
Head: Reports Other (tongue ulcers, sore)
Respiratory: Denies Dyspnea or Cough
Cardiovascular: Denies Chest Pain
Gastrointestinal: Denies Nausea/Vomiting
Neurological: Denies Headache
Hem/Lymphatic: Reports Easy Bruising
[2024-12-27 11:53] LABS: Glucose - Point of Care 133 mg/dl (70-99)
--- NOTE | 2024-12-27 13:32 | W.PN.HOSP.TC ---
Today's Communication/Plan
-
d/c planning for home hospice
Assessment / Plan
Assessment / Plan
12/27
Patient had assisted fall yesterday and no reported injury
Denies having any issues currently
Currently undergoing discharge planning for home hospice tomorrow morning.

74M AML CAD DMII HTN HLD referred for evaluation severe anemia. Neutropenic, patient developed fever overnight concerning for possible sepsis. Started on empiric abx
#Neutropenic Fever
- Neutropenic precautions
- blood cultures NGTD
- urinalysis not suggestive UTI
- CXR no acute abn's
- continue acyclovir and voriconazole prophylactically
- Patient have recurrence of fever. ID re-evaluated and started on cefepime
#pancytopenia likely 2/2 Hx AML
#Acute Blood Loss Anemia
- transfuse if Plt<10 or if bleeding Plt<50
- follows with [facility]
- Oncology evaluated in light of persistent neutropenia/thrombocytopenia and discussed possibility of need of hospice if not improved.
- Venclexta also discontinued to see if patient have any bone marrow response
- Oncology considering repeat bone marrow biopsy to further gauge response of chemotherapy
- Getting daily PLT / PRBC transfusion based on CBC
#Acute Urinary Retention
- Low discontinued 12/14 passed trial of void
- developed urinary retention, low catheter replaced on 12.21
#Mechanical fall 12/19
- Complaining of right-sided pelvic abdomen pain although on the left
- On exam there is no concern of intraperitoneal bleed. No visible ecchymosis. No concern of fracture.
- will do hip/pelvic xr if have further pain issues.
#Oral Thrush, ulcers
- magic mouthwash
- Nystatin Swish
#Hemorrhoids
- Preparation H ointment QID
#Constipation
- improved with Bowel regimen
#DM-II
- AccuCheck AC & HS
- SSI
- hold empagliflozin
#HLD
#CAD
- continue fenofibrate and rosuvastatin
#Essential HTN
- continue metoprolol
#Sacrum Pressure injury stage 2
- cont local wound care
#Hypokalemia - replace PRN
#Hypomagnesemia - monitr
Code status: full code
DVT prophylaxis: SCDs
Patient is in need of a semi-electric hospital bed with foam mattress due to the need to elevate head of bed above 30 degrees to prevent aspiration
and to facilitate frequent repositioning to prevent bed ulcers and pressure points.
12/25. Patient spouse at bedside. Patient requesting to be discharged home. Patient not requiring a transfusion today and blood counts are acceptable. Discussed with case management for arrangement for home discharge. Patient will require to
transition to home hospice on outpatient basis if bone marrow function does not return or any other complication of malignancy arises.

Anticipated Discharge: Within 24 hours
Subjective/Interval History
-
Date of Service: December 27, 2024
no new issues overnight
had episode of weakness and fall yesterday
Objective Data
-
Vital Signs:
Vital Signs
Temp Pulse Resp BP Pulse Ox
98.9 F 91 16 111/67 99
12/27/24 11:37 12/27/24 07:20 12/27/24 07:20 12/27/24 07:20 12/27/24 07:20
I&O
12/26/24 12/27/24 12/28/24
06:59 06:59 06:59
Intake Total 1260 / 1260 891 / 891
Output Total 1250 / 1250 750 / 750
Balance 141 / 141
Review of Systems
-
Respiratory: Reports No Symptoms
Cardiac: Reports No Symptoms
Abdomen/GI: Reports No Symptoms
Physical Exam
-
General: Negative Appears in Distress
HEENT: Negative Oxygen
Musculoskeletal: Other (No left hip echymosis)
Neuro: Awake, Alert, Oriented and No Motor Deficits
[2024-12-27 15:30] VITALS: BP 113/55
[2024-12-27 16:53] LABS: Glucose - Point of Care 127 mg/dl (70-99)
[2024-12-27] MEDS: TYLENOL 650 MG PO (17:10)
[2024-12-27] MEDS: CRESTOR 40 MG PO (17:11)
[2024-12-27] MEDS: DECADRON PO (18:04)
[2024-12-27] MEDS: MYCELEX TROCHE PO (18:04)
[2024-12-27] MEDS: MYCOSTATIN ORAL SUSPENSION PO (18:05)
[2024-12-27 19:00] VITALS: BP 100/47
[2024-12-27] MEDS: MELATONIN 3 MG PO (21:47)
[2024-12-27] MEDS: SENOKOT-S 1 TABLET PO (21:49)
[2024-12-27 23:00] VITALS: BP 112/52
[2024-12-28] MEDS: STERILE WATER FOR INJECTION IV (05:45)
[2024-12-28 07:00] VITALS: BP 91/62
[2024-12-28] MEDS: ZOVIRAX 400 MG PO (07:57)
[2024-12-28] MEDS: PROTONIX 40 MG PO (07:57)
[2024-12-28] MEDS: OCUVITE SOFTGEL 1 CAP PO (07:57)
[2024-12-28] MEDS: VITAMIN C 500 MG PO (07:57)
[2024-12-28] MEDS: VITAMIN B-12 1000 MCG PO (07:57)
[2024-12-28] MEDS: MYCELEX TROCHE 10 MG PO (07:57)
[2024-12-28] MEDS: VFEND 200 MG PO (07:58)
[2024-12-28] MEDS: DECADRON 0.5 MG PO (07:58)
[2024-12-28] MEDS: TRICOR 145 MG PO (07:58)
[2024-12-28] MEDS: KCL 20 MEQ PO (07:58)
[2024-12-28] MEDS: THERAGRAN 1 TABLET PO (07:58)
[2024-12-28] MEDS: FLOMAX 0.4 MG PO (07:58)
[2024-12-28] MEDS: MUCINEX 600 MG PO (07:58)
[2024-12-28] MEDS: MIRALAX 17 GRAMS PO (07:58)
[2024-12-28] MEDS: SENOKOT-S 1 TABLET PO (07:58)
[2024-12-28] MEDS: LEVAQUIN 500 MG PO (07:58)
[2024-12-28] MEDS: MYCOSTATIN ORAL SUSPENSION PO (07:59)
[2024-12-28] MEDS: MAGIC OR MIRACLE MOUTHWASH PO (07:59)
[2024-12-28] MEDS: NSS (PRESERVATIVE FREE) IV (08:00)
[2024-12-28] MEDS: PREPARATION H MAX STRENGTH PAIN RELIEF CREAM 1 APPLIC RECTAL (08:00)
[2024-12-28] MEDS: TOPROL XL PO (08:04)
[2024-12-28 08:12] LABS: Glucose - Point of Care 95 mg/dl (70-99)
[2024-12-28] MEDS: NOVOLOG FLEXPEN-LOW RESISTANCE SC (08:18)
--- NOTE | 2024-12-28 10:02 | W.PN.HOSP.TC ---
Today's Communication/Plan
-
monitor vitals
see plan
home hospice today
discussed with daughter over the phone
time of discharge 37 minutes
Assessment / Plan
Assessment / Plan
12/27
Patient had assisted fall yesterday and no reported injury
Denies having any issues currently

74M AML CAD DMII HTN HLD referred for evaluation severe anemia. Neutropenic, patient developed fever overnight concerning for possible sepsis. Started on empiric abx
#Neutropenic Fever
- Neutropenic precautions
- blood cultures NGTD
- urinalysis not suggestive UTI
- CXR no acute abn's
- continue acyclovir and voriconazole prophylactically
- Patient have recurrence of fever. ID re-evaluated and started on cefepime; levaquin on dc
#pancytopenia likely 2/2 Hx AML
#Acute Blood Loss Anemia
- transfuse if Plt<10 or if bleeding Plt<50
- follows with [facility]
- Oncology evaluated in light of persistent neutropenia/thrombocytopenia and discussed possibility of need of hospice if not improved.
- Venclexta also discontinued to see if patient have any bone marrow response
- Oncology considering repeat bone marrow biopsy to further gauge response of chemotherapy
- Getting daily PLT / PRBC transfusion based on CBC
#Acute Urinary Retention
- Low discontinued 12/14 passed trial of void
- developed urinary retention, low catheter replaced on 12.21
#Mechanical fall 12/19
- Complaining of right-sided pelvic abdomen pain although on the left
- On exam there is no concern of intraperitoneal bleed. No visible ecchymosis. No concern of fracture.
- will do hip/pelvic xr if have further pain issues.
#Oral Thrush, ulcers
- magic mouthwash
- Nystatin Swish
#Hemorrhoids
- Preparation H ointment QID
#Constipation
- improved with Bowel regimen
#DM-II
- AccuCheck AC & HS
- SSI
- hold empagliflozin
#HLD
#CAD
- continue fenofibrate and rosuvastatin
#Essential HTN
- continue metoprolol
#Sacrum Pressure injury stage 2
- cont local wound care
#Hypokalemia - replace PRN
#Hypomagnesemia - monitr
Code status: full code
DVT prophylaxis: SCDs
Patient is in need of a semi-electric hospital bed with foam mattress due to the need to elevate head of bed above 30 degrees to prevent aspiration
and to facilitate frequent repositioning to prevent bed ulcers and pressure points.
12/25. Patient spouse at bedside. Patient requesting to be discharged home. Patient not requiring a transfusion today and blood counts are acceptable. Discussed with case management for arrangement for home discharge. Patient will require to
transition to home hospice on outpatient basis if bone marrow function does not return or any other complication of malignancy arises.
12/28: Discussed with patient and daughter. Plan for hospice today. Patient aware that some home mes he wont need but he wants to take that decision when he goes home.
General: Negative Appears in Distress
HEENT: Negative Oxygen
Musculoskeletal: Other (No left hip echymosis)
Neuro: Awake, Alert, Oriented and No Motor Deficits

Anticipated Discharge: Today
Subjective/Interval History
-
Date of Service: December 28, 2024
denies pain
Objective Data
-
Vital Signs:
Vital Signs
Temp Pulse Resp BP Pulse Ox
99.3 F 85 18 91/62 99
12/28/24 07:00 12/28/24 07:00 12/28/24 07:00 12/28/24 08:04 12/28/24 07:00
I&O
12/27/24 12/28/24 12/29/24
06:59 06:59 06:59
Intake Total 891 / 891 600 / 600
Output Total 750 / 750 1050 / 1050
Balance 141 / 141 -450 / -450
--- NOTE | 2024-12-28 10:09 | W.DCSUMMARY ---
Discharge Summary
Discharge Data
Date of Admission: 12/10/24
Date of Discharge: 12/28/24
-
Pending Results: No
Hospital Course
74-year-old male with history of AML, CAD, diabetes mellitus, hypertension, hyperlipidemia came to the hospital with severe anemia and neutropenic fever. Patient was seen by infectious disease and was started on antibiotics. For his pancytopenia
which was likely thought was secondary to AML. Patient required multiple times blood products. His Venclexta was discontinued to see if his bone marrow will respond. Patient condition continued to get worse and after speaking to oncology, patient
was interested in hospice. Patient was then evaluated by hospice and was recommended for home hospice. For his urinary retention Hernandez catheter was also placed. Over time since patient symptoms continue to get worse and he was accepted on
hospice, he was then discharged home to be placed on home hospice.
Discharge Plan
-
Patient Disposition: Home with Hospice
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
Condition: Serious
Diet: Regular
Activity: As tolerated
Driving Restrictions: No driving
Bathing Restrictions: OK to Shower
Other Services: Hospice
Activity Restrictions/Additional Instructions:
Wound Care Instructions
Sacrum: clean with saline, skin prep periwound, honey gel, alginate, then large silicone foam. Change q other day and prn soilage.
Air mattress.
Pressure redistributing chair cushion (i.e. Air chair cushion, Roho).
frequent turning when in bed
Elevate heels off bed with pillow/s.
increase protein in diet
Follow up with wound college and career counselor or at wound care center call for an appointment.
Referrals:
Paola Lucio MD [Family Provider, [facility]] - in one week
Prescriptions:
New
sennosides-docusate sodium 8.6-50 mg Tablet
1 tab PO BID Qty: 0 0RF
loperamide 1 mg/7.5 mL Liquid
1 mg PO Q4HPRN PRN (Reason: Diarrhea) Qty: 0 0RF
guaifenesin 600 mg Tablet Extended Release 12hr
600 mg PO Q12 Qty: 0 0RF
tamsulosin 0.4 mg Capsule
0.4 mg PO DAILY Qty: 30 0RF
morphine concentrate 100 mg/5 mL (20 mg/mL) Solution
5 mg PO Q3HPRN PRN (Reason: moderate pain and/or dyspnea) Qty: 15 0RF
Rx Instructions:
5mg or 0.25mL every 3 hours as needed
Continued
cyanocobalamin (vitamin B-12) 1,000 mcg Tablet
1,000 mcg PO DAILY
fenofibrate micronized 134 mg Capsule
134 mg PO DAILY
ascorbic acid (vitamin C) [Vitamin C] 500 mg Tablet
500 mg PO DAILY
rosuvastatin [Crestor] 40 mg Tablet
40 mg PO QPM
EB-N5 DR 35 mg-3 mg- 2 mg-62.5 mcg Capsule,Delayed Release(Dr/Ec)
1 cap PO BID
metoprolol succinate 25 MG tablet extended release 24 hr
25 mg PO DAILY
prochlorperazine maleate 10 mg Tablet
10 mg PO Q8HPRN PRN (Reason: nausea)
acyclovir 400 mg Tablet
400 mg PO BID
voriconazole 200 mg Tablet
200 mg PO Q12H
tramadol 50 mg Tablet
50 mg PO Q6HPRN PRN (Reason: MODERATE PAINS)
levofloxacin 500 mg Tablet
500 mg PO DAILY
[employer] [place] Advantage 550-250-2.5-0.5 [id number]-mg Capsule
1 cap PO TID
clotrimazole 10 mg Mike
10 mg MUCOUS MEMBRANE QID
dexamethasone 0.5 mg/5 mL Elixir
0.5 mg PO DIRECTED
Rx Instructions:
patient 5ml swish and spit three times a day
Held
empagliflozin 25 mg Tablet
12.5 mg PO DAILY
Hold Instructions: unless instructed to take by hospice
Patient Comments:
GET FROM [facility]
Discontinued
therapeutic multivitamin Tablet
1 tab PO DAILY
Discharge Orders:
Discharge Patient (As Directed); Ordered 12/28/24
Ordered By: Master Weeks
Discharge Date and Time
Discharge Date/Time: 12/28/24 12:34
Print Language: GREENLANDIC
[2024-12-28] MEDS: TYLENOL 650 MG PO (11:37)
[2024-12-28] MEDS: MAGIC OR MIRACLE MOUTHWASH 5 ML PO (11:38)
[2024-12-28 12:25] VITALS: BP 110/65
--- NOTE | 2024-12-28 12:49 | CM ---
Addendum entered by Merry Giles 12/28/24 12:58:
IMM explained & placed in chart
Original Note:
Patient discharged today to home on hospice
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
dale Ortiz - equipment to be delivered to home today
PLAN: Home with hospice
transportation forms on chart
== END 2024-12-28 12:34 | disposition hospice, home (50) | DRG 809 ==
LOC: 3 WEST ACU 16:38
PROVIDERS: Hospitalist; Internal Medicine; Nurse Practitioner Acute Care; Nurse Practitioner Family; Nurse Practitioner Gerontology; ADMITTING PHYSICIAN Hospitalist; ATTENDING PHYSICIAN Internal Medicine; EMERGENCY PHYSICIAN Emergency Medicine; FAMILY PHYSICIAN Family Medicine; OTHER PHYSICIAN Hospitalist; OTHER PHYSICIAN Internal Medicine Hematology & Oncology
PROC: 30233N1 Transfusion of Nonautologous Red Blood Cells into Peripheral Vein, Percutaneous Approach (ICD-10-PCS; 2024-12-10)
PROC: 30233R1 Transfusion of Nonautologous Platelets into Peripheral Vein, Percutaneous Approach (ICD-10-PCS; 2024-12-10)
DX: D61.818 Other pancytopenia (principal); B37.0 Candidal stomatitis; C92.00 Acute myeloblastic leukemia, not having achieved remission; E87.1 Hypo-osmolality and hyponatremia; E11.9 Type 2 diabetes mellitus without complications; D70.9 Neutropenia, unspecified; R50.81 Fever presenting with conditions classified elsewhere; I10 Essential (primary) hypertension; D62 Acute posthemorrhagic anemia; K59.00 Constipation, unspecified; K64.9 Unspecified hemorrhoids; E87.6 Hypokalemia; E83.42 Hypomagnesemia; R10.2 Pelvic and perineal pain; W19.XXXA Unspecified fall, initial encounter; G47.33 Obstructive sleep apnea (adult) (pediatric); K12.1 Other forms of stomatitis; I25.10 Atherosclerotic heart disease of native coronary artery without angina pectoris; E78.00 Pure hypercholesterolemia, unspecified; R33.8 Other retention of urine; L89.152 Pressure ulcer of sacral region, stage 2; Z87.891 Personal history of nicotine dependence; Z95.5 Presence of coronary angioplasty implant and graft; Z79.84 Long term (current) use of oral hypoglycemic drugs; I25.2 Old myocardial infarction
CPT/HCPCS: 36430; 71045; 71046; 80048; 80053; 81003; 81015; 82607; 82728; 82746; 82962; 83036; 83540; 83550; 83735; 84100; 84145; 85025; 85027; 85049; 85610; 85730; 86850; 86900; 86901; 86920; 87040; 87086; 87641; 96374; 97116; 97163; 97166; 97530; 97535; 99284; J2185; P9016; P9058; P9073